=== PATIENT | female | born 1940 | race Caucasian/White ===

== ENCOUNTER 2016-09-03 02:55 | Inpatient (IN) | payer OTHER ==
[~2016-09-03] VITALS: Ht 152.4 cm; Wt 68.5 kg
[~2016-09-03 02:55] MED LIST: ACET325T96 PO; ADAL1KIT SQ; AMLO-114 PO; ASPCH81X PO; CARV6.25 PO; CLB100 PO; CRAN1CAP15 PO; DOCU-94 PO; FAMO20TA11 PO; FERR325T5 PO; FLV1 PO; LCTX PO; LSN20 PO; METH2.5T PO; METO1TAB71 PO; PRAV80TA2 PO
[2016-09-03] MEDS ORDERED: OPTIRAY 320 IV PRN (03:15)
--- NOTE | 2016-09-03 03:17 | EMERGENCY ROOM VISIT NOTE ---
History Report prepared by Carina: Trinidad Chou Under the Supervision of: Dr. Agustin Odonnell M.D. First contact with patient: 03:03 Chief Complaint: CHEST PAIN Stated Complaint: CHEST PAIN History of Present Illness The patient is a 76 year old female who presents to the Emergency Room with complaints of intermittent central chest pain that began last evening. The patient states that she notices the chest pain more when she takes a deep breath. She additionally notes shortness of breath today, but denies any nausea , headache, or loss of consciousness. The patient notes a history of previous DVTs. She states that recently she developed left sided neck pain and notes that she cannot sleep on her left side. The patient denies any history of an irregular heart beat or kidney failure. Source of History: patient Onset: last evening Position: chest (central) Timing: other (persistent) Modifying Factors (Worsening): breathing (deep) Associated Symptoms: + SOB, No LOC, No headache, No nausea Review of Systems See HPI for pertinent positives & negatives. A total of 10 systems reviewed and were otherwise negative. Past Medical & Surgical Medical Problems: (1) Carpal Tunnel Syndrome (2) Hx Of Breast Malignancy (3) Hx-Venous Thrombosis&Embolism (4) Hypertension Nos (5) Osteoarthros Nos-Unspec Surgical Problems: (1) Knee Joint Replacement Status Family History Cancer Heart disease Hypertension Social History Smoking Status: Never Smoker Alcohol Use: none Drug Use: none Marital Status: Housing Status: lives with family Occupation Status: retired Current/Historical Medications Scheduled Acetaminophen Tab (Tylenol), 650 MG PO HS Adalimumab (Humira), 40 MG SQ MONTHLY Amlodipine (Norvasc), 10 MG PO DAILY Aspirin (Aspirin Chewable), 81 MG PO DAILY Carvedilol (Coreg), 6.25 MG PO BID Cranberry-Vitamin C-Vitamin E (Cranberry), 1 CAP PO DAILY Famotidine (Pepcid), 20 MG PO BID Ferrous Sulfate (Ferrous Sulfate), 325 MG PO DAILY Folic Acid (Folvite *), 1 MG PO DAILY Lactobacillus Acidophilus (Lactinex), 1 TAB PO DAILY Lisinopril (Zestril), 20 MG PO BID Methotrexate (Methotrexate), 10 MG PO WK Metoprolol Succinate (Toprolxl (Toprol-Xl), 200 MG PO HS Pravastatin Sodium (Pravastatin Sodium), 80 MG PO HS Scheduled PRN Celecoxib (Celebrex), 100 MG PO DAILY PRN for Pain Docusate Sodium (Colace), 100 MG PO DAILY PRN for Constipation Allergies Coded Allergies: No Known Allergies (Verified , NONE, 05/03/16) Physical Exam Vital Signs Date Time Temp Pulse Resp B/P Pulse Ox O2 Delivery O2 Flow Rate FiO2 09/03/16 04:59 80 20 107/64 93 Room Air 09/03/16 04:41 82 15 126/76 94 Room Air 09/03/16 03:07 97 09/03/16 03:05 Room Air 09/03/16 02:56 36.6 72 20 135/64 97 Room Air Physical Exam GENERAL: Patient is well and elderly appearing and in minimal distress. HEENT: No acute trauma, normocephalic atraumatic, mucous membranes moist, no nasal congestion, no scleral icterus. NECK: No stridor, no adenopathy, no meningismus, trachea is midline. LUNGS: No dyspnea. Clear to auscultation and equal bilaterally. No wheeze, no rhonchi. HEART: Irregular rate and rhythm. No murmurs, rubs, gallops appreciated. ABDOMEN: Soft, nontender, bowel sounds positive, no masses appreciated, no peritonitis. BACK: No midline tenderness, no CVA tenderness EXTREMITIES: Normal motion all extremities, no cyanosis, no edema. NEUROLOGIC: Alert and oriented, no acute motor or sensory deficits, no focal weakness, cranial nerves grossly intact. SKIN: No rash, no jaundice, no diaphoresis. Medical Decision & Procedures ER Provider Diagnostic Interpretation: X ray results are stated below per my interpretation: Chest: 1 view: No infiltrate, no effusion, normal cardiac border. Multiple small nodules noted in bilateral lungs. X ray results and stated below per my interpretation and radiologist interpretation. Other radiology results and stated below per my review and radiologist interpretation: CT Chest: Comparison February 2013 No evidence for PE. Cardiomegaly. Small hiatal hernia. Small right pleural effusion. Areas of suspected atelectasis. Septal thickening. Correlate for edema. Lung nodules. Some of these nodules are stable compared to the prior, for example nodule left lung apex. Other nodules do appear increased in size, example subpleural nodular density in right middle lobe. Possible new and/or worsening nodules, example lingula. Left renal cyst, similar appearing skin thickening in the right breast, hiatal hernia and other incidental findings. Radiologist: Edgar Rodriguez MD Study ready at 0354 and initial results transmitted at 0443 Laboratory Results 09/03/16 03:13 Red Blood Count 3.53, Mean Corpuscular Volume 100.3, Mean Corpuscular Hemoglobin 32.9, Mean Corpuscular Hemoglobin Concent 32.8, Mean Platelet Volume 9.4, Neutrophils (%) (Auto) 75.2, Lymphocytes (%) (Auto) 11.4, Monocytes (%) ( Auto) 11.7, Eosinophils (%) (Auto) 1.1, Basophils (%) (Auto) 0.4, Neutrophils # (Auto) 7.89, Lymphocytes # (Auto) 1.19, Monocytes # (Auto) 1.22, Eosinophils # ( Auto) 0.11, Basophils # (Auto) 0.04 09/03/16 03:13 Test 09/03/16 03:13 09/03/16 03:16 White Blood Count 10.47 K/uL (4.8-10.8) Red Blood Count 3.53 M/uL (4.2-5.4) Hemoglobin 11.6 g/dL (12.0-16.0) Hematocrit 35.4 % (37-47) Mean Corpuscular Volume 100.3 fL (80-100) Mean Corpuscular Hemoglobin 32.9 pg (25-34) Mean Corpuscular Hemoglobin Concent 32.8 g/dl (32-36) Platelet Count 294 K/uL (130-400) Mean Platelet Volume 9.4 fL (7.4-10.4) Neutrophils (%) (Auto) 75.2 % Lymphocytes (%) (Auto) 11.4 % Monocytes (%) (Auto) 11.7 % Eosinophils (%) (Auto) 1.1 % Basophils (%) (Auto) 0.4 % Neutrophils # (Auto) 7.89 K/uL (1.4-6.5) Lymphocytes # (Auto) 1.19 K/uL (1.2-3.4) Monocytes # (Auto) 1.22 K/uL (0.11-0.59) Eosinophils # (Auto) 0.11 K/uL (0-0.5) Basophils # (Auto) 0.04 K/uL (0-0.2) RDW Standard Deviation 52.9 fL (36.4-46.3) RDW Coefficient of Variation 14.6 % (11.5-14.5) Immature Granulocyte % (Auto) 0.2 % Immature Granulocyte # (Auto) 0.02 K/uL (0.00-0.02) Prothrombin Time 10.7 SECONDS (9.0-12.0) Prothromb Time International Ratio 1.0 (0.9-1.1) Activated Partial Thromboplast Time 27.2 SECONDS (21.0-31.0) Partial Thromboplastin Ratio 1.0 Est Creatinine Clear Calc Drug Dose 45.6 ml/min Estimated GFR () 68.4 Estimated GFR (Non- 59.0 BUN/Creatinine Ratio 17.6 (10-20) Calcium Level 9.1 mg/dl (8.5-10.1) Total Creatine Kinase 45 U/L (26-192) Creatine Kinase MB < 0.5 ng/ml (0.5-3.6) Creatine Kinase MB Ratio (0-3.0) Troponin I < 0.015 ng/ml (0-0.045) Bedside Hemoglobin 12.6 g/dl (12.0-16.0) Bedside Hematocrit 37 % (37-47) Bedside Sodium 141 mEq/L (135-144) Bedside Potassium 4.1 mEq/L (3.3-5.0) Bedside Chloride 103 mEq/L (101-112) Bedside Total CO2 23 mEq/l (24-31) Anion Gap 19.0 mmol/L (16-25) Bedside Blood Urea Nitrogen 16 mg/dl (7-18) Bedside Creatinine 0.9 mg/dl (0.6-1.3) Bedside Glucose (other) 120 mg/dl (70-99) Bedside Ionized Calcium (Lance) 1.18 mmol/l (1.12-1.32) Laboratory results as reviewed by me. Medications Administered Medications (Trade) Dose Ordered Sig/Abdirizak Route Start Time Stop Time Status Last Admin Dose Admin Aspirin (Aspirin Chew) 324 mg NOW STAT PO 09/03/16 04:56 09/03/16 04:57 DC 09/03/16 05:14 324 MG ECG Indication: chest pain Rate (beats per minute): 74 Rhythm: atrial fibrillation Findings: no acute ischemic change, other (QTC of 439) Comparison ECG Date: 03/14/14 Change: EKG Change, when compared to EKG on 03/14/14, Atrial fibrillation is new. ED Course 0305: The patient was evaluated in room B4. A complete history and physical exam was performed. 0408: I reevaluated the patient and she states that she is feeling fine. Her son is also here at this time. 0456: I reevaluated the patient and she is resting comfortably. I discussed the exam findings with her and her son and I discussed the treatment plan. They verbalized complete understanding and agreement. The patient will be evaluated for further treatment. Ordered Aspirin 324 mg PO. 050: I discussed the patient's case with Vadim Du. He is going to evaluate the patient for further treatment. Medical Decision Differential: Cardiac Ischemia (STEMI, NSTEMI, Unstable Angina, etc), Aortic Dissection, Arrhythmia, Pulmonary Embolism, Pneumonia, Pneumothorax, MSK, Infectious, Pericarditis/Myocarditis, Esophageal Rupture, Gastrointestinal, amongst other pathologies entertained. Pleasant 76 yr old female arrives much improved from home after awakening with substernal CP that she notes was pleuritic in nature. Feeling well now and EKG without ischemia though does show new onset Afib. Trop negative. Given history of DVT and her report of pleuritic symptoms felt that CT PE would be necessary. Fortunately no PE noted though there are several lung nodules which have increased in size from 2014 and with her history of breast CA this is concerning. I relayed these findings to patient and son. Given CP she will need cardiac rule out and can get further work-up evaluation for afib, though remains with good rate control here in ED as she is already on Toprol XL. Given ASA 324mg and without pain nor discomfort while in ED. Consults Time Called: [phone] Consulting Physician: Vadim Du Returned Call: 050 I discussed the patient's case with Vadim Du. He is going to evaluate the patient for further treatment. Impression Primary Impression: Substernal chest pain Additional Impressions: New onset atrial fibrillation Lung nodules Scribe Attestation The scribe's documentation has been prepared under my direction and personally reviewed by me in its entirety. I confirm that the note above accurately reflects all work, treatment, procedures, and medical decision making performed by me. Departure Information Dispostion Being Evaluated By Hospitalist Referrals Cierra Damian M.D. (MEDICAL) (PCP) Problem Qualifiers
[2016-09-03 03:22] LABS: BASO % 0.4 %; BASO ABS # 0.04 K/uL (0-0.2); COMPLETE YES; EOS % 1.1 %; HEMATOCRIT 35.4 % (37-47); IG% 0.2 %; LYMPH % 11.4 %; LYMPH ABS # 1.19 K/uL (1.2-3.4); MEAN CELL VOLUME 100.3 fL (80-100); MEAN CORPUSCULAR HEMOGLOBIN 32.9 pg (25-34); MEAN CORPUSCULAR HGB CONC 32.8 g/dl (32-36); MEAN PLATELET VOLUME 9.4 fL (7.4-10.4); MONO % 11.7 %; NEUT % 75.2 %; PLATELET COUNT 294 K/uL (130-400); RED BLOOD COUNT 3.53 M/uL (4.2-5.4); WHITE BLOOD COUNT 10.47 K/uL (4.8-10.8)
[2016-09-03 03:32] LABS: ISTAT CREATININE 0.9 mg/dl (0.6-1.3); ISTAT HEMOGLOBIN 12.6 g/dl (12.0-16.0); ISTAT IONIZED CALCIUM 1.18 mmol/l (1.12-1.32)
[2016-09-03 03:36] LABS: PROTHROMBIN TIME (PATIENT) 10.7 SECONDS (9.0-12.0)
[2016-09-03 03:40] LABS: BLOOD UREA NITROGEN 17 mg/dl (7-18); BUN/CREATININE RATIO 17.6 (10-20); CALCIUM 9.1 mg/dl (8.5-10.1); CARBON DIOXIDE 24 mmol/L (21-32); CHLORIDE 106 mmol/L (98-107); CREATININE 0.95 mg/dl (0.60-1.20); GLUCOSE 120 mg/dl (70-99); POTASSIUM 4.1 mmol/L (3.5-5.1); SODIUM 141 mmol/L (136-145)
[2016-09-03] MEDS ORDERED: AMLO-114 PO (04:31)
[2016-09-03] MEDS ORDERED: LISI-725 PO (04:33)
[2016-09-03] MEDS ORDERED: ASPIRIN 324 MG CHEW PO STA (04:56)
[2016-09-03] MEDS ORDERED: ONDANSETRON INJ 2 MG/ML 2 ML VIAL IV PRN (05:45)
[2016-09-03] MEDS ORDERED: ACETAMINOPHEN 325 MG TAB PO PRN (05:45)
[2016-09-03] MEDS ORDERED: NITROGLYCERIN 0.4 MG SL PER TAB CHARGE SL PRN (05:45)
[2016-09-03] MEDS ORDERED: CeleBREX 100 MG CAP PO PRN (06:00)
[2016-09-03] MEDS ORDERED: DOCUSATE SODIUM 100 MG CAP PO PRN (06:00)
[2016-09-03] MEDS ORDERED: HEPARIN SOD 5000 UNIT/0.5 ML CARP ONE (06:09)
[2016-09-03] MEDS ORDERED: HEPARIN 25000 UNIT/500 ML D5W ONE (06:09)
[2016-09-03 06:45] VITALS: BP 130/74; PULSE 83; TEMP 36.6; O2SAT 93; Ht 152.4 cm; Wt 68.5 kg
--- NOTE | 2016-09-03 07:19 | DIAGNOSTIC IMAGING REPORT ---
CHEST ONE VIEW PORTABLE CLINICAL HISTORY: Chest pain. COMPARISON STUDY: Chest CT and chest radiograph March 14, 2014. FINDINGS: There is a trace right pleural effusion. There is pulmonary vascular congestion. Mild cardiomegaly is noted. Note is made of a 1.5 cm nodular density within the right midlung. This has increased. IMPRESSION: 1. Pulmonary vascular congestion with a trace right pleural effusion. 2. 1.5 cm nodular density within the right midlung. This nodule is indeterminate but increased since prior exam. Electronically signed by: Holland Barros M.D. 09/03/2016 7:17 AM Dictated Date/Time: 09/03/2016 7:13 AM
--- NOTE | 2016-09-03 07:42 | DIAGNOSTIC IMAGING REPORT ---
CT ANGIOGRAM OF THE CHEST CLINICAL HISTORY: Atypical chest pain. COMPARISON STUDY: Chest x-ray dated 09/03/2016. Chest CT dated 03/14/2014. TECHNIQUE: Following the IV administration of 92 cc of Optiray 320, CT angiogram of the chest was performed from the upper abdomen to the thoracic inlet utilizing the pulmonary embolus protocol. Images are reviewed in the axial, sagittal, and coronal planes. 3-D MIPS images are created and assessed. IV contrast was administered without complication. CT DOSE: 376.61 mGy.cm FINDINGS: Thyroid: Atrophic. Thoracic aorta: There is mild atherosclerotic calcification of the thoracic aorta, which is normal in caliber and demonstrates standard 3-vessel arch anatomy. No dissection is seen. Pulmonary vasculature: The pulmonary trunk is normal in caliber. There are no filling defects identified in main, lobar, or segmental pulmonary branches to suggest pulmonary embolus. Heart: The heart is enlarged and without pericardial effusion. The coronary arteries are densely calcified. Lungs and pleural spaces: There is biapical scarring. There is a small right pleural effusion and bibasilar atelectasis. No pleural effusion is seen on the left. Curvilinear/nodular scarring is identified in the right middle lobe. The region of nodularity has increased in size from 03/14/2014, now measuring up to 2.2 cm (previously measured 1.6 cm). There is additional focus of subpleural nodularity in the anterior left upper lobe on image #202 which measures up to 10 mm. Patchy nodular density at this site on the 2014 examination. There is scarring noted in the lingula with volume loss. Pleural thickening is identified anteriorly in the right middle lobe. Additional nodules are seen at the left apex on image #20 and 46 measuring 8mm and in the left lower lobe on image #2011 measuring 6 mm. These are unchanged from 03/14/2014. The trachea and central airways appear clear. Mediastinum: There is a prominent subcarinal lymph node which measures up to 1.4 cm in short axis. No additional enlarged mediastinal lymph nodes are identified. Coretta: There are prominent hilar lymph nodes which measure up to 9 mm in short axis. Axillae: There is no axillary lymphadenopathy. Upper abdomen: There is a small to moderate hiatal hernia. A 2.1 cm cyst arises from the upper pole of left kidney. Skeletal structures: The skeletal structures are osteopenic. No lytic or blastic bony lesions are seen. Degenerative change and hyperkyphosis is noted in the thoracic spine. Advanced arthritic change is present in the shoulders. Soft tissues: There is asymmetric dermal thickening identified in the right breast as compared to the left. IMPRESSION: 1. There is no evidence of pulmonary embolus in the main, lobar, or segmental pulmonary arteries. 2. Cardiomegaly. 3. Small right pleural effusion. 4. There is a region of curvilinear scarring with nodularity identified in the right middle lobe. The nodular component has modestly increased in size from 2014, as has a focus of subpleural nodularity in the left upper lobe. There is also increasing pleural thickening in the anterior right middle lobe. The appearance is atypical, and although this may be related to chronic infection or inflammation a [address] follow-up is recommended. Neoplasm is considered less likely but remains the diagnosis of exclusion. 5. Additional pulmonary nodules are unchanged from the 2014 examination. 6. Asymmetric dermal thickening in the right breast is identified, and appears similar to the 2014 examination. If not recently performed follow-up with mammography is recommended for further assessment. Electronically signed by: Óscar Thornton M.D. 09/03/2016 7:40 AM Dictated Date/Time: 09/03/2016 7:28 AM
--- NOTE | 2016-09-03 07:52 | HISTORY & PHYSICAL EXAMINATION ---
DATE OF ADMISSION: 09/03/2016 PRIMARY CARE PHYSICIAN: Dr. Damian. CHIEF COMPLAINT: Sharp center chest pain when waking with deep breathing. HISTORY OF PRESENT COMPLAINT: She is a 76-year-old female with significant past medical history including severe rheumatoid arthritis, hypertension, hyperlipidemia, iron-deficiency anemia and remote history of deep venous thrombosis on the right leg. Apparently, woke up early this morning with center and back of the chest pain that was worse with deep breathing. She did have some shortness of breath with it. She did not have any nausea, vomiting, any palpitation associated with it. She denies to any fever, chills or rigors. She denies to any problem with urine and/or bowel habits. She does not have any acute arthritis involving any joint and no headache, blurred vision, numbness or tingling in the extremities. In the Emergency Room, she was noted to have an irregularly irregular heart rhythm, but the rate was controlled. An apparent CAT scan of the chest did not show any pulmonary embolism, but given the chest pain and new onset atrial fibrillation, she was advised to the telemetry unit for continuation of care. PAST MEDICAL HISTORY: Significant for severe rheumatoid arthritis, hypertension, hyperlipidemia, iron-deficiency anemia and history of swallowing problems. PAST SURGICAL HISTORY: Left total knee arthroplasty, right total knee arthroplasty, carpal tunnel surgery and partial mastectomy. FAMILY HISTORY: Sister has diabetes. Father had heart disorder. Mother had heart disorder. Father had hypertension too. SOCIAL HISTORY: She is . She lives with her son. She does not smoke and does not drink and she has been reasonably ambulant. ALLERGIES: NKDA. MEDICATIONS: She has been on Tylenol 650 mg at night, amlodipine 10 mg daily, aspirin 81 mg daily, Coreg 6.25 mg b.i.d., Celebrex 100 mg daily, docusate sodium 100 mg daily, Pepcid 20 mg b.i.d., ferrous sulfate 325 mg daily, folic acid 1 mg daily, Lactinex 1 tablet daily, lisinopril 20 mg b.i.d., methotrexate 10 mg every week, Toprol-XL 200 mg at bedtime, Humira as directed, cranberry 1 capsule daily and pravastatin 40 mg daily. REVIEW OF SYSTEMS: Other system review is unremarkable except noted in history of present illness. PHYSICAL EXAMINATION: GENERAL: On examination in the Emergency Room, she was not having any acute symptoms, but she did mention that she still has some pain in the chest. VITAL SIGNS: Temperature 36.6, pulse was 80, blood pressure 107/64, saturation 93% on room air. HEENT: Unremarkable. NECK: Supple. No JVD, no bruit. CHEST: Decreased breath sound at bases, but no wheezing and/or crackles. HEART: S1, S2, irregular with a 2/6 systolic murmur over precordium. ABDOMEN: Soft, benign, nontender, no organomegaly. Bowel sounds present. EXTREMITIES: Trace edema bilaterally. MUSCULOSKELETAL: Examination of the musculoskeletal system did show changes of severe rheumatoid arthritis involving hands and feet, but no acute arthritis in any joint. CENTRAL NERVOUS SYSTEM: She was alert, awake, oriented x3. No focal sensory and/or motor deficit appreciated. LABORATORY DATA: Noted today white count was 10.47, H\T\H 11.6/35.4, platelets was 294. Sodium 141, potassium 4.1, chloride 103, carbon dioxide 24, BUN 16, creatinine 0.95, random glucose 120, ionized calcium 1.18, troponin less than 0.015. INR 1.0, PTT ratio 1.0. CT of the chest reported as no evidence of pulmonary embolism. It did show cardiomegaly as well as a small hiatal hernia, a small right pleural effusion and areas of suspected atelectasis. There are lung nodules noted, some of these nodules seem to be stable and others are slightly bigger. Further followup advised. Left renal cyst, similar-appearing skin thickening in the right breast and partial hiatal hernia. I will wait for a formal report. EKG was in atrial fibrillation, rate of [address]-T wave changes. IMPRESSION AND PLAN: 1. Atrial fibrillation with controlled heart rate. The patient will be admitted to telemetry unit. She will be started with intravenous heparin and echocardiogram and cardiology consultation. We will continue her current medications. Further management will depend on claims correspondence clerk. 2. Sharp central chest pain, no evidence of pulmonary embolism. She has a history of breast mass and also a history of deep vein thrombosis. A small pulmonary emboli causing the pain cannot be ruled out. Again, serial cardiac enzymes and echocardiogram to rule out acute coronary syndrome. 3. Severe rheumatoid arthritis. Continue with methotrexate. She also takes Humira which will be on hold for now since she is in the hospital. 4. Hypertension. Blood pressure seems to be controlled. 5. Hyperlipidemia. Continue with current medication. 6. Iron-deficiency anemia. Continue with iron tablet. 7. Gastrointestinal prophylaxis with Pepcid. 8. Deep vein thrombosis prophylaxis. She will be put on heparin. 9. Code status. She will be a full code. In my clinical assessment, the beneficiary meets criteria as per CMS for 2 midnight stay in the hospital. ADONIS
[2016-09-03 08:00] VITALS: O2SAT 93
[2016-09-03] MEDS: FAMOTIDINE 20 MG TAB PO SCH ×2 (09:00→19:59)
[2016-09-03] MEDS: FERROUS SULFATE 325 MG TAB PO SCH (09:00)
[2016-09-03] MEDS: CARVEDILOL 6.25 MG TAB PO SCH ×2 (09:00→20:02)
[2016-09-03] MEDS ORDERED: NON-FORMULARY MEDICATION (Cranberry-Vitamin C-Vitamin E (Cranberry) 1 CAP) PO SCH (09:00)
[2016-09-03] MEDS: AMLODIPINE BESYLATE 5 MG TAB PO SCH (09:00)
[2016-09-03] MEDS: LISINOPRIL 20 MG TAB PO SCH ×2 (09:00→20:01)
[2016-09-03] MEDS: ASPIRIN 81 MG ECTAB PO SCH (09:00)
[2016-09-03 12:00] VITALS: O2SAT 93
[2016-09-03 13:03] LABS: PARTIAL THROMBOPLASTIN RATIO 1.7
[2016-09-03] MEDS: LACTOBACILLUS ACIDOPHILUS (FLORANEX) TAB PO SCH (13:36)
--- NOTE | 2016-09-03 14:09 | CARDIOLOGY CONSULTATION ---
DATE OF CONSULTATION: 09/03/2016 DATE OF CONSULTATION: 09/03/2016. This is a consultation for Dr. Donohue. REASON FOR CONSULTATION: Atrial fibrillation. HISTORY OF PRESENT ILLNESS: This is a 76-year-old female who has been treated for rheumatoid arthritis, iron deficiency anemia, hypertension and dyslipidemia. The patient was in her usual state of health until earlier this morning when she suddenly awoke with epigastric retrosternal chest pain radiating to her back. When she presented to the Emergency Department, she was found to be in atrial fibrillation. The length of time she has been in atrial fibrillation is unknown. She did not have tachycardia and her rate was controlled. She has been on carvedilol, which may have blunted the response to the atrial fibrillation. She has no significant cardiac history. No prior history of congestive heart failure or cardiac arrhythmias. No prior history of coronary artery disease. In the Emergency Department, the patient had a CAT scan that did not show any evidence of pulmonary emboli. Her cardiac markers are negative and she has no acute changes on her EKG. She is currently comfortable and pain free. To my knowledge I did not believe she received any treatment for her atrial fibrillation other than being started on intravenous heparin. ALLERGIES: No known medical allergies. PAST MEDICAL HISTORY: As outlined in history of chief complaint. The patient has a history of severe rheumatoid arthritis, hypertension, hyperlipidemia, iron deficiency anemia, bilateral total knee replacements. FAMILY MEDICAL HISTORY: Noncontributory. SOCIAL HISTORY: She is but lives with her son. She is a nonsmoker. REVIEW OF SYSTEMS: A 10-point review of systems is negative except for the history of chief complaint. PHYSICAL EXAMINATION: GENERAL: She is alert and oriented in no acute distress. VITAL SIGNS: Pulse is irregular at 75 beats per minute and she is afebrile, blood pressure is 110/60. HEAD, EYES, EARS, NOSE, AND THROAT: She wears corrective lenses. Mucous membranes are moist. NECK: The neck veins are flat. Carotids have good upstrokes bilaterally without bruits. Thyroid is nonpalpable. RESPIRATORY: Breath sounds equal bilaterally and clear to auscultation. CARDIOVASCULAR: Heart has an irregular rhythm. There is a systolic murmur along the left sternal border. No S3, S4. GASTROINTESTINAL: Abdomen is soft, nontender without organomegaly. EXTREMITIES: Free of edema, digit clubbing, or cyanosis. NEUROLOGIC: Grossly intact. SKIN: Warm to touch. LYMPH NODES: Negative to palpation. LABORATORY DATA: Per the history of chief complaint. IMPRESSION: 1. Newly discovered atrial fibrillation which is asymptomatic. 2. Sharp chest discomfort radiating to the patient's back of undetermined etiology. 3. Severe rheumatoid arthritis. 4. Hypertension. 5. Hyperlipidemia. 6. Iron deficiency anemia. RECOMMENDATIONS: I will review the patient's echocardiogram when it is complete. It is possible that the atrial fibrillation is just a coincidence being discovered this admission. Her chest pain is somewhat atypical and could be due to her rheumatoid arthritis and pain along the costosternal joints. She could also have symptoms related to a GI problem such as cholelithiasis. In any case, I will review the echocardiogram when it is available. I would continue the intravenous heparin. All her other medications should remain the same. We will follow along with you during her hospital stay.
--- NOTE | 2016-09-03 14:37 | ECHOCARDIOGRAM REPORT ---
*NOTICE TO RECEIVING REPUBLICAN AGENCY This information is strictly Confidential and protected under [place] law. [place] law prohibits you from making any further disclosure of this information unless further disclosure is expressly permitted by the written consent of the person to whom it pertains or is authorized by law. A general authorization for the release of medical or other information is not sufficient for this purpose. Hospital accepts no responsibility if the information is made available to any other person, INCLUDING THE PATIENT. Interpretation Summary * Name: MAAME ANGULO V Study Date: 09/03/2016 08:39 AM BP: 130/74 mmHg * Patient Location: [facility]\S\N282\S\1 HR: 77 * : 1940 (M/d/yyyy) Gender: Female Height: 60 in * Age: 76 yrs Ethnicity: CA Weight: 155 lb * Ordering Physician: Rosalina Donohue * Referring Physician: Self, Referred * Performed By: Janeen Craft RDCS * * Reason For Study: Atrial Fibrillation * BSA: 1.7 m2 * -- Conclusions -- * The left atrium is severely dilated. * The right atrium is moderate to severely dilated. * The left ventricle is normal in size. * Ejection Fraction = 55-60%. * The right ventricular systolic function is normal. * There is mild mitral regurgitation. * There is moderate tricuspid regurgitation. Procedure Details * A complete two-dimensional transthoracic echocardiogram was performed (2D, M-mode, Doppler and color flow Doppler). Left Ventricle * The left ventricle is normal in size. * There is normal left ventricular wall thickness. * Ejection Fraction = 55-60%. * Left ventricular systolic function is normal. * The left ventricular wall motion is normal. Right Ventricle * The right ventricle is normal size. * The right ventricular systolic function is normal. Atria * The left atrium is severely dilated. * The right atrium is moderate to severely dilated. * The interatrial septum is intact with no evidence for an atrial septal defect. Mitral Valve * The mitral valve is grossly normal. * There is mild mitral regurgitation. Tricuspid Valve * The tricuspid valve is not well visualized, but is grossly normal. * There is moderate tricuspid regurgitation. Aortic Valve * The aortic valve is tricuspid. The leaflet thickness if normal. There is no aortic stenosis, and no significant insufficiency. * Aortic stenosis is absent. * There is no significant aortic regurgitation. Great Vessels * The aortic root and proximal ascending aorta are normal sized. Pericardium/Pleural * There is no pericardial effusion. MMode 2D Measurements and Calculations IVSd 1.1 cm IVSs 1.2 cm LVIDd 4.5 cm LVIDs 3.2 cm LVPWd 1.1 cm LVPWs 1.2 cm IVS/LVPW 0.97 FS 28.8 % EDV(Teich) 92.0 ml ESV(Teich) 40.9 ml EF(Teich) 55.5 % EDV(cubed) 90.5 ml ESV(cubed) 32.7 ml EF(cubed) 63.9 % % IVS thick 9.8 % % LVPW thick 9.8 % LV mass(C)d 167.2 grams LV mass(C)dI 99.8 grams/m\S\2 LV mass(C)s 115.0 grams LV mass(C)sI 68.6 grams/m\S\2 SV(Teich) 51.1 ml SI(Teich) 30.5 ml/m\S\2 SV(cubed) 57.8 ml SI(cubed) 34.5 ml/m\S\2 Ao root diam 2.7 cm Ao root area 5.7 cm\S\2 ACS 1.6 cm LA dimension 4.2 cm LA/Ao 1.6 LVAd ap4 18.2 cm\S\2 LVLd ap4 7.3 cm EDV(MOD-sp4) 42.1 ml EDV(sp4-el) 38.6 ml LVAs ap4 11.8 cm\S\2 LVLs ap4 6.6 cm ESV(MOD-sp4) 19.4 ml ESV(sp4-el) 18.0 ml EF(MOD-sp4) 53.8 % EF(sp4-el) 53.3 % LVAd ap2 17.8 cm\S\2 LVLd ap2 7.0 cm EDV(MOD-sp2) 39.2 ml EDV(sp2-el) 38.4 ml LVAs ap2 10.9 cm\S\2 LVLs ap2 6.4 cm ESV(MOD-sp2) 18.3 ml ESV(sp2-el) 15.9 ml EF(MOD-sp2) 53.3 % EF(sp2-el) 58.6 % LVLd %diff -4.29 % EDV(MOD-bp) 39.4 ml LVLs %diff -3.29 % ESV(MOD-bp) 18.3 ml EF(MOD-bp) 53.6 % SV(MOD-sp4) 22.6 ml SI(MOD-sp4) 13.5 ml/m\S\2 SV(MOD-sp2) 20.9 ml SI(MOD-sp2) 12.5 ml/m\S\2 SV(MOD-bp) 21.1 ml SI(MOD-bp) 12.6 ml/m\S\2 SV(sp4-el) 20.6 ml SI(sp4-el) 12.3 ml/m\S\2 SV(sp2-el) 22.5 ml SI(sp2-el) 13.5 ml/m\S\2 Doppler Measurements and Calculations Ao V2 max 148.0 cm/sec Ao max PG 8.8 mmHg Ao max PG (full) 5.5 mmHg LV V1 max PG 3.2 mmHg LV V1 max 89.7 cm/sec PA V2 max 116.7 cm/sec PA max PG 5.5 mmHg PI max shaw 180.5 cm/sec PI max PG 13.0 mmHg PI dec slope 124.5 cm/sec\S\2 PI P1/2t 424.7 msec TR max shaw 247.0 cm/sec
[2016-09-03] MEDS: HEPARIN 25,000 UNIT/500ML D5W 500 ML IV PRN ×2 (14:47→22:24)
[2016-09-03] MEDS ORDERED: HEPARIN IV BOLUS 2,000 UNIT in SYRINGE 0 ML IV ONE (15:00)
[2016-09-03 15:29] VITALS: BP 122/69; PULSE 76; TEMP 36.7; O2SAT 90
[2016-09-03] MEDS ORDERED: WARFARIN SOD 7.5 MG TAB PO SCH (16:00)
--- NOTE | 2016-09-03 17:17 | Progress Note ---
Medicine Progress Note Date & Time of Visit: Sep 03, 2016 at 17:07. Subjective Patient seen and examined. Still with some chest pain, but improved compared to yesterday. Denies SOB, palpitations. Objective Last 8 Hrs Date Time Temp Pulse Resp B/P Pulse Ox O2 Delivery O2 Flow Rate FiO2 09/03/16 15:29 36.7 76 18 122/69 90 Room Air 09/03/16 12:00 93 Room Air Physical Exam: General-awake; alert; NAD Eyes-EOMI; no scleral icterus Neck-no stridor; trachea midline Lungs-CTA bilaterally; no wheezes/crackles Heart-irregularly irregular Abdomen-soft; NTND; nBS Extremities-rheumatoid deformities of hands Neuro-no gross focal deficits Laboratory Results: Last 24 Hours Test 09/03/16 03:13 09/03/16 03:16 09/03/16 12:40 White Blood Count 10.47 K/uL Red Blood Count 3.53 M/uL Hemoglobin 11.6 g/dL Hematocrit 35.4 % Mean Corpuscular Volume 100.3 fL Mean Corpuscular Hemoglobin 32.9 pg Mean Corpuscular Hemoglobin Concent 32.8 g/dl Platelet Count 294 K/uL Mean Platelet Volume 9.4 fL Neutrophils (%) (Auto) 75.2 % Lymphocytes (%) (Auto) 11.4 % Monocytes (%) (Auto) 11.7 % Eosinophils (%) (Auto) 1.1 % Basophils (%) (Auto) 0.4 % Neutrophils # (Auto) 7.89 K/uL Lymphocytes # (Auto) 1.19 K/uL Monocytes # (Auto) 1.22 K/uL Eosinophils # (Auto) 0.11 K/uL Basophils # (Auto) 0.04 K/uL RDW Standard Deviation 52.9 fL RDW Coefficient of Variation 14.6 % Immature Granulocyte % (Auto) 0.2 % Immature Granulocyte # (Auto) 0.02 K/uL Prothrombin Time 10.7 SECONDS Prothromb Time International Ratio 1.0 Activated Partial Thromboplast Time 27.2 SECONDS 43.1 SECONDS Partial Thromboplastin Ratio 1.0 1.7 Sodium Level 141 mmol/L Potassium Level 4.1 mmol/L Chloride Level 106 mmol/L Carbon Dioxide Level 24 mmol/L Anion Gap 11.0 mmol/L 19.0 mmol/L Blood Urea Nitrogen 17 mg/dl Creatinine 0.95 mg/dl Est Creatinine Clear Calc Drug Dose 45.6 ml/min Estimated GFR () 68.4 Estimated GFR (Non- 59.0 BUN/Creatinine Ratio 17.6 Random Glucose 120 mg/dl Calcium Level 9.1 mg/dl Total Creatine Kinase 45 U/L 35 U/L Creatine Kinase MB < 0.5 ng/ml < 0.5 ng/ml Creatine Kinase MB Ratio Troponin I < 0.015 ng/ml < 0.015 ng/ml Bedside Hemoglobin 12.6 g/dl Bedside Hematocrit 37 % Bedside Sodium 141 mEq/L Bedside Potassium 4.1 mEq/L Bedside Chloride 103 mEq/L Bedside Total CO2 23 mEq/l Bedside Blood Urea Nitrogen 16 mg/dl Bedside Creatinine 0.9 mg/dl Bedside Glucose (other) 120 mg/dl Bedside Ionized Calcium (Lance) 1.18 mmol/l Assessment & Plan Atypical chest pain - Cardiology consulted - ACS r/o - TTE without wall motion abnormalities - CT chest negative for PE - continue aspirin New onset A fib - Cardiology consulted - rate controlled with metoprolol and carvedilol - continue heparin gtt - warfarin started HTN - continue amlodipine, carvedilol, lisinopril, metoprolol RA - continue methotrexate and folic acid Consultants: Cardiology Procedures: TTE * The left atrium is severely dilated. * The right atrium is moderate to severely dilated. * The left ventricle is normal in size. * Ejection Fraction = 55-60%. * The right ventricular systolic function is normal. * There is mild mitral regurgitation. * There is moderate tricuspid regurgitation. CT chest 1. There is no evidence of pulmonary embolus in the main, lobar, or segmental pulmonary arteries. 2. Cardiomegaly. 3. Small right pleural effusion. 4. There is a region of curvilinear scarring with nodularity identified in the right middle lobe. The nodular component has modestly increased in size from 2014, as has a focus of subpleural nodularity in the left upper lobe. There is also increasing pleural thickening in the anterior right middle lobe. The appearance is atypical, and although this may be related to chronic infection or inflammation a [address] follow-up is recommended. Neoplasm is considered less likely but remains the diagnosis of exclusion. 5. Additional pulmonary nodules are unchanged from the 2014 examination. 6. Asymmetric dermal thickening in the right breast is identified, and appears similar to the 2014 examination. If not recently performed follow-up with mammography is recommended for further assessment. Current Inpatient Medications: Current Inpatient Medications Medications (Trade) Dose Ordered Sig/Abdirizak Route Start Time Stop Time Status Last Admin Dose Admin Ioversol (Optiray 320) 100 ml UD PRN IV 09/03/16 03:15 09/07/16 03:14 Acetaminophen (Tylenol Tab) 650 mg Q4H PRN PO 09/03/16 05:45 10/03/16 05:44 Ondansetron HCl (Zofran Inj) 4 mg Q6H PRN IV 09/03/16 05:45 10/03/16 05:44 Nitroglycerin (Nitrostat Tab) 0.4 mg UD PRN SL 09/03/16 05:45 10/03/16 05:44 Acetaminophen (Tylenol Tab) 650 mg HS PO 09/03/16 21:00 10/03/16 20:59 Amlodipine Besylate (Norvasc Tab) 10 mg DAILY PO 09/03/16 09:00 10/03/16 08:59 Aspirin (Ecotrin Tab) 81 mg DAILY PO 09/03/16 09:00 10/03/16 08:59 Carvedilol (Coreg Tab) 6.25 mg BID PO 09/03/16 09:00 10/03/16 08:59 Celecoxib (CeleBREX CAP) 100 mg DAILY PRN PO 09/03/16 06:00 10/03/16 05:59 Docusate Sodium (coLACE CAP) 100 mg DAILY PRN PO 09/03/16 06:00 10/03/16 05:59 Famotidine (Pepcid Tab) 20 mg BID PO 09/03/16 09:00 10/03/16 08:59 Ferrous Sulfate (Feosol Tab) 325 mg DAILY PO 09/03/16 09:00 10/03/16 08:59 09/03/16 09:00 325 MG Folic Acid (Folvite Tab) 1 mg DAILY PO 09/03/16 09:00 10/03/16 08:59 Lactobacillus Acidophilus (Floranex Tab) 1 tab DAILY PO 09/03/16 09:00 10/03/16 08:59 09/03/16 13:36 1 TAB Lisinopril (Zestril Tab) 20 mg BID PO 09/03/16 09:00 10/03/16 08:59 Methotrexate (Methotrexate Tab) 10 mg We@0900 PO 09/09/16 09:00 10/09/16 08:59 Metoprolol Succinate (Toprol Xl Tab) 200 mg HS PO 09/03/16 21:00 10/03/16 20:59 Pravastatin Sodium 80 mg 80 mg HS PO 09/03/16 21:00 10/03/16 20:59 Heparin Sodium/ Dextrose (Heparin 25,000 Unit/500ml D5W) 500 ml @ 14 mls/hr Q24H PRN IV 09/03/16 07:45 10/03/16 07:44 09/03/16 14:47 14 MLS/HR Warfarin Sodium (Coumadin Tab) 7.5 mg DAILY@16 PO 09/03/16 16:00 10/03/16 15:59 09/03/16 15:58 7.5 MG
[2016-09-03 19:52] VITALS: BP 117/65; PULSE 76; TEMP 36.9; O2SAT 100
[2016-09-03] MEDS ORDERED: PRAVASTATIN SOD 40 MG TAB PO SCH ×2 (21:00)
[2016-09-03] MEDS ORDERED: METOPROLOL SUCC 50MG EXT REL TAB PO SCH (21:00)
[2016-09-03] MEDS ORDERED: ACETAMINOPHEN 325 MG TAB PO SCH (21:00)
[2016-09-03 21:42] LABS: PARTIAL THROMBOPLASTIN RATIO 1.7
[2016-09-03] MEDS ORDERED: HEPARIN IV BOLUS 2,000 UNIT in SYRINGE 0 ML IV STA (22:16)
[2016-09-03 23:21] VITALS: BP 116/74; PULSE 60; TEMP 36.5; O2SAT 94
[2016-09-04 04:53] VITALS: BP 100/52; PULSE 74; TEMP 36.7; O2SAT 93
[2016-09-04 05:09] LABS: INR 1.2 (0.9-1.1); PARTIAL THROMBOPLASTIN RATIO 2.4; PROTHROMBIN TIME (PATIENT) 12.7 SECONDS (9.0-12.0)
[2016-09-04 07:15] VITALS: BP 102/67; PULSE 63; TEMP 36.4; O2SAT 95
[2016-09-04 07:21] LABS: HEMATOCRIT 32.7 % (37-47); MEAN CELL VOLUME 97.3 fL (80-100); MEAN CORPUSCULAR HEMOGLOBIN 31.8 pg (25-34); MEAN CORPUSCULAR HGB CONC 32.7 g/dl (32-36); MEAN PLATELET VOLUME 9.3 fL (7.4-10.4); PLATELET COUNT 254 K/uL (130-400); RED BLOOD COUNT 3.36 M/uL (4.2-5.4); WHITE BLOOD COUNT 5.81 K/uL (4.8-10.8)
[2016-09-04 07:58] LABS: BUN/CREATININE RATIO 14.3 (10-20); CALCIUM 8.9 mg/dl (8.5-10.1); CREATININE 0.78 mg/dl (0.60-1.20); POTASSIUM 3.7 mmol/L (3.5-5.1)
[2016-09-04] MEDS: CARVEDILOL 6.25 MG TAB PO SCH (08:00)
[2016-09-04] MEDS: FERROUS SULFATE 325 MG TAB PO SCH (08:00)
[2016-09-04] MEDS: FAMOTIDINE 20 MG TAB PO SCH (08:00)
[2016-09-04] MEDS: LACTOBACILLUS ACIDOPHILUS (FLORANEX) TAB PO SCH (08:00)
[2016-09-04] MEDS: LISINOPRIL 20 MG TAB PO SCH (08:01)
[2016-09-04] MEDS: AMLODIPINE BESYLATE 5 MG TAB PO SCH (08:02)
[2016-09-04] MEDS: ASPIRIN 81 MG ECTAB PO SCH (08:02)
[2016-09-04 11:33] VITALS: BP 100/68; PULSE 75; TEMP 36.5; O2SAT 93
[2016-09-04 15:10] VITALS: BP 100/68; PULSE 75; TEMP 36.5; O2SAT 93
--- NOTE | 2016-09-04 15:15 | PROGRESS NOTE ---
DATE: 09/04/2016 FOLLOWUP VISIT SUBJECTIVE: The patient is a 76-year-old female with a history of severe rheumatoid arthritis, iron deficiency anemia, hypertension and dyslipidemia. She was admitted with atypical chest pain. She was found after admission to have newly discovered atrial fibrillation. Atrial fibrillation is completely asymptomatic. The rate is controlled with carvedilol. She has no new complaints today and has been pain free since admission. OBJECTIVE: VITAL SIGNS: Blood pressure is 100/60. Pulse is irregular at 75. GENERAL: She is afebrile. HEENT: She is normocephalic. Pupils are equal and reactive to light. Extraocular muscles are intact bilaterally. NECK: The neck veins are flat. Carotids have good upstrokes bilaterally without bruits. Thyroid is nonpalpable. RESPIRATORY: Breath sounds equal bilaterally and clear to auscultation. CARDIOVASCULAR: Heart has an irregular rhythm. Normal S1 and S2. No S3 or S4. No cardiac rubs or murmurs. GASTROINTESTINAL: Abdomen is soft and nontender without organomegaly. EXTREMITIES: Free of edema, digit clubbing, or cyanosis. NEUROLOGIC: Grossly intact. SKIN: Warm to touch. LYMPH NODES: Negative to palpation. IMPRESSION: 1. Chronic atrial fibrillation. 2. Severe rheumatoid arthritis. 3. Iron deficiency anemia. RECOMMENDATIONS: Given the patient's age and severe rheumatoid arthritis with the possibility of fall along with her chronic anemia, I do not believe that she is a good candidate for a long-term anticoagulation with warfarin or other anticoagulants. I would continue her on aspirin 81 mg daily. She was admitted on metoprolol and carvedilol and one of these beta blockers I would discontinue. We will follow her closely as an outpatient and I have made arrangements for her to be seen next week in the office.
--- NOTE | 2016-09-04 15:17 | Discharge Instructions ---
Discharge Instructions Admission Reason for Admission: Atrial Fibrillation, Chest Pain Discharge Discharge Diagnosis / Problem: Atrial fibrillation Discharge Goals Goal(s): Improve disease control Activity Recommendations Activity Limitations: resume your previous activity . Instructions / Follow-Up Instructions / Follow-Up Please follow up with Family Medicine Dr. Damian on September 08 at 2:10pm. You will be contacted regarding a Cardiology follow up appointment with Dr. Ocasio. Current Hospital Diet Patient's current hospital diet: AHA Diet (Heart Healthy) Discharge Diet Recommended Diet: AHA Diet (Heart Healthy) Pending Studies Studies pending at discharge: no Medical Emergencies . Who to Call and When: Medical Emergencies: If at any time you feel your situation is an emergency, please call 911 immediately. . Non-Emergent Contact Non-Emergency issues call your: Primary Care Provider . . "Provider Documentation" section prepared by Sarah Loya. VTE Core Measure Inpt VTE Proph given/why not?: Other Anticoagulation
--- NOTE | 2016-09-04 19:41 | Discharge Summary ---
Discharge Summary Admission Date: Sep 03, 2016 at 05:52 Discharge Date: Sep 04, 2016 Discharge Disposition: Home Principal Diagnosis: Atypical chest pain Secondary Diagnoses/Problems: Atrial fibrillation Procedures: TTE * The left atrium is severely dilated. * The right atrium is moderate to severely dilated. * The left ventricle is normal in size. * Ejection Fraction = 55-60%. * The right ventricular systolic function is normal. * There is mild mitral regurgitation. * There is moderate tricuspid regurgitation. CT chest 1. There is no evidence of pulmonary embolus in the main, lobar, or segmental pulmonary arteries. 2. Cardiomegaly. 3. Small right pleural effusion. 4. There is a region of curvilinear scarring with nodularity identified in the right middle lobe. The nodular component has modestly increased in size from 2014, as has a focus of subpleural nodularity in the left upper lobe. There is also increasing pleural thickening in the anterior right middle lobe. The appearance is atypical, and although this may be related to chronic infection or inflammation a [address] follow-up is recommended. Neoplasm is considered less likely but remains the diagnosis of exclusion. 5. Additional pulmonary nodules are unchanged from the 2014 examination. 6. Asymmetric dermal thickening in the right breast is identified, and appears similar to the 2014 examination. If not recently performed follow-up with mammography is recommended for further assessment. Consultations: Cardiology Medication Reconciliation Continued Medications: Acetaminophen Tab (Tylenol) 325 Mg Tab 650 MG PO HS, TAB Adalimumab (Humira) 40 Mg/0.8 Ml Kit 40 MG SQ MONTHLY Amlodipine (Norvasc) 10 Mg Tab 10 MG PO DAILY, TAB Aspirin (Aspirin Chewable) 81 Mg Chew 81 MG PO DAILY, TAB Celecoxib (Celebrex) 100 Mg Cap 100 MG PO DAILY PRN for Pain Cranberry-Vitamin C-Vitamin E (Cranberry) 1 Cap Cap 1 CAP PO DAILY Docusate Sodium (Colace) 100 Mg Cap 100 MG PO DAILY PRN for Constipation Famotidine (Pepcid) 20 Mg Tab 20 MG PO BID Ferrous Sulfate (Ferrous Sulfate) 325 Mg Tab 325 MG PO DAILY Folic Acid (Folvite *) 1 Mg Tab 1 MG PO DAILY Lactobacillus Acidophilus (Lactinex) Tab 1 TAB PO DAILY, TAB Lisinopril (Zestril) 20 Mg Tab 20 MG PO BID, TAB Methotrexate (Methotrexate) 2.5 Mg Tab 10 MG PO WK TAKE THIS MED EVERY WEDNESDAY. Metoprolol Succinate (Toprolxl (Toprol-Xl) 200 Mg Tabcr 200 MG PO HS, TAB Pravastatin Sodium (Pravastatin Sodium) 80 Mg Tab 80 MG PO HS Discontinued Medications: Carvedilol (Coreg) 6.25 Mg Tab 6.25 MG PO BID, TAB Admission Information HPI (per Admitting provider): She is a 76-year-old female with significant past medical history including severe rheumatoid arthritis, hypertension, hyperlipidemia, iron-deficiency anemia and remote history of deep venous thrombosis on the right leg. Apparently, woke up early this morning with center and back of the chest pain that was worse with deep breathing. She did have some shortness of breath with it. She did not have any nausea, vomiting, any palpitation associated with it. She denies to any fever, chills or rigors. She denies to any problem with urine and/or bowel habits. She does not have any acute arthritis involving any joint and no headache, blurred vision, numbness or tingling in the extremities. In the Emergency Room, she was noted to have an irregularly irregular heart rhythm, but the rate was controlled. An apparent CAT scan of the chest did not show any pulmonary embolism, but given the chest pain and new onset atrial fibrillation, she was advised to the telemetry unit for continuation of care. Physical Exam (per Admitting): GENERAL: On examination in the Emergency Room, she was not having any acute symptoms, but she did mention that she still has some pain in the chest. VITAL SIGNS: Temperature 36.6, pulse was 80, blood pressure 107/64, saturation 93% on room air. HEENT: Unremarkable. NECK: Supple. No JVD, no bruit. CHEST: Decreased breath sound at bases, but no wheezing and/or crackles. HEART: S1, S2, irregular with a 2/6 systolic murmur over precordium. ABDOMEN: Soft, benign, nontender, no organomegaly. Bowel sounds present. EXTREMITIES: Trace edema bilaterally. MUSCULOSKELETAL: Examination of the musculoskeletal system did show changes of severe rheumatoid arthritis involving hands and feet, but no acute arthritis in any joint. CENTRAL NERVOUS SYSTEM: She was alert, awake, oriented x3. No focal sensory and/or motor deficit appreciated. Hospital Course Patient was admitted for atypical chest pain. Cardiology was consulted. ACS r/o was negative. TTE was negative for any wall motion abnormalities. CT chest was negative for PE. This was felt most likely to be musculoskeletal, possibly related to her underlying RA. Patient was noted to have new onset A fib. Rate control was achieved with metoprolol (patient was also noted to be on low dose carvedilol and this was discontinued). Patient initially was started on a heparin drip. However she was not felt to be a good anticoagulation candidate given her underlying comorbidities and so the decision was made to continue aspirin 81mg. Patient was continued on the remainder of her home medications with the exception noted above. Patient deemed stable for discharge with Family medicine and Cardiology follow up. PE on discharge: General- awake; alert; NAD Eyes- EOMI; no scleral icterus Neck- no stridor; trachea midline Lungs- CTA bilaterally; no wheezes/crackles Heart- irregularly irregular Abdomen- soft; NTND; nBS Back- +curvature deformity Extremities- +deformities of digits Neuro- no gross focal deficits Skin- no appreciable rash or bruise . Total time spent on discharge = This includes examination of the patient, discharge planning, medication reconciliation, and communication with other providers. Discharge Instructions Discharge Instructions Admission Reason for Admission: Atrial Fibrillation, Chest Pain Discharge Discharge Diagnosis / Problem: Atrial fibrillation Discharge Goals Goal(s): Improve disease control Activity Recommendations Activity Limitations: resume your previous activity . Instructions / Follow-Up Instructions / Follow-Up Please follow up with Family Medicine Dr. Damian on September 08 at 2:10pm. You will be contacted regarding a Cardiology follow up appointment with Dr. Ocasio. Current Hospital Diet Patient's current hospital diet: AHA Diet (Heart Healthy) Discharge Diet Recommended Diet: AHA Diet (Heart Healthy) Pending Studies Studies pending at discharge: no Medical Emergencies . Who to Call and When: Medical Emergencies: If at any time you feel your situation is an emergency, please call 911 immediately. . Non-Emergent Contact Non-Emergency issues call your: Primary Care Provider . . "Provider Documentation" section prepared by Sarah Loya. VTE Core Measure Inpt VTE Proph given/why not?: Other Anticoagulation Additional Copies To Cierra Damian M.D. (MEDICAL)
[2016-09-09] MEDS ORDERED: METHOTREXATE 2.5 MG TAB PO SCH (09:00)
== END 2016-09-04 15:49 | disposition home or self-care (01) | DRG 310 ==
LOC: ENRESERVTM → ENRESERVDT → C.EDB 02:56 → C.MED 05:52
PROVIDERS: ADMIT Internal Medicine; ATTEND Internal Medicine
DX: I48.2 Chronic atrial fibrillation (principal); I10 Essential (primary) hypertension; M06.9 Rheumatoid arthritis, unspecified; E78.5 Hyperlipidemia, unspecified; R91.8 Other nonspecific abnormal finding of lung field; D50.9 Iron deficiency anemia, unspecified; Z86.718 Personal history of other venous thrombosis and embolism; Z79.82 Long term (current) use of aspirin; Z79.899 Other long term (current) drug therapy; Z85.3 Personal history of malignant neoplasm of breast; Z96.653 Presence of artificial knee joint, bilateral

== ENCOUNTER 2017-03-22 17:29 | Emergency (ER) | payer OTHER ==
[~2017-03-22] VITALS: Ht 160 cm; Wt 69.6 kg
[~2017-03-22 17:29] MED LIST changes: -CARV6.25 PO; -FLV1 PO; -LCTX PO; -LSN20 PO
[2017-03-22 17:49] VITALS: TEMP 37.5; Ht 160 cm; Wt 69.6 kg
[2017-03-22] MEDS ORDERED: SODIUM CHLORIDE 0.9% 1000ML 1,000 ML IV STA (18:40)
--- NOTE | 2017-03-22 18:44 | EMERGENCY ROOM VISIT NOTE ---
History Report prepared by Carina: Irlanda Wise Under the Supervision of: Dr. Winnie Stafford M.D. First contact with patient: 18:32 Chief Complaint: RIB PAIN Stated Complaint: RT SIDE/BACK PAIN History of Present Illness The patient is a 76 year old female who presents to the Emergency Room with complaints of constant right sided rib pain beginning this afternoon. The patient was seen at [facility] in August and there was concern for lung cancer during her workup and she was recommended to get a repeat CT in 3 months. She notes that she does not remember hearing that she needed a follow up CT scan and reports that she has not seen her PCP since August. The patient states that she has been having an ongoing cough for the last few months and today it has worsened slightly. She reports that she is having pain in her right side. The patient notes a history of rheumatoid arthritis and atrial fibrillation and states that she is on Methotrexate and Humira. She denies any fever and history of smoking Source of History: patient Onset: this afternoon Position: other (right sided rib pain) Timing: constant Associated Symptoms: + cough, No fevers Review of Systems See HPI for pertinent positives & negatives. A total of 10 systems reviewed and were otherwise negative. Past Medical & Surgical Medical Problems: (1) Atrial fibrillation (2) Chest pain (3) Dyslipidemia (4) History of DVT (deep vein thrombosis) (5) HTN (hypertension) (6) Hx Of Breast Malignancy (7) Obesity (8) Rheumatoid arthritis Surgical Problems: (1) H/O partial mastectomy (2) History of bilateral knee arthroplasty (3) History of carpal tunnel surgery Family History Cancer Heart disease Hypertension Social History Smoking Status: Never Smoker Alcohol Use: none Drug Use: none Marital Status: Housing Status: lives with family Occupation Status: retired Current/Historical Medications Scheduled Acetaminophen (Tylenol), 500 MG PO HS Adalimumab (Humira), 40 MG SQ MONTHLY Amlodipine (Norvasc), 10 MG PO DAILY Amoxicillin & Pot Clavulanate (Augmentin 875-125 mg), 875 MG PO BID Aspirin (Aspirin Chewable), 81 MG PO DAILY Cranberry-Vitamin C-Vitamin E (Cranberry), 1 CAP PO DAILY Famotidine (Pepcid), 20 MG PO QAM Ferrous Sulfate (Ferrous Sulfate), 325 MG PO DAILY Lactobacillus Acidophilus (Lactinex), 1 TAB PO DAILY Lisinopril (Zestril), 20 MG PO BID Methotrexate (Methotrexate), 10 MG PO WK Metoprolol Succinate (Toprolxl (Toprol-Xl), 100 MG PO HS Pravastatin Sodium (Pravastatin Sodium), 80 MG PO HS Allergies Coded Allergies: No Known Allergies (Verified , NONE, 03/22/17) Physical Exam Vital Signs Date Time Temp Pulse Resp B/P (MAP) Pulse Ox O2 Delivery O2 Flow Rate FiO2 03/22/17 20:33 94 20 145/74 93 03/22/17 19:45 106 03/22/17 19:42 96 24 142/65 94 03/22/17 17:49 37.5 86 16 124/68 96 Room Air Physical Exam Vital signs reviewed. General: Chronically ill appearing elderly female, in no significant distress. HEENT: No scleral icterus, PERRLA, neck supple. Atraumatic. Cardiovascular: Regular rate and rhythm, no extra sounds. Pulmonary: Crackles at the right base, normal work of breathing. Abdomen: Soft, nontender, nondistended, positive bowel sounds. Musculoskeletal: Significant arthritis changes to the joints primarily distally , no peripheral edema. Neurologic: Patient awake alert and oriented x 3 Skin: Warm, dry, no rash Medical Decision & Procedures ER Provider Diagnostic Interpretation: X-ray results as stated below per interpretation by me and the radiologist: TWO VIEW CHEST FINDINGS: PA and lateral chest radiographs are compared to study dated 01/27/2017 and correlated with chest CT dated 09/03/2016. The PA view is degraded by patient rotation. The heart is enlarged and there is atherosclerotic calcification of the thoracic aorta. The pulmonary vasculature is noncongested. Emphysema chronic interstitial thickening and nodularity is similar to previous. Parenchymal scarring is again seen in the right midlung. There is no airspace consolidation typical for pneumonia or pleural effusion. There is no pneumothorax. The bony skeletal structures are osteopenic. Degenerative change is present in the spine. IMPRESSION: 1. Cardiomegaly with no acute cardiopulmonary abnormality. 2. Chronic parenchymal changes as above. Electronically signed by: Óscar Thornton M.D. 03/22/2017 7:38 PM Dictated Date/Time: 03/22/2017 7:37 PM Laboratory Results 03/22/17 19:00 Red Blood Count 3.73, Mean Corpuscular Volume 98.1, Mean Corpuscular Hemoglobin 31.4, Mean Corpuscular Hemoglobin Concent 32.0, Mean Platelet Volume 9.2, Neutrophils (%) (Auto) 77.1, Lymphocytes (%) (Auto) 10.6, Monocytes (%) (Auto) 11.1, Eosinophils (%) (Auto) 0.7, Basophils (%) (Auto) 0.3, Neutrophils # (Auto ) 9.69, Lymphocytes # (Auto) 1.33, Monocytes # (Auto) 1.39, Eosinophils # (Auto ) 0.09, Basophils # (Auto) 0.04 03/22/17 19:00 Test 03/22/17 19:00 03/22/17 19:05 White Blood Count 12.57 K/uL (4.8-10.8) Red Blood Count 3.73 M/uL (4.2-5.4) Hemoglobin 11.7 g/dL (12.0-16.0) Hematocrit 36.6 % (37-47) Mean Corpuscular Volume 98.1 fL (80-100) Mean Corpuscular Hemoglobin 31.4 pg (25-34) Mean Corpuscular Hemoglobin Concent 32.0 g/dl (32-36) Platelet Count 342 K/uL (130-400) Mean Platelet Volume 9.2 fL (7.4-10.4) Neutrophils (%) (Auto) 77.1 % Lymphocytes (%) (Auto) 10.6 % Monocytes (%) (Auto) 11.1 % Eosinophils (%) (Auto) 0.7 % Basophils (%) (Auto) 0.3 % Neutrophils # (Auto) 9.69 K/uL (1.4-6.5) Lymphocytes # (Auto) 1.33 K/uL (1.2-3.4) Monocytes # (Auto) 1.39 K/uL (0.11-0.59) Eosinophils # (Auto) 0.09 K/uL (0-0.5) Basophils # (Auto) 0.04 K/uL (0-0.2) RDW Standard Deviation 50.8 fL (36.4-46.3) RDW Coefficient of Variation 14.3 % (11.5-14.5) Immature Granulocyte % (Auto) 0.2 % Immature Granulocyte # (Auto) 0.03 K/uL (0.00-0.02) Est Creatinine Clear Calc Drug Dose 51.3 ml/min Estimated GFR () 73.0 Estimated GFR (Non- 63.0 BUN/Creatinine Ratio 16.4 (10-20) Calcium Level 9.3 mg/dl (8.5-10.1) Total Bilirubin 0.3 mg/dl (0.2-1) Direct Bilirubin < 0.1 mg/dl (0-0.2) Aspartate Amino Transf (AST/SGOT) 24 U/L (15-37) Alanine Aminotransferase (ALT/SGPT) 19 U/L (12-78) Alkaline Phosphatase 105 U/L (45-117) Total Protein 8.1 gm/dl (6.4-8.2) Albumin 3.5 gm/dl (3.4-5.0) Bedside Hemoglobin 12.9 g/dl (12.0-16.0) Bedside Hematocrit 38 % (37-47) Bedside Sodium 139 mEq/L (135-144) Bedside Potassium 4.0 mEq/L (3.3-5.0) Bedside Chloride 102 mEq/L (101-112) Bedside Total CO2 26 mEq/l (24-31) Anion Gap 16.0 mmol/L (16-25) Bedside Blood Urea Nitrogen 17 mg/dl (7-18) Bedside Creatinine 0.8 mg/dl (0.6-1.3) Bedside Glucose (other) 120 mg/dl (70-99) Bedside Ionized Calcium (Lance) 1.18 mmol/l (1.12-1.32) Laboratory results per my review. Medications Administered Medications (Trade) Dose Ordered Sig/Abdirizak Route Start Time Stop Time Status Last Admin Dose Admin Sodium Chloride 1,000 ml @ 125 mls/hr Q8H STAT IV 03/22/17 18:40 03/22/17 21:32 DC 03/22/17 19:02 125 MLS/HR Amoxicillin/ Clavulanate Potassium (Augmentin Tab) 875 mg ONE ONCE PO 03/22/17 20:00 03/22/17 20:01 DC 03/22/17 20:22 875 MG ECG Indication: other Rate (beats per minute): 91 Rhythm: atrial fibrillation Findings: no acute ischemic change, no ectopy ED Course 183: Past medical records reviewed. The patient was evaluated in room A3. A complete history and physical examination was performed. 1840: Sodium Chloride 1000 ml @ 125 mls/hr IV. 1924: The patient had a CT scan and follow up on December 02. She had a mass like soft tissue abnormality noted and a PET CT was advised and scheduled but she did not have it done. The practice has sent her two letters and she has not seen her PCP since then. The patient has been seeing cardiology and has a follow up appointment with her a lighter captain on 04/06. 1999: Augmentin Tab 875mg PO. 2007: I reevaluated and updated the patient. 2023: Upon reevaluation, the patient appeared to have improvement of her symptoms. I discussed findings with the patient. She verbalized agreement of the treatment plan. The patient was discharged home. Medical Decision Differential diagnosis: Etiologies such as infections, reactive airway disease, pneumonia, pneumothorax , COPD, CHF, cardiac ischemia, pulmonary embolism, musculoskeletal, gastrointestinal, as well as others were entertained. This patient was evaluated and appeared to be in no significant distress. IV access was obtained and laboratory work was drawn. Patient was placed on the shelter monitor. Chest x-ray was performed and reveals chronic changes without focal lung consolidation or failure. She was hydrated with normal saline solution. Laboratory work is fairly unrevealing. Patient remained afebrile. Records from the outside facility were obtained. It does seem as though the patient had a follow-up CT of the chest in November. At the time of that CT, a follow-up pelvic CT was recommended. In review of [facility], it appears that the patient has had a PET CT ordered but for some reason it was not done. She does not have a recollection of this. At this time she will be placed on Augmentin due to her temperature of 37.5, leukocytosis and cough. She will follow-up with her primary care provider and pulmonology this week as scheduled. She will return to the ER for worsening of symptoms or any medical concerns. Medication Reconcilliation Current Medication List: was personally reviewed by me Blood Pressure Screening Patient's blood pressure: Normal blood pressure Impression Primary Impression: Lung mass Additional Impressions: Cough Atrial fibrillation Scribe Attestation The scribe's documentation has been prepared under my direction and personally reviewed by me in its entirety. I confirm that the note above accurately reflects all work, treatment, procedures, and medical decision making performed by me. Departure Information Dispostion Home / Self-Care Prescriptions Amoxicillin & Pot Clavulanate (Augmentin 875-125 mg) 1 Tab Tab 875 MG PO BID for 7 Days, #13 TAB Prov: Winnie Stafford M.D. 03/22/17 Referrals No Doctor, Assigned (PCP) Forms HOME CARE DOCUMENTATION FORM, IMPORTANT VISIT INFORMATION, WORK / SCHOOL INSTRUCTIONS Patient Instructions My [facility] Additional Instructions Diagnosis: Lung mass, cough, atrial fibrillation Continue your medications as prescribed. Augmentin 875 mg twice daily for 7 days. Tylenol 650 mg every 6 hours as needed for pain or fever. Contact your doctor tomorrow for follow-up appointment this week. You should follow through with a PET/CT as previously directed for further evaluation of the lung mass. Return to the emergency department for worsening of symptoms or any medical concerns. Problem Qualifiers
[2017-03-22] MEDS ORDERED: OPTIRAY 320 IV PRN (19:00)
[2017-03-22 19:12] LABS: BASO % 0.3 %; BASO ABS # 0.04 K/uL (0-0.2); COMPLETE YES; EOS % 0.7 %; HEMATOCRIT 36.6 % (37-47); IG% 0.2 %; LYMPH % 10.6 %; LYMPH ABS # 1.33 K/uL (1.2-3.4); MEAN CELL VOLUME 98.1 fL (80-100); MEAN CORPUSCULAR HEMOGLOBIN 31.4 pg (25-34); MEAN PLATELET VOLUME 9.2 fL (7.4-10.4); MONO % 11.1 %; NEUT % 77.1 %; PLATELET COUNT 342 K/uL (130-400); RED BLOOD COUNT 3.73 M/uL (4.2-5.4); WHITE BLOOD COUNT 12.57 K/uL (4.8-10.8)
[2017-03-22 19:18] LABS: ISTAT CREATININE 0.8 mg/dl (0.6-1.3); ISTAT HEMOGLOBIN 12.9 g/dl (12.0-16.0); ISTAT IONIZED CALCIUM 1.18 mmol/l (1.12-1.32)
[2017-03-22] MEDS ORDERED: LISI-725 PO (19:24)
[2017-03-22] MEDS ORDERED: LCTX PO (19:24)
[2017-03-22] MEDS ORDERED: ACET-1256 PO (19:24)
[2017-03-22 19:29] LABS: ALT/SGPT 19 U/L (12-78); BLOOD UREA NITROGEN 15 mg/dl (7-18); BUN/CREATININE RATIO 16.4 (10-20); CALCIUM 9.3 mg/dl (8.5-10.1); CARBON DIOXIDE 27 mmol/L (21-32); CHLORIDE 104 mmol/L (98-107); GLUCOSE 111 mg/dl (70-99); POTASSIUM 3.9 mmol/L (3.5-5.1); SODIUM 138 mmol/L (136-145)
[2017-03-22 19:34] LABS: ALKALINE PHOSPHATASE 105 U/L (45-117); AST/SGOT 24 U/L (15-37)
--- NOTE | 2017-03-22 19:40 | DIAGNOSTIC IMAGING REPORT ---
TWO VIEW CHEST CLINICAL HISTORY: Cough. FINDINGS: PA and lateral chest radiographs are compared to study dated 01/27/2017 and correlated with chest CT dated 09/03/2016. The PA view is degraded by patient rotation. The heart is enlarged and there is atherosclerotic calcification of the thoracic aorta. The pulmonary vasculature is noncongested. Emphysema chronic interstitial thickening and nodularity is similar to previous. Parenchymal scarring is again seen in the right midlung. There is no airspace consolidation typical for pneumonia or pleural effusion. There is no pneumothorax. The bony skeletal structures are osteopenic. Degenerative change is present in the spine. IMPRESSION: 1. Cardiomegaly with no acute cardiopulmonary abnormality. 2. Chronic parenchymal changes as above. Electronically signed by: Óscar Thornton M.D. 03/22/2017 7:38 PM Dictated Date/Time: 03/22/2017 7:37 PM
[2017-03-22] MEDS ORDERED: AMOXICILLIN/CLAVULANATE TAB 875 MG TAB PO ONE (20:00)
[2017-03-22] MEDS ORDERED: AMOX875T PO (20:20)
[2017-03-22 20:33] VITALS: BP 145/74; PULSE 94; O2SAT 93
== END 2017-03-22 20:34 | disposition home or self-care (01) ==
LOC: C.EDB 17:30 → C.EDA 20:34
DX: R91.8 Other nonspecific abnormal finding of lung field (principal); R05 Cough; I48.91 Unspecified atrial fibrillation; M06.9 Rheumatoid arthritis, unspecified; E78.5 Hyperlipidemia, unspecified; I10 Essential (primary) hypertension; E66.9 Obesity, unspecified; I51.7 Cardiomegaly; Z85.3 Personal history of malignant neoplasm of breast; Z86.718 Personal history of other venous thrombosis and embolism; Z79.82 Long term (current) use of aspirin; Z82.49 Family history of ischemic heart disease and other diseases of the circulatory system

== ENCOUNTER → 2017-04-07 | Outpatient (CLI) | payer OTHER ==
[~2017-04-07] MED LIST changes: +ACET-1256 PO; -ACET325T96 PO; -CLB100 PO; -DOCU-94 PO; +LCTX PO; +LISI-725 PO
--- NOTE | 2017-04-07 11:31 | DIAGNOSTIC IMAGING REPORT ---
PET/CT SKULL-THIGH CLINICAL HISTORY: Solitary pulmonary nodule COMPARISON STUDY: CT scan the chest dated 09/03/2016 FINDINGS: The patient was injected with 13.8 mCi of F 18 labeled FDG. Following the standard induction phase, PET/CT scanning is performed from the skull base the upper thigh region. Uptake within neck is felt to be physiologic. There is a 15 mm nodular lesion within the right middle lobe abutting the fissure. This is FDG avid with SUV maximum of 4.7. There is an associated nonpathologically enlarged FDG avid right hilar lymph node with an SUV maximum of 5.6. There is minimal increased FDG activity with thin the right pleura subjacent to the right breast. This likely relates to prior right breast radiation therapy. There is a stable non-FDG avid 5 mm left apical pulmonary nodule. Within the abdomen and pelvis, there is physiologic urinary tract and bowel activity. There is no pathologic hepatic activity. There is no pathologic adrenal gland activity. Incidental note is made of cholelithiasis. As a 21 mm left renal cyst. IMPRESSION: 1. 15 mm right middle lobe pulmonary nodule. This nodule remains relatively similar in size to a prior February [address] The nodule is however FDG avid with SUV maximum of 4.7. There is an associated nonpathologically enlarged FDG avid right hilar lymph node with SUV maximum of 5.6. Electronically signed by: Kirill Hadley M.D. 04/07/2017 11:30 AM Dictated Date/Time: 04/07/2017 11:18 AM
== END | disposition home or self-care (01) ==
LOC: C.PET 08:41
PROVIDERS: ATTEND Family Medicine
DX: R93.8 Abnormal findings on diagnostic imaging of other specified body structures (principal); R91.1 Solitary pulmonary nodule

== ENCOUNTER 2017-08-01 17:45 | Emergency (ER) | payer OTHER ==
[~2017-08-01] VITALS: Ht 160 cm; Wt 63.0 kg
[~2017-08-01 17:45] MED LIST changes: +METO-649 PO; -METO1TAB71 PO
[2017-08-01 17:57] VITALS: TEMP 36.9; Ht 160 cm; Wt 63.0 kg
[2017-08-01] MEDS ORDERED: FENTANYL CITRATE INJ 50 MCG/1 ML 2 ML VIAL IV STA (18:13)
[2017-08-01] MEDS ORDERED: IBUPROFEN 200 MG TAB PO STA (18:13)
--- NOTE | 2017-08-01 18:39 | EMERGENCY ROOM VISIT NOTE ---
History Report prepared by Carina: Alba Bach Under the Supervision of: Dr. Noel Swann M.D. First contact with patient: 17:59 Chief Complaint: ARM PAIN Stated Complaint: R ARM HURTING History of Present Illness The patient is a 77 year old white female with a past medical history of arthritis, HTN, high cholesterol, DVT who presents to the ED with a cc of persistent sharp right elbow pain beginning 1600 today. Positive chills. Negative fall, swelling, left arm pain, shoulder pain, chest pain, abdominal pain. The patient is right handed. She is on aspirin. She denies any recent trauma. Source of History: patient Onset: 1600 Position: elbow (right) Quality: sharp Timing: other (persistent) Associated Symptoms: + chills, No chest pain, No abdominal pain Note: Pt denies fall, swelling, left arm pain, shoulder pain. Review of Systems See HPI for pertinent positives and negatives. A total of ten systems were reviewed and were otherwise negative. Past Medical & Surgical Medical Problems: (1) Atrial fibrillation (2) Chest pain (3) Dyslipidemia (4) History of DVT (deep vein thrombosis) (5) HTN (hypertension) (6) Hx Of Breast Malignancy (7) Obesity (8) Rheumatoid arthritis Surgical Problems: (1) H/O partial mastectomy (2) History of bilateral knee arthroplasty (3) History of carpal tunnel surgery Family History Cancer Heart disease Hypertension Social History Smoking Status: Never Smoker Alcohol Use: none Drug Use: none Marital Status: Housing Status: lives with family Occupation Status: retired Current/Historical Medications Scheduled Acetaminophen (Tylenol), 500 MG PO HS Adalimumab (Humira), 40 MG SQ MONTHLY Amlodipine (Norvasc), 10 MG PO DAILY Aspirin (Aspirin Chewable), 81 MG PO DAILY Cranberry-Vitamin C-Vitamin E (Cranberry Plus Vitamin C), 1 CAP PO DAILY Famotidine (Pepcid), 20 MG PO QAM Ferrous Sulfate (Ferrous Sulfate), 325 MG PO DAILY Lactobacillus Acidophilus (Lactinex), 1 TAB PO DAILY Lisinopril (Zestril), 20 MG PO BID Methotrexate (Methotrexate), 10 MG PO WK Metoprolol Succinate (Toprolxl (Toprol-Xl), 100 MG PO HS Pravastatin Sodium (Pravastatin Sodium), 80 MG PO HS Scheduled PRN Oxycodone Immediate Rel Tab (Roxicodone Ir), 2.5 MG PO Q6H PRN for Severe Pain Allergies Coded Allergies: No Known Allergies (Verified , NONE, 08/01/17) Physical Exam Vital Signs Date Time Temp Pulse Resp B/P (MAP) Pulse Ox O2 Delivery O2 Flow Rate FiO2 08/01/17 21:00 115 20 107/56 98 Room Air 08/01/17 19:24 126 08/01/17 17:57 36.9 106 16 110/55 97 Room Air Physical Exam GENERAL: Awake, alert, well-appearing, NAD HENT: Normocephalic, atraumatic. EYES: Normal conjunctiva. Sclera non-icteric. NECK: Supple. No nuchal rigidity. FROM. RESPIRATORY: CTAB, no rhonchi, wheezing, crackles CARDIAC: RRR, no MRG ABDOMEN: Soft, NTND, BS+ MSK: Deformities of the hand consistent with arthritis. Right elbow with no significant swelling, erythema, or calor. Soft mobile rubbery masses on the posterior aspect of the elbow. Limited in her motions. NEURO: GCS 15, CN 2-12 intact, moves all 4s on command. Neuro intact to sensory and motor of MUR nerves. SKIN: No rash or jaundice noted. Medical Decision & Procedures ER Provider Diagnostic Interpretation: Xray results as stated below per my and radiologist interpretation: R ELBOW MIN 3 VIEWS ROUTINE HISTORY: 77 years-old Female R elbow pain acute right elbow pain without known injury COMPARISON: None available TECHNIQUE: 4 views of the right elbow FINDINGS: Bones appear to be mildly demineralized. Severe joint space narrowing is noted involving the trochlea olecranon articulation with suggestion of subcortical cysts or articular erosions. Prominent spurring involves the olecranon process . There is a large effusion about the elbow with suggestion of possible erosions involving the posterior olecranon. Subcortical cysts are noted about the elbow, notably within the distal humerus. No acute fracture or dislocation. IMPRESSION: 1. No acute fracture or dislocation. 2. Large joint effusion with suggestion of erosions involving the olecranon and trochlea which are suspicious for possible inflammatory arthropathy. The above report was generated using voice recognition software. It may contain grammatical, syntax or spelling errors. Electronically signed by: Mk Portillo M.D. 08/01/2017 7:00 PM Dictated Date/Time: 08/01/2017 6:56 PM Laboratory Results 08/01/17 20:22 Red Blood Count 3.67, Mean Corpuscular Volume 100.3, Mean Corpuscular Hemoglobin 33.2, Mean Corpuscular Hemoglobin Concent 33.2, Mean Platelet Volume 9.4, Neutrophils (%) (Auto) 85.7, Lymphocytes (%) (Auto) 3.9, Monocytes (%) ( Auto) 9.9, Eosinophils (%) (Auto) 0.1, Basophils (%) (Auto) 0.1, Neutrophils # ( Auto) 14.11, Lymphocytes # (Auto) 0.64, Monocytes # (Auto) 1.63, Eosinophils # ( Auto) 0.02, Basophils # (Auto) 0.02 08/01/17 20:22 Test 08/01/17 20:22 White Blood Count 16.47 K/uL (4.8-10.8) Red Blood Count 3.67 M/uL (4.2-5.4) Hemoglobin 12.2 g/dL (12.0-16.0) Hematocrit 36.8 % (37-47) Mean Corpuscular Volume 100.3 fL (80-100) Mean Corpuscular Hemoglobin 33.2 pg (25-34) Mean Corpuscular Hemoglobin Concent 33.2 g/dl (32-36) Platelet Count 285 K/uL (130-400) Mean Platelet Volume 9.4 fL (7.4-10.4) Neutrophils (%) (Auto) 85.7 % Lymphocytes (%) (Auto) 3.9 % Monocytes (%) (Auto) 9.9 % Eosinophils (%) (Auto) 0.1 % Basophils (%) (Auto) 0.1 % Neutrophils # (Auto) 14.11 K/uL (1.4-6.5) Lymphocytes # (Auto) 0.64 K/uL (1.2-3.4) Monocytes # (Auto) 1.63 K/uL (0.11-0.59) Eosinophils # (Auto) 0.02 K/uL (0-0.5) Basophils # (Auto) 0.02 K/uL (0-0.2) RDW Standard Deviation 56.4 fL (36.4-46.3) RDW Coefficient of Variation 15.6 % (11.5-14.5) Immature Granulocyte % (Auto) 0.3 % Immature Granulocyte # (Auto) 0.05 K/uL (0.00-0.02) Anion Gap 8.0 mmol/L (3-11) Est Creatinine Clear Calc Drug Dose 56.4 ml/min Estimated GFR () 87.5 Estimated GFR (Non- 75.5 BUN/Creatinine Ratio 26.6 (10-20) Calcium Level 8.9 mg/dl (8.5-10.1) Laboratory results reviewed by me Medications Administered Medications (Trade) Dose Ordered Sig/[facility] Route Start Time Stop Time Status Last Admin Dose Admin Fentanyl Citrate (Fentanyl Inj) 25 mcg NOW STAT IV 08/01/17 18:13 08/01/17 18:15 DC 08/01/17 20:05 25 MCG Ibuprofen (Advil Tab) 200 mg NOW STAT PO 08/01/17 18:13 08/01/17 18:15 DC 08/01/17 19:16 200 MG Acetaminophen (Tylenol Tab) 650 mg NOW STAT PO 08/01/17 19:46 08/01/17 19:47 DC 08/01/17 20:38 650 MG Cyclobenzaprine HCl (Flexeril Tab) 10 mg NOW STAT PO 08/01/17 19:46 08/01/17 19:47 DC 08/01/17 20:37 10 MG Tramadol HCl (Ultram Tab) 25 mg NOW STAT PO 08/01/17 19:46 08/01/17 19:47 DC 08/01/17 20:38 25 MG Oxycodone HCl (Roxicodone Immediate Rel Tab) 5 mg NOW STAT PO 08/01/17 20:27 08/01/17 20:28 DC 08/01/17 20:38 5 MG Metoprolol Succinate (Toprol Xl Tab) 100 mg NOW STAT PO 08/01/17 21:15 08/01/17 21:16 DC 08/01/17 21:37 100 MG ED Course 1806: The patient was evaluated in room B4B. A complete history and physical exam was performed. 1937: I reevaluated the patient. She is still having pain. 2112: I reevaluated the patient. Discussed results and discharge instructions: she verbalized understanding and agreement. The patient is ready for discharge. Medical Decision The patient is a 77 year old white female with a past medical history of arthritis, HTN, high cholesterol, DVT who presents to the ED with a cc of persistent sharp right elbow pain beginning 1600 today. Differential diagnosis: Etiologies such as fracture, dislocation, neurovascular compromise, compartment syndrome, soft tissue injury, as well as others were entertained. Patient was seen and evaluated at the bedside. Patient complains of some acute onset of right sided sharp elbow pain. She states fairly well localized. Patient denies any recent falls. Patient does have a significant history of rheumatoid arthritis for which she takes Humira and methotrexate. Patient is neurovascularly intact distally. Patient did have plain films completed along with blood work. Patient was also given medications. Patient does have some rubbery masses on the posterior elbow likely related to sebaceous cyst and/or lipoma. Patient is no erythema calor to suggest septic arthritis. Patient does not have polyarthritic pain. Patient's right elbow film did show an effusion and some inflammatory changes likely related to her rheumatoid arthritis. Patient was given subsequent pain medication an Charles wrap was applied , ice packs were also applied. Upon reassessment the patient states that her pain improved. Patient's heart rate was in the 110s. Of note the patient does have a history of chronic A. fib for which she takes Toprol succinate. She was given her home nighttime dose. Patient was given pain medications for home and was given follow-up with orthopedics. She was also told she may need to follow- up for possible physical therapy. Patient was agreeable to this plan of care and deemed suitable for outpatient follow-up and treatment. Patient was given strict follow-up, discharge, and return precautions. All questions were answered. Patient was deemed suitable for outpatient follow-up at this time. Patient agreed with the plan of care and was safely discharged home. Medication Reconcilliation Current Medication List: was personally reviewed by me Blood Pressure Screening Patient's blood pressure: Normal blood pressure Blood pressure disposition: Did not require urgent referral Impression Primary Impression: Arm pain, right Additional Impressions: Elbow joint effusion Rheumatoid arthritis Scribe Attestation The scribe's documentation has been prepared under my direction and personally reviewed by me in its entirety. I confirm that the note above accurately reflects all work, treatment, procedures, and medical decision making performed by me. Departure Information Dispostion Home / Self-Care Prescriptions Oxycodone Immediate Rel Tab (ROXICODONE IR) 5 Mg Tab 2.5 MG PO Q6H Y for Severe Pain, #9 TAB Prov: Noel Swann M.D. 08/01/17 Referrals Cierra Damian M.D. (MEDICAL) (PCP) Abdulaziz Rosa D.O. Martin, James S., M.D. Patient Instructions My [facility] [place], [place] Additional Instructions Please return to the emergency department if you have worsening or recurrent symptoms not amenable to at-home treatment. Please call for a follow-up appointment with her primary care physician. Please take your medications as prescribed. If you have other concerns and/or complaints please feel free to also call your primary care physician's office or return the ED for further evaluation, management, and treatment. You received narcotic or benzodiazepene medication while in the emergency room today. This is an addictive medication that may cause drowziness as well as constipation. Do not drive, operate heavy machinery, or drink alcohol under the influence of this medication. You may take tylenol 650 mg every 6 hours as needed for pain. You may also take the narcotic pain medication. Please be aware that this is an addictive medication and may cause her to be sleepy. Please only take it after taking the Tylenol and using ice packs. Please call the orthopedist for further follow -up and treatment. He may also need physical therapy. Take your medications as prescribed. You have been examined and treated today on an emergency basis only. This is not a substitute for, or an effort to provide, complete comprehensive medical care. It is impossible to recognize and treat all injuries or illnesses in a single emergency department visit. It is therefore important that you follow up closely with [facility], your PCP, and/or your specialist(s). Call as soon as possible for an appointment. Thank you for your time and consideration. I look forward to speaking with you again soon. Please don't hesitate to call us if you have any questions. Problem Qualifiers Additional Impressions: Elbow joint effusion Laterality: right Qualified Codes: M25.421 - Effusion, right elbow Rheumatoid arthritis Rheumatoid arthritis location: unspecified site Rheumatoid factor presence: unspecified presence Qualified Codes: M06.9 - Rheumatoid arthritis, unspecified
--- NOTE | 2017-08-01 19:02 | DIAGNOSTIC IMAGING REPORT ---
R ELBOW MIN 3 VIEWS ROUTINE HISTORY: 77 years-old Female R elbow pain acute right elbow pain without known injury COMPARISON: None available TECHNIQUE: 4 views of the right elbow FINDINGS: Bones appear to be mildly demineralized. Severe joint space narrowing is noted involving the trochlea olecranon articulation with suggestion of subcortical cysts or articular erosions. Prominent spurring involves the olecranon process . There is a large effusion about the elbow with suggestion of possible erosions involving the posterior olecranon. Subcortical cysts are noted about the elbow, notably within the distal humerus. No acute fracture or dislocation. IMPRESSION: 1. No acute fracture or dislocation. 2. Large joint effusion with suggestion of erosions involving the olecranon and trochlea which are suspicious for possible inflammatory arthropathy. The above report was generated using voice recognition software. It may contain grammatical, syntax or spelling errors. Electronically signed by: Mk Portillo M.D. 08/01/2017 7:00 PM Dictated Date/Time: 08/01/2017 6:56 PM
[2017-08-01] MEDS ORDERED: CRAN1CAP14 PO (19:08)
[2017-08-01] MEDS ORDERED: ACETAMINOPHEN 325 MG TAB PO STA (19:46)
[2017-08-01] MEDS ORDERED: CYCLOBENZAPRINE HCL 10 MG TAB PO STA (19:46)
[2017-08-01] MEDS ORDERED: TRAMADOL HCL 50 MG TAB PO STA (19:46)
[2017-08-01] MEDS ORDERED: OXYCODONE HCL IR 5 MG TAB (IMMEDIATE RELEASE) PO STA (20:27)
[2017-08-01 20:30] LABS: BASO % 0.1 %; BASO ABS # 0.02 K/uL (0-0.2); COMPLETE YES; EOS % 0.1 %; HEMATOCRIT 36.8 % (37-47); IG% 0.3 %; LYMPH % 3.9 %; LYMPH ABS # 0.64 K/uL (1.2-3.4); MEAN CELL VOLUME 100.3 fL (80-100); MEAN CORPUSCULAR HEMOGLOBIN 33.2 pg (25-34); MEAN CORPUSCULAR HGB CONC 33.2 g/dl (32-36); MEAN PLATELET VOLUME 9.4 fL (7.4-10.4); MONO % 9.9 %; NEUT % 85.7 %; PLATELET COUNT 285 K/uL (130-400); RED BLOOD COUNT 3.67 M/uL (4.2-5.4); WHITE BLOOD COUNT 16.47 K/uL (4.8-10.8)
[2017-08-01 20:50] LABS: BUN/CREATININE RATIO 26.6 (10-20); CALCIUM 8.9 mg/dl (8.5-10.1); CREATININE 0.77 mg/dl (0.60-1.20); POTASSIUM 3.7 mmol/L (3.5-5.1)
[2017-08-01 21:00] VITALS: BP 107/56; PULSE 115; O2SAT 98
[2017-08-01] MEDS ORDERED: METOPROLOL SUCC 50MG EXT REL TAB PO STA (21:15)
[2017-08-01] MEDS ORDERED: OXYC1TAB3 PO (21:23)
== END 2017-08-01 21:45 | disposition home or self-care (01) ==
LOC: C.EDB 17:45
DX: M25.521 Pain in right elbow (principal); M25.421 Effusion, right elbow; M06.9 Rheumatoid arthritis, unspecified; I10 Essential (primary) hypertension; E78.00 Pure hypercholesterolemia, unspecified; Z86.718 Personal history of other venous thrombosis and embolism; I48.91 Unspecified atrial fibrillation; E78.5 Hyperlipidemia, unspecified; Z85.3 Personal history of malignant neoplasm of breast; E66.9 Obesity, unspecified; Z96.653 Presence of artificial knee joint, bilateral; Z80.9 Family history of malignant neoplasm, unspecified; Z82.49 Family history of ischemic heart disease and other diseases of the circulatory system; Z79.82 Long term (current) use of aspirin; Z79.899 Other long term (current) drug therapy

== ENCOUNTER 2019-09-11 16:58 | Inpatient (IN) ==
[2019-09-11 18:26] LABS: Basophils # (auto) 0.02 K/uL (0-0.2); Basophils % (auto) 0.2 %; Eosinophils # (auto) 0.01 K/uL (0-0.5); Eosinophils % (auto) 0.1 %; Hematocrit (blood only) 39.2 % (37-47); Hemoglobin 12.9 g/dL (12.0-16.0); Immature Granulocytes # (auto) 0.03 K/uL (0.00-0.02); Immature Granulocytes % (auto) 0.3 %; Lymphocytes # (auto) 0.65 K/uL (1.2-3.4); Lymphocytes % (auto) 6.2 %; Mean Corpuscular Hemoglobin 33.1 pg (25-34); Mean Corpuscular Hgb Conc 32.9 g/dL (32-36); Mean Corpuscular Volume 100.5 fL (80-100); Mean Platelet Volume 10.3 fL (7.4-10.4); Monocytes # (auto) 1.31 K/uL (0.11-0.59); Monocytes % (auto) 12.4 %; Neutrophils # (auto) 8.54 K/uL (1.4-6.5); Neutrophils % (auto) 80.8 %; Platelet Count 160 K/uL (130-400); RDW Coefficient of Variation 14.4 % (11.5-14.5); White Blood Count 10.56 K/uL (4.8-10.8)
[2019-09-11 18:40] LABS: INR 1.1 (0.9-1.1); Prothrombin Time 10.9 Seconds (9.0-12.0)
[2019-09-11 18:51] LABS: Alanine Aminotransferase 13 U/L (12-78); Albumin Level 3.7 gm/dl (3.4-5.0); BUN Creatinine Ratio 17.8 (10-20); Blood Urea Nitrogen 15 mg/dl (7-18); Calcium 9.1 mg/dl (8.5-10.1); Carbon Dioxide 28 mmol/L (21-32); Chloride 99 mmol/L (98-107); Glucose 108 mg/dl (70-99); Sodium 134 mmol/L (136-145)
[2019-09-11 19:02] LABS: Albumin Globulin Ratio 0.8 (0.9-2); Alkaline Phosphatase 75 U/L (45-117); Bilirubin,Total 0.7 mg/dl (0.2-1); Globulin 4.8 gm/dl (2.5-4.0); Total Protein 8.5 gm/dl (6.4-8.2); Troponin I < 0.015 ng/ml (0-0.045)
--- NOTE | 2019-09-11 19:20 | CT Scan Report ---
CT head/brain wo con CT DOSE: 1277.12 mGycm HISTORY: Mental status change transient ams TECHNIQUE: Multiaxial CT images of the head were performed without the use of intravenous contrast. A dose lowering technique was utilized adhering to the principles of ALARA. Comparison: 03/14/2014 Findings: The paranasal sinuses and mastoid air cells are clear. The calvarium and skull base are int act. The ventricles and sulci are within normal limits. There is no mass, hematoma, midline shift, or acute infarct. 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 No acute intracranial hemorrhage. Impression: No acute intracranial abnormality. Chronic and age-related change. ACT 112: Negative or not required by law. The above report was generated using voice recognition software. It may contain grammatical, syntax or spelling errors. Electronically signed by: Sathish Quispe M.D. 09/11/2019 7:19 PM
[2019-09-11] MEDS ORDERED: FUROSEMIDE 40 MG/4 ML VIAL IV STA (19:42)
[2019-09-11] MEDS ORDERED: ONDANSETRON INJ 2 MG/ML 2 ML VIAL IV STA (20:29)
--- NOTE | 2019-09-11 21:33 | History & Physical Report ---
Date of Service September 11, 2019 Assessment & Plan (1) Acute bronchitis: 79-year-old female with history of rheumatoid arthritis, on methotrexate and Humira, chronic atrial fibrillation, hypertension, Presenting with cough and shortness of breath times few days. Acute bronchitis In the setting of rheumatoid arthritis, on Humira and methotrexate --Chest x-ray no signs of pneumonia Flu PCR: Negative --Blood cultures, sputum cultures, urine cultures obtained --Start doxycycline IV 100 mg every 12 hours, Xopenex every 6 hours, gentle i.v. NSS --Will need to hold Humira and methotrexate until this episode resolves Dizziness --Observed late this afternoon, patient was given Lasix 20 mg IV at the ER earlier today --Suspect component of orthostatic hypotension, she is clinically dehydrated -- start gentle IV NSS --Hold usual amlodipine and lisinopril until blood pressure stabilizes Rheumatoid arthritis --No signs of exacerbation --Hold Humira, methotrexate Chronic atrial fibrillation --Rate controlled, continue metoprolol and aspirin Hypertension --May have had episode of hypotension earlier this afternoon secondary to poor oral intake and administration of IV Lasix --Hold usual amlodipine and lisinopril, continue metoprolol, monitor blood pressure GERD --Continue Pepcid DVT prophylaxis Lovenox subcutaneous daily CODE STATUS Full code as per patient Disposition PT OT evaluation Patient lives at home with family Case discussed with patient and her children at the bedside detail and at length All questions answered The understanding, comfortable, agreeable with the plan of care Dr. Socorro Connor will be the attending physician for the patient starting tomorrow September 12, 2019 History of Present Illness 79-year-old female with history of rheumatoid arthritis, on methotrexate and Humira, chronic atrial fibrillation, hypertension, presenting with Cough and shortness of breath times few days. Patient reports for the past few days, she has been having productive cough and shortness of breath. Denies having any fevers or chills, arthralgias, headache, nominal pain, problems urination or bowel movement. She was evaluated at the ER earlier today for shortness of breath and cough. She was given Lasix 20 mg IV for possible pulmonary edema. She was discharged to home with Lasix 20 mg p.o. daily, Tessalon Perles, and Afrin sprays. At home, the patient states that she continues to have cough and some shortness of breath. As per patient's family, upon waking up after her nap, the patient got up, and felt dizzy as if she was going to pass out and was noted to be slightly disoriented. She was then brought again to the ER for evaluation. On my exam, the patient is awake, alert, oriented x3, answers all questions appropriately. She does appear somewhat weak. She confirms that she still has active cough and some shortness of breath. She reports having urinary incontinence today after the Lasix. No other symptoms Primary Care Provider: Aniyah Lujan DO Allergies Allergy/AdvReac Type Severity Reaction Status Date / Time No Known Allergies Allergy NONE Verified 09/11/19 10:52 Home Medications Home Medications Medication Instructions Recorded Confirmed Type acetaminophen [Tylenol Extra 1,000 mg PO HS PRN 09/11/19 09/11/19 History Strength] adalimumab [Humira Pen] 40 mg SUBCUT MONTHLY 09/11/19 09/11/19 History alendronate 70 mg PO DAILY 09/11/19 09/11/19 History amlodipine 10 mg PO DAILY 09/11/19 09/11/19 History aspirin [Aspirin Low Dose] 81 mg PO DAILY 09/11/19 09/11/19 History benzonatate [Tessalon Perles] 200 mg PO TID PRN #20 cap 09/11/19 09/11/19 Rx cranberry 500 mg PO BID 09/11/19 09/11/19 History famotidine 20 mg PO DAILY 09/11/19 09/11/19 History ferrous sulfate [iron] 325 mg PO DAILY 09/11/19 09/11/19 History folic acid 1 mg PO DAILY 09/11/19 09/11/19 History furosemide [Lasix] 20 mg PO DAILY #7 tab 09/11/19 09/11/19 Rx lisinopril 20 mg PO DAILY 09/11/19 09/11/19 History methotrexate sodium 10 mg PO WK 09/11/19 09/11/19 History metoprolol succinate 200 mg PO DAILY 09/11/19 09/11/19 History fagklqcj-[id number]-NZ-lycopen-lutein 1 tab PO DAILY 09/11/19 09/11/19 History [Centrum Silver] pravastatin 80 mg PO DAILY 09/11/19 09/11/19 History Past Med/Surg History Social History Feels Safe at Home: Yes Smoking Status: Never smoker Review of Systems Review of Systems: All systems reviewed & are unremarkable except as noted in HPI & below Physical Exam Physical Exam: General- oriented x 3, not in distress, speaks in sentences with no effort or accessory muscle use Positive somewhat weak Head- atraumatic Eyes- PERRL, EOMI, anicteric ENT- oropharynx clear Positive dry oral mucosa Neck- supple, no JVD, no adenopathy, no thyromegaly; carotids +2/2, no bruits appreciated Lungs-clear breath sounds bilaterally, no crackles or wheezing Heart- normal rate, irregularly irregular rhythm; no murmur, no gallop, no rub appreciated Abdomen- normal bowel sounds, nondistended, soft, nontender, no masses or hepatosplenomegaly Extremities- no pretibial edema, no calf tenderness; peripheral pulses intact Neuro- alert, oriented x 3; CN 2-12 grossly intact; motor 5/5 bilaterally;sensation 100% on all extremities; no other gross focal neurologic deficits Skin- warm & dry Results & Data Vital Signs (Past 12 Hours) Vital Signs Temp Pulse Pulse Resp BP BP Pulse Ox 09/11/19 20:08 89 18 129/73 92 09/11/19 18:26 92 H 24 122/72 95 09/11/19 17:03 37.0 C 96 H 20 135/77 96
--- NOTE | 2019-09-11 23:48 | Emergency Department Note ---
Entered by Rio Gonsalez acting as a scribe for History of Present Illness General Chief complaint: Respiratory Problems Stated complaint: fluid around lungs, respiratory issues, near synco Time Seen by Provider: 09/11/19 17:24 Source: patient and family (son) History of Present Illness Onset (ago): hour(s) (prior to arrival) Location: head (confusion) Pain Consistency: + other (episode) Quality: + other ("in another world") Associated symptoms: + denies other symptoms (leg swelling, and difficulty moving arms and legs), + cough, + fever/chills (fever), + shortness of breath and + other (congestion, runny nose); no chest pain Treatments prior to arrival: none The patient is a 79 year old F who presents to the Emergency Room with complaints of an episode of confusion that occurred prior to arrival. The patient states that she was in the ED, earlier today, for complaints of coughing, congestion, a fever, and a runny nose. She notes that these symptoms started a couple of days ago. She states that she received medications in the ED and was discharged home. She adds that at home, she decided to take a nap. She notes that when she woke up, she was confused and she felt like she was in another world. She adds that this episode lasted for 1 hour. The patients son states that the patient was in her bedroom when this event occurred, so he did not see it happen. He notes that he talked to the patient when she came out of her bedroom. He adds that the patient told him that she almost passed out and may have urinated on herself. He denies that the patient was saying weird things. The patient states that this has never happened before. She notes that she is currently experiencing some shortness of breath. The patient denies experiencing chest pain, leg swelling, and difficulty moving her arms and legs. She also denies any recent falls. She notes that she has been eating and drinking okay, recently. She states that she is feeling a little better now. She denies a history of A Fib. She also denies being on any blood thinning medications. Home Medications Home Medications Medication Instructions Recorded Confirmed Type acetaminophen [Tylenol Extra 1,000 mg PO HS PRN 09/11/19 09/11/19 History Strength] adalimumab [Humira Pen] 40 mg SUBCUT MONTHLY 09/11/19 09/11/19 History alendronate 70 mg PO DAILY 09/11/19 09/11/19 History amlodipine 10 mg PO DAILY 09/11/19 09/11/19 History aspirin [Aspirin Low Dose] 81 mg PO DAILY 09/11/19 09/11/19 History benzonatate [Tessalon Perles] 200 mg PO TID PRN #20 cap 09/11/19 09/11/19 Rx cranberry 500 mg PO BID 09/11/19 09/11/19 History famotidine 20 mg PO DAILY 09/11/19 09/11/19 History ferrous sulfate [iron] 325 mg PO DAILY 09/11/19 09/11/19 History folic acid 1 mg PO DAILY 09/11/19 09/11/19 History furosemide [Lasix] 20 mg PO DAILY #7 tab 09/11/19 09/11/19 Rx lisinopril 20 mg PO DAILY 09/11/19 09/11/19 History methotrexate sodium 10 mg PO WK 09/11/19 09/11/19 History metoprolol succinate 200 mg PO DAILY 09/11/19 09/11/19 History mtyiivyn-vvk-RQ-lycopen-lutein 1 tab PO DAILY 09/11/19 09/11/19 History [Centrum Silver] pravastatin 80 mg PO DAILY 09/11/19 09/11/19 History Allergies Allergy/AdvReac Type Severity Reaction Status Date / Time No Known Allergies Allergy NONE Verified 09/11/19 10:52 Past Med/Surg History Social History Feels Safe at Home: Yes Smoking Status: Never smoker Review of Systems See HPI for pertinent positives & negatives. and A total of 10 systems reviewed and were otherwise negative Physical Exam Vital Signs Vital Signs - 24 hr 09/11/19 17:03 09/11/19 18:26 09/11/19 20:08 Temperature 37.0 C Temperature Source Oral Pulse Rate 96 H Pulse Rate [Right Finger] 92 H 89 Pulse Rhythm Regular Pulse Strength Normal Respiratory Rate 20 24 18 Respiratory Effort / Characteristics Non-Labored Non-Labored Spontaneous Respiratory Depth Normal Normal Blood Pressure 135/77 Blood Pressure [Right Arm] 122/72 129/73 Blood Pressure Mean 96 Blood Pressure Mean [Right Arm] 88 91 Blood Pressure Position Sitting Blood Pressure Position [Right Arm] Pulse Oximetry 96 95 92 Oxygen Delivery Method Room Air Room Air Room Air Sepsis Recent Fever Within 48 Hours No Sepsis Action Taken by Nursing No Action Required 09/11/19 21:40 09/11/19 23:25 Temperature Temperature Source Pulse Rate Pulse Rate [Right Finger] 79 80 Pulse Rhythm Pulse Strength Respiratory Rate 18 18 Respiratory Effort / Characteristics Non-Labored Spontaneous Non-Labored Spontaneous Respiratory Depth Normal Normal Blood Pressure Blood Pressure [Right Arm] 124/68 129/78 Blood Pressure Mean Blood Pressure Mean [Right Arm] 86 95 Blood Pressure Position Blood Pressure Position [Right Arm] Sitting Pulse Oximetry 93 94 Oxygen Delivery Method Room Air Room Air Sepsis Recent Fever Within 48 Hours Sepsis Action Taken by Nursing GENERAL: Awake, alert, in no distress HENT: Normocephalic, atraumatic. EYES: Normal conjunctiva. Sclera non-icteric. NECK: Supple. No nuchal rigidity. RESPIRATORY: Diminished lung bases. No wheezes. Normal respiratory effort. CARDIAC: Normal rate. Irregular rhythm. Extremities warm and well perfused. GI: Soft, non-distended. No tenderness to palpation. MUSCULOSKELETAL: Atraumatic. Chest examination reveals no tenderness. LOWER EXTREMITIES: Calves are equal size bilaterally and non-tender. Trace pedal edema. NEURO: Normal sensorium. No sensory or motor deficits noted. No facial droop. no slurred speech. SKIN: Warm and dry. No rash or jaundice noted. Course Course 1728: The patient was evaluated in room C4. A complete history and physical exam was performed. 1944: I reviewed the patient's case with Dr. Baljinder Mancia, [facility] Hospitalist. He will evaluate the patient for further management. Administered Medications Discontinued Medications Furosemide (Lasix) 20 mg IV NOW STA Stop: 09/11/19 19:43 Last Admin: 09/11/19 19:54 Dose: 20 mg Documented by: [id number] Ondansetron HCl (Zofran) 4 mg IV NOW STA Stop: 09/11/19 20:30 Last Admin: 09/11/19 20:41 Dose: 4 mg Documented by: [id number] Medical Decision Making Differential Diagnosis Differential Diagnosis includes but is not limited to dehydration, stroke, anemia, hypoglycemia, hyponatremia, hypernatremia, urinary tract infection, pneumonia, bronchitis, sepsis, gastroenteritis, additional abdominal pathology, metabolic abnormalities and infections. Medical Records Attestation: I reviewed the patient's medical records. Home Medications Current Medication List: was personally reviewed by me Laboratory Data Attestation: I reviewed the patient's lab results. Result diagrams: 09/11/19 18:14 09/11/19 18:14 Lab Results 09/11/19 09/11/19 09/11/19 Range/Units 18:14 18:14 18:14 WBC 10.56 (4.8-10.8) K/uL RBC 3.90 L (4.2-5.4) M/uL Hgb 12.9 (12.0-16.0) g/dL Hct 39.2 (37-47) % MCV 100.5 H (80-100) fL MCH 33.1 (25-34) pg MCHC 32.9 (32-36) g/dL RDW Std Deviation 51.0 H (36.4-46.3) fL RDW Coeff of Ezra 14.4 (11.5-14.5) % Plt Count 160 (130-400) K/uL MPV 10.3 (7.4-10.4) fL Immature Gran % (Auto) 0.3 % Neut % (Auto) 80.8 % Lymph % (Auto) 6.2 % [place] % (Auto) 12.4 % Eos % (Auto) 0.1 % Baso % (Auto) 0.2 % Immature Gran # (Auto) 0.03 H (0.00-0.02) K/uL Neut # (Auto) 8.54 H (1.4-6.5) K/uL Lymph # (Auto) 0.65 L (1.2-3.4) K/uL [place] # (Auto) 1.31 H (0.11-0.59) K/uL Eos # (Auto) 0.01 (0-0.5) K/uL Baso # (Auto) 0.02 (0-0.2) K/uL PT 10.9 (9.0-12.0) Seconds INR 1.1 (0.9-1.1) Sodium 134 L (136-145) mmol/L Potassium (3.5-5.1) mmol/L Chloride 99 (98-107) mmol/L Carbon Dioxide 28 (21-32) mmol/L Anion Gap 7.0 (3-11) BUN 15 (7-18) mg/dl Creatinine 0.82 (0.6-1.2) mg/dl Est Cr Clr Drug Dosing Not Reportable Est GFR ( Amer) 80.0 Est GFR (Non-Af Amer) 69.0 BUN/Creatinine Ratio 17.8 (10-20) Glucose 108 H (70-99) mg/dl Calcium 9.1 (8.5-10.1) mg/dl Magnesium (1.8-2.4) mg/dl Total Bilirubin 0.7 (0.2-1) mg/dl AST (15-37) U/L ALT 13 (12-78) U/L Alkaline Phosphatase 75 (45-117) U/L Troponin I < 0.015 (0-0.045) ng/ml Total Protein 8.5 H (6.4-8.2) gm/dl Albumin 3.7 (3.4-5.0) gm/dl Globulin 4.8 H (2.5-4.0) gm/dl Albumin/Globulin Ratio 0.8 L (0.9-2) TSH 1.130 (0.300-4.500) uIu/ml Imaging Data Radiologist's Impression: Radiology results as stated below per my review and the radiologist's interpretation: CT head/brain wo con CT DOSE: 1277.12 mGycm HISTORY: Mental status change transient ams TECHNIQUE: Multiaxial CT images of the head were performed without the use of intravenous contrast. A dose lowering technique was utilized adhering to the principles of ALARA. Comparison: 03/14/2014 Findings: The paranasal sinuses and mastoid air cells are clear. The calvarium and skull base are intact. The ventricles and sulci are within normal limits. There is no mass, hematoma, midline shift, or acute infarct. 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 No acute intracranial hemorrhage. Impression: No acute intracranial abnormality. Chronic and age-related change. ACT 112: Negative or not required by law. The above report was generated using voice recognition software. It may contain grammatical, syntax or spelling errors. Electronically signed by: Sathish Quispe M.D. 09/11/2019 7:19 PM ECG Data Attestation: I personally reviewed and interpreted this ECG as follows: Indication: + SOB/dyspnea Rate (beats per minute): 95 Rhythm: + atrial fibrillation ECG Intervals/blocks: + Normal QRS ECG ST segments: no ST elevation Comparison ECG Date: from (09/11/19, earlier today) Change: no significant change Blood Pressure Blood Pressure Findings: Elevated blood pressure Blood Pressure Disposition: further management by hospitalist HAN Narrative Patient is a 79-year-old female with a history of hypertension, atrial fibril lation, DVT presenting today after assessment here earlier in the morning with a cough and some shortness of breath. There was a fluid overload at time given some Lasix as well as Tessalon Perles and Afrin to help with any nasal congestion possible URI overlying. States she was at home and had some trouble sleeping and when she got up almost passed out. Re-presents here for reevaluation. States that for about an hour after she got up she not only almost passed out but felt out of it and very confused. Denies pain. Seems at baseline now. Feels concerned about going home given this episode. Repeat EKG basic labs and a CT the head was complete. Troponin still negative. Given evening dose of lasix. Doubt this is acute CVA but CT of the head was complete without acute new findings. Discussed with the [facility] hospitalist for further management and evaluation. Impression & Plan Near syncope, Transient confusion, Fluid overload, URI (upper respiratory infection), Cough Discharge Plan Visit Data Chief Complaint: Respiratory Problems Stated Complaint: fluid around lungs, respiratory issues, near synco ED Provider: Johny Ash Discharge Problem: Near syncope, Transient confusion, Fluid overload, URI (upper respiratory infection), Cough Patient Disposition: Admitted As Inpatient Discharge Instructions Interventions: ED Discharge Assessment Last Done: 09/11/19 23:43 Forms Stand Alone Forms: My [facility] Prescriptions Prescriptions: No Action acetaminophen [Tylenol Extra Strength] 500 mg Tablet 1,000 mg PO HS PRN (Reason: Pain) RF: 0 methotrexate sodium 2.5 mg tablet 10 mg PO WK RF: 0 ferrous sulfate [iron] 325 mg (65 mg iron) Tablet 325 mg PO DAILY RF: 0 folic acid 1 mg Tablet 1 mg PO DAILY RF: 0 cranberry 500 mg Capsule 500 mg PO BID RF: 0 Centrum Silver 0.4-300-250 mg-mcg-mcg Tablet 1 tab PO DAILY RF: 0 Humira Pen 40 mg/0.8 mL pen injector kit 40 mg SUBCUT MONTHLY RF: 0 metoprolol succinate 200 mg tablet extended release 24 hr 200 mg PO DAILY RF: 0 lisinopril 20 mg tablet 20 mg PO DAILY RF: 0 alendronate 70 mg tablet 70 mg PO DAILY RF: 0 aspirin [Aspirin Low Dose] 81 mg Tablet,Delayed Release (Dr/Ec) 81 mg PO DAILY RF: 0 famotidine 20 mg tablet 20 mg PO DAILY RF: 0 pravastatin 80 mg tablet 80 mg PO DAILY RF: 0 amlodipine 10 mg tablet 10 mg PO DAILY RF: 0 furosemide [Lasix] 20 mg tablet 20 mg PO DAILY Qty: 7 RF: 0 benzonatate [Tessalon Perles] 100 mg capsule 200 mg PO TID PRN (Reason: cough) Qty: 20 RF: 0 Referrals Referrals: Aniyah Lujan DO [Primary Care Provider] - Discharge Problem: Fluid overload Qualifiers: Hypervolemia type: unspecified Qualified Code(s): E87.70 - Fluid overload, unspecified URI (upper respiratory infection) Qualifiers: URI type: unspecified URI Qualified Code(s): J06.9 - Acute upper respiratory infection, unspecified The scribe's documentation has been prepared under my direction and personally reviewed by me in its entirety. I confirm that the note above accurately reflects all work, treatment, procedures, and medical decision making performed by me.
[2019-09-12] MEDS ORDERED: SODIUM CHLORIDE 0.9% 1000ML 1,000 ML IV SCH (00:25)
[2019-09-12] MEDS ORDERED: PATIENT'S HEIGHT AND/OR WEIGHT NEEDED SCH (00:45)
[2019-09-12] MEDS: LEVALBUTEROL 1.25MG/0.5ML NEB NEB SCH ×4 (01:07→18:54)
[2019-09-12 01:16] LABS: Calcium 8.8 mg/dl (8.5-10.1); Creatinine Clr Calc Pharmacy 43.3 ml/min; Est GFR (African American) 75.5; Est GFR (Non-African American) 65.2; Potassium 3.3 mmol/L (3.5-5.1)
[2019-09-12] MEDS: DOXYCYCLINE HYCLATE 100 MG in DEXTROSE 5% 100 ML IV SCH ×2 (01:38→12:44)
[2019-09-12] MEDS ORDERED: POTASSIUM CHLORIDE 20 MEQ TABCR PO ONE (01:53)
[2019-09-12 07:12] LABS: BUN Creatinine Ratio 22.4 (10-20); Calcium 8.4 mg/dl (8.5-10.1); Creatinine Clr Calc Pharmacy 44.4 ml/min; Est GFR (African American) 77.7; Potassium 3.7 mmol/L (3.5-5.1)
[2019-09-12] MEDS: ENOXAPARIN INJ 40 MG/0.4 ML SYR SQ SCH (08:54)
[2019-09-12] MEDS: METOPROLOL SUCC 50MG EXT REL TAB PO SCH (08:54)
[2019-09-12] MEDS: ASPIRIN 81 MG ECTAB PO SCH (08:54)
[2019-09-12] MEDS: FAMOTIDINE 20 MG TAB PO SCH (08:54)
[2019-09-12] MEDS: BENZONATATE 100 MG CAPSULE PO PRN (10:07)
--- NOTE | 2019-09-12 11:22 | Hospitalist Progress Note ---
Date of Service September 12, 2019 Assessment & Plan (1) Acute bronchitis: Presenting on admission with productive cough and shortness of breath for the last few days Chest x-ray showed no signs of pneumonia Influenza PCR negative Febrile this morning with Temp 38.2 Continue IV doxycycline today Will check blood cx Continue Tessalon perle Continue to hold Humira and Methotrexate Continue monitor Dizziness Possible related to hypovolemia due to poor oral intake and diuresis Will not give additional lasix Continue gentle IVF Continue to hold BP med Rheumatoid arthritis No signs of exacerbation Hold Humira, methotrexate due to acute illness Chronic atrial fibrillation Rate controlled continue metoprolol and aspirin Hypertension BP in the low side Continue gentle IV fluid Continue to hold amlodipine and lisinopril Will continue metoprolol with parameter Will monitor BP closely GERD Continue Pepcid DVT prophylaxis Lovenox subcutaneous daily CODE STATUS Full code Disposition PT OT evaluation Patient lives at home with family Subjective Pt was seen and examined Lying in bed with no distress with son at bedside Pt said that she continues to have productive cough She denies any chest pain, palpitation, dizziness and SOB Physical Exam Physical Exam: General- No acute distress Head- atraumatic Eyes- PERRL, EOMI, ENT- oropharynx clear Neck- supple, no JVD Lungs- No wheezing Heart- no murmur Abdomen- normal bowel sounds, soft, nontender Extremities- no calf tenderness Neuro- alert, oriented x 3; PERRL, EOMI; no facial palsy; no dysarthria Skin- warm & dry Results & Data Vital Signs (Past 12 Hours) Vital Signs Temp Pulse Pulse Resp BP BP Pulse Ox 09/12/19 09:07 83 09/12/19 07:23 95 H 18 90 09/12/19 07:07 37.5 C 91 H 18 147/88 H 92 09/12/19 04:13 37 C 86 18 101/65 90 09/12/19 01:09 94 H 14 92 09/12/19 00:36 36.9 C 74 18 124/75 92 09/12/19 00:30 78 09/11/19 23:25 80 18 129/78 94
[2019-09-12] MEDS ORDERED: ACETAMINOPHEN 325 MG TAB PO PRN (11:44)
--- NOTE | 2019-09-12 21:24 | Electrocardiogram Report ---
Test Reason : Blood Pressure : / mmHG Vent. Rate : 095 BPM Atrial Rate : 101 BPM P-R Int : 000 ms QRS Dur : 080 ms QT Int : 358 ms P-R-T Axes : 000 065 115 degrees QTc Int : 449 ms Poor data quality, interpretation may be adversely affected Atrial fibrillation Nonspecific ST and T wave abnormality Abnormal ECG When compared with ECG of 11-SEP-2019 09:39, No significant change Confirmed by Papo Medeiros ([id number]) on 09/12/2019 9:24:19 PM Referred By: REFERRED SELF Confirmed By:Papo Medeiros
[2019-09-13] MEDS: DOXYCYCLINE HYCLATE 100 MG in DEXTROSE 5% 100 ML IV SCH ×2 (00:06→12:31)
[2019-09-13] MEDS: LEVALBUTEROL HCL 1.25 MG/3 ML NEB NEB SCH ×4 (00:17→19:24)
[2019-09-13 07:27] LABS: BUN Creatinine Ratio 27.7 (10-20); Calcium 8.2 mg/dl (8.5-10.1); Creatinine Clr Calc Pharmacy 57.3 ml/min; Est GFR (African American) 99.3; Est GFR (Non-African American) 85.6; Potassium 3.7 mmol/L (3.5-5.1)
[2019-09-13] MEDS: ASPIRIN 81 MG ECTAB PO SCH (08:23)
[2019-09-13] MEDS: FAMOTIDINE 20 MG TAB PO SCH (08:23)
[2019-09-13] MEDS: ENOXAPARIN INJ 40 MG/0.4 ML SYR SQ SCH (08:24)
[2019-09-13] MEDS: METOPROLOL SUCC 50MG EXT REL TAB PO SCH (08:24)
--- NOTE | 2019-09-13 14:58 | Hospitalist Progress Note ---
Date of Service September 13, 2019 Assessment & Plan (1) Acute bronchitis: Presenting on admission with productive cough and shortness of breath for the last few days Chest x-ray showed no signs of pneumonia Influenza PCR negative Febrile this morning with Temp 38.2 Continue IV doxycycline today Will check blood cx-still pending Continue Marvin crabtree Continue to hold Humira and Methotrexate Clinically a little bit better We will continue IV doxycycline for now Dizziness Possible related to hypovolemia due to poor oral intake and diuresis Will not give additional lasix Continue gentle IVF Continue to hold BP med except beta-noel Patient remains the lower side PT and OT evaluation Rheumatoid arthritis No signs of exacerbation Hold Humira, methotrexate due to acute illness Will resume Humira and methotrexate on discharge Chronic atrial fibrillation Rate controlled continue metoprolol and aspirin Denies any cardiac symptoms Hypertension BP in the low side Continue gentle IV fluid Continue to hold amlodipine and lisinopril Will continue metoprolol with parameter Will monitor BP closely-remains on the lower side GERD Continue Pepcid DVT prophylaxis Lovenox subcutaneous daily CODE STATUS Full code Disposition PT OT evaluation Patient lives at home with family Subjective 09/13/2019 The patient was seen and examined in the medical floor Has been feeling ill a bit better today Only complains some cough but no chest pain and/or shortness of breath Review of Systems Review of Systems: All systems reviewed and are unremarkable except as noted below Respiratory: + cough; no dyspnea, no hemoptysis and no wheezing Physical Exam Physical Exam: Lying in bed comfortably Constitutional: + thin Eyes: PERRL, conjunctivae normal, anicteric sclerae ENMT: external ear and nose normal, oropharynx normal Neck: trachea midline, no thyromegaly Respiratory: normal respiratory effort; no respiratory distress Auscultation: + diminished lung sounds and + wheezes (Occasional wheezing) Cardiovascular: Rate/Rhythm: regular rate and regular rhythm Heart Sounds: no murmur Gastrointestinal (Abdomen): Inspection/Auscultation: abdomen normal to inspection and normal bowel sounds Musculoskeletal: No acute arthritis in any joints Neurologic: Alert, awake and oriented x3 Results & Data Vital Signs (Past 12 Hours) Vital Signs Temp Pulse Resp BP Pulse Ox 09/13/19 13:33 94 09/13/19 08:16 36.5 C 84 18 107/69 94 09/13/19 07:44 84 14 93 Laboratory Results [facility] 09/13/19 06:34 Sodium 135 L Potassium 3.7 Chloride 104 Carbon Dioxide 25 BUN 18 Creatinine 0.65 Glucose 86 Calcium 8.2 L Medications Administered Current Inpatient Medications Acetaminophen (Tylenol) 650 mg PO Q6H PRN PRN Reason: fever/pain Stop: 10/12/19 11:43 Last Admin: 09/12/19 12:01 Dose: 650 mg Documented by: Aspirin (Ecotrin Ectab) 81 mg PO DAILY [facility] Stop: 10/12/19 08:59 Last Admin: 09/13/19 08:23 Dose: 81 mg Documented by: Benzonatate (Tessalon Perle) 100 mg PO TID PRN PRN Reason: cough Stop: 10/12/19 13:59 Last Admin: 09/12/19 10:07 Dose: 100 mg Documented by: Enoxaparin Sodium (Lovenox) 40 mg SQ Q24H [facility] Stop: 10/12/19 08:59 Last Admin: 09/13/19 08:24 Dose: 40 mg Documented by: Famotidine (Pepcid) 20 mg PO DAILY [facility] Stop: 10/12/19 08:59 Last Admin: 09/13/19 08:23 Dose: 20 mg Documented by: Doxycycline Hyclate 100 mg/ (Dextrose) 110 mls @ 50 mls/hr IV Q12H [facility] Stop: 09/19/19 00:59 Last Infusion: 09/13/19 14:37 Dose: Infused Documented by: Levalbuterol HCl (Xopenex 1.25mg/3ml Neb) 1.25 mg NEB Q6R [facility] Stop: 10/13/19 00:59 Last Admin: 09/13/19 13:32 Dose: 1.25 mg Documented by: Metoprolol Succinate (Toprol Xl) 200 mg PO DAILY [facility] Stop: 10/12/19 08:59 Last Admin: 09/13/19 08:24 Dose: 200 mg Documented by:
[2019-09-13] MEDS: BENZONATATE 100 MG CAPSULE PO PRN (21:03)
[2019-09-13] MEDS ORDERED: BENZONATATE 100 MG CAPSULE ONE (21:04)
[2019-09-14] MEDS: LEVALBUTEROL HCL 1.25 MG/3 ML NEB NEB SCH ×2 (00:21→06:57)
[2019-09-14] MEDS: DOXYCYCLINE HYCLATE 100 MG in DEXTROSE 5% 100 ML IV SCH ×2 (01:23→02:09)
[2019-09-14 06:53] LABS: Calcium 8.7 mg/dl (8.5-10.1); Creatinine Clr Calc Pharmacy 62.1 ml/min; Est GFR (African American) 101.9; Est GFR (Non-African American) 87.9; Potassium 3.6 mmol/L (3.5-5.1)
[2019-09-14] MEDS: ASPIRIN 81 MG ECTAB PO SCH (08:03)
[2019-09-14] MEDS: METOPROLOL SUCC 50MG EXT REL TAB PO SCH (08:03)
[2019-09-14] MEDS: ENOXAPARIN INJ 40 MG/0.4 ML SYR SQ SCH (08:04)
[2019-09-14] MEDS: FAMOTIDINE 20 MG TAB PO SCH (08:04)
--- NOTE | 2019-09-14 12:25 | Hospitalist Progress Note ---
Date of Service September 14, 2019 Assessment & Plan (1) Acute bronchitis: Presenting on admission with productive cough and shortness of breath for the last few days Chest x-ray showed no signs of pneumonia Influenza PCR negative Febrile this morning with Temp 38.2 Continue IV doxycycline today Will check blood cx-still pending Continue Marvin crabtree Continue to hold Humira and Methotrexate Clinically a little bit better We will continue IV doxycycline for now Can have oral doxycycline twice a day to finish the course of 10 days in total Dizziness Possible related to hypovolemia due to poor oral intake and diuresis Will not give additional lasix Continue gentle IVF-initially Continue to hold BP med except beta-noel Patient remains the lower side PT and OT evaluation-did very well Ambulating without any difficulty Rheumatoid arthritis No signs of exacerbation Hold Humira, methotrexate due to acute illness Will resume Humira and methotrexate on discharge Chronic atrial fibrillation Rate controlled continue metoprolol and aspirin Denies any cardiac symptoms Hypertension BP in the low side Continue gentle IV fluid Continue to hold amlodipine and lisinopril Will continue metoprolol with parameter Will monitor BP closely-remains on the lower side Blood pressure is controlled GERD Continue Pepcid DVT prophylaxis Lovenox subcutaneous daily CODE STATUS Full code Disposition PT OT evaluation Patient lives at home with family Will discharge home this afternoon Subjective 09/13/2019 The patient was seen and examined in the medical floor Has been feeling ill a bit better today Only complains some cough but no chest pain and/or shortness of breath 09/14/2019 The patient was seen and examined in medical floor in presence of the daughter She has been feeling a lot better today Denies any symptoms of cough, wheezing and/or shortness of breath She has been ambulating without any difficulty and she wants to go home Review of Systems Review of Systems: All systems reviewed and are unremarkable except as noted below Respiratory: no cough, no dyspnea and no dyspnea on exertion Physical Exam Physical Exam: Lying in bed comfortably Constitutional: + thin Eyes: PERRL, conjunctivae normal, anicteric sclerae ENMT: external ear and nose normal, oropharynx normal Neck: trachea midline, no thyromegaly Respiratory: normal respiratory effort; no respiratory distress Auscul tation: lungs clear to auscultation bilaterally Cardiovascular: Rate/Rhythm: regular rate and regular rhythm Heart Sounds: no murmur Gastrointestinal (Abdomen): Inspection/Auscultation: abdomen normal to inspection and normal bowel sounds Musculoskeletal: Has chronic rheumatoid arthritic changes in the extremities Neurologic: Alert, awake and oriented x3 Lymphatic: no cervical or axillary lymphadenopathy Results & Data Vital Signs (Past 12 Hours) Vital Signs Temp Pulse Resp BP BP Pulse Ox 09/14/19 12:13 36.5 C 85 18 133/74 107/69 95 09/14/19 07:00 85 18 95 09/14/19 06:51 36.5 C 81 18 133/74 95 09/14/19 00:21 81 16 96 Laboratory Results [facility] 09/14/19 05:34 Sodium 138 Potassium 3.6 Chloride 106 Carbon Dioxide 25 BUN 14 Creatinine 0.60 Glucose 92 Calcium 8.7 Medications Administered Current Inpatient Medications Acetaminophen (Tylenol) 650 mg PO Q6H PRN PRN Reason: fever/pain Stop: 10/12/19 11:43 Last Admin: 09/12/19 12:01 Dose: 650 mg Documented by: Aspirin (Ecotrin Ectab) 81 mg PO DAILY [facility] Stop: 10/12/19 08:59 Last Admin: 09/14/19 08:03 Dose: 81 mg Documented by: Benzonatate (Tessalon Perle) 100 mg PO TID PRN PRN Reason: cough Stop: 10/12/19 13:59 Last Admin: 09/13/19 21:03 Dose: 100 mg Documented by: Enoxaparin Sodium (Lovenox) 40 mg SQ Q24H [facility] Stop: 10/12/19 08:59 Last Admin: 09/14/19 08:04 Dose: 40 mg Documented by: Famotidine (Pepcid) 20 mg PO DAILY [facility] Stop: 10/12/19 08:59 Last Admin: 09/14/19 08:04 Dose: 20 mg Documented by: Doxycycline Hyclate 100 mg/ (Dextrose) 110 mls @ 50 mls/hr IV Q12H [facility] Stop: 09/19/19 00:59 Last Infusion: 09/14/19 05:45 Dose: Infused Documented by: Levalbuterol HCl (Xopenex 1.25mg/3ml Neb) 1.25 mg NEB Q6R [facility] Stop: 10/13/19 00:59 Last Admin: 09/14/19 06:57 Dose: 1.25 mg Documented by: Metoprolol Succinate (Toprol Xl) 200 mg PO DAILY [facility] Stop: 10/12/19 08:59 Last Admin: 09/14/19 08:03 Dose: 200 mg Documented by:
[2019-09-14] MEDS ORDERED: DOXYCYCLINE HYCLATE 100 MG CAP PO STA (12:30)
--- NOTE | 2019-09-15 08:17 | Discharge Summary ---
Date of Service September 15, 2019 Admission HPI Per Admitting Provider 79-year-old female with history of rheumatoid arthritis, on methotrexate and Humira, chronic atrial fibrillation, hypertension, presenting with Cough and shortness of breath times few days. Patient reports for the past few days, she has been having productive cough and shortness of breath. Denies having any fevers or chills, arthralgias, headache, nominal pain, problems urination or bowel movement. She was evaluated at the ER earlier today for shortness of breath and cough. She was given Lasix 20 mg IV for possible pulmonary edema. She was discharged to home with Lasix 20 mg p.o. daily, Tessalon Perles, and Afrin sprays. At home, the patient states that she continues to have cough and some shortness of breath. As per patient's family, upon waking up after her nap, the patient got up, and felt dizzy as if she was going to pass out and was noted to be slightly disoriented. She was then brought again to the ER for evaluation. On my exam, the patient is awake, alert, oriented x3, answers all questions a ppropriately. She does appear somewhat weak. She confirms that she still has active cough and some shortness of breath. She reports having urinary incontinence today after the Lasix. No other symptoms Primary Care Provider: Aniyah Lujan, DO Admission Exam Per Admitting Provider Physical Exam: General- oriented x 3, not in distress, speaks in sentences with no effort or accessory muscle use Positive somewhat weak Head- atraumatic Eyes- PERRL, EOMI, anicteric ENT- oropharynx clear Positive dry oral mucosa Neck- supple, no JVD, no adenopathy, no thyromegaly; carotids +2/2, no bruits appreciated Lungs-clear breath sounds bilaterally, no crackles or wheezing Heart- normal rate, irregularly irregular rhythm; no murmur, no gallop, no rub appreciated Abdomen- normal bowel sounds, nondistended, soft, nontender, no masses or hepatosplenomegaly Extremities- no pretibial edema, no calf tenderness; peripheral pulses intact Neuro- alert, oriented x 3; CN 2-12 grossly intact; motor 5/5 bilaterally;sensation 100% on all extremities; no other gross focal neurologic deficits Skin- warm & dry Principal Diagnosis Acute bronchitis, hypertension, dizziness-resolved, rheumatoid arthritis Discharge Exam Constitutional + thin Eyes PERRL, conjunctivae normal, anicteric sclerae ENMT external ear and nose normal, oropharynx normal Neck trachea midline, no thyromegaly Respiratory normal respiratory effort; no respiratory distress Auscultation: lungs clear to auscultation bilaterally Cardiovascular Rate/Rhythm: regular rate and regular rhythm Heart Sounds: no murmur Gastrointestinal (Abdomen) Inspection/Auscultation: abdomen normal to inspection and normal bowel sounds Lymphatic no cervical or axillary lymphadenopathy Discharge Data Allergies Allergy/AdvReac Type Severity Reaction Status Date / Time No Known Allergies Allergy NONE Verified 09/11/19 10:52 Consultations 09/11/19 19:42 ED Decision to Admit Stat Ordered Studies 09/11/19 17:36 CT head/brain wo con Stat Hospital Course (1) Acute bronchitis: Presenting on admission with productive cough and shortness of breath for the last few days Chest x-ray showed no signs of pneumonia Influenza PCR negative Febrile this morning with Temp 38.2 Continue IV doxycycline today Will check blood cx-still pending Continue Tessalon perle Continue to hold Humira and Methotrexate Clinically a little bit better We will continue IV doxycycline for now Can have oral doxycycline twice a day to finish the course of 10 days in total Dizziness Possible related to hypovolemia due to poor oral intake and diuresis Will not give additional lasix Continue gentle IVF-initially Continue to hold BP med except beta-noel Patient remains the lower side PT and OT evaluation-did very well Ambulating without any difficulty Rheumatoid arthritis No signs of exacerbation Hold Humira, methotrexate due to acute illness Will resume Humira and methotrexate on discharge Chronic atrial fibrillation Rate controlled continue metoprolol and aspirin Denies any cardiac symptoms Hypertension BP in the low side Continue gentle IV fluid Continue to hold amlodipine and lisinopril Will continue metoprolol with parameter Will monitor BP closely-remains on the lower side Blood pressure is controlled GERD Continue Pepcid DVT prophylaxis Lovenox subcutaneous daily CODE STATUS Full code Disposition PT OT evaluation Patient lives at home with family Will discharge home this afternoon Total Time Total Time Spent Total Time Spent (In Minutes): 35 minutes Total Time Includes: Examination of the Patient, Discharge Planning, Medication Reconciliation and Communication With Other Providers Discharge Plan Discharge Items Patient Disposition: Home - Self-Care Reason For Visit: ACUTE BRONCHITIS Discharge Diagnosis: Acute bronchitis, hypertension, dizziness-resolved, rheumatoid arthritis Condition on Discharge: Good Activity: Resume your previous activity Non-emergency contact: Primary Care Provider Call non-emergency contact if: you have any medication questions and your symptoms worsen Follow-up/Referrals: Aniyah Lujan DO [Primary Care Provider] - 09/19/19 10:45 am Diet: Regular Addtl Attending Provider Instructions: Please take precaution to avoid fall Finish the course of antibiotic Pending Studies at Discharge: No Stand-Alone Forms: [facility], Smoking Cessation Medications and DC Order Prescriptions: New doxycycline hyclate 100 mg capsule 100 mg PO BID 6 Days Qty: 12 RF: 0 Continued acetaminophen [Tylenol Extra Strength] 500 mg Tablet 1,000 mg PO HS PRN (Reason: Pain) RF: 0 methotrexate sodium 2.5 mg tablet 10 mg PO WK RF: 0 ferrous sulfate [iron] 325 mg (65 mg iron) Tablet 325 mg PO DAILY RF: 0 folic acid 1 mg Tablet 1 mg PO DAILY RF: 0 cranberry 500 mg Capsule 500 mg PO BID RF: 0 Centrum Silver 0.4-300-250 mg-mcg-mcg Tablet 1 tab PO DAILY RF: 0 Humira Pen 40 mg/0.8 mL pen injector kit 40 mg SUBCUT MONTHLY RF: 0 metoprolol succinate 200 mg tablet extended release 24 hr 200 mg PO DAILY RF: 0 lisinopril 20 mg tablet 20 mg PO DAILY RF: 0 alendronate 70 mg tablet 70 mg PO DAILY RF: 0 aspirin [Aspirin Low Dose] 81 mg Tablet,Delayed Release (Dr/Ec) 81 mg PO DAILY RF: 0 famotidine 20 mg tablet 20 mg PO DAILY RF: 0 pravastatin 80 mg tablet 80 mg PO DAILY RF: 0 amlodipine 10 mg tablet 10 mg PO DAILY RF: 0 furosemide [Lasix] 20 mg tablet 20 mg PO DAILY Qty: 7 RF: 0 benzonatate [Tessalon Perles] 100 mg capsule 200 mg PO TID PRN (Reason: cough) Qty: 20 RF: 0 Discharge Orders: Discharge Order (Routine); Ordered 09/14/19 Ordered By: Rosalina Donohue Admission Data Admit Date/Time: 09/12/19 11:57 Attending Provider: Rosalina Donohue Admit Provider: Duc Finley Primary Care Provider: Aniyah Lujan Other Providers: Stu Mancia ; Duc Finley ; Socorro Connor Other Interventions: Discharge Summary Assessment (RN) Last Done: 09/14/19 12:13 DC Date/Time DO NOT enter until pt leaves facility: 09/14/19 13:11
== END 2019-09-14 13:11 | disposition home or self-care (01) | DRG 202 ==
LOC: 2W 16:58 → ED 16:58 → SUATTDRO 23:19 → 2W 23:43 → SUATTDRO 09-12 11:57 → 4W 09-13 02:38

== ENCOUNTER 2021-07-27 02:44 | Inpatient (IN) ==
[2021-07-27] MEDS ORDERED: SODIUM CHLORIDE 0.9% 1000ML 1,000 ML IV ONE (03:54)
--- NOTE | 2021-07-27 03:58 | Emergency Department Note ---
Impression & Plan Thrombocytopenia, Uremia, acute, Leukopenia, Anemia TRANSFER ED Provider Note HPI: The patient is a 81-year-old female with history of atrial fibrillation, rheumatoid arthritis on methotrexate, presents the emergency department the chief complaint of chills and generalized weakness that has been worsening over the past several days. Patient was evaluated in the emergency department 4 days ago by myself, at that time she was complaining of a sore throat, she had CT i maging of the neck performed with IV contrast that did not show any evidence of deep space infection, did show tonsillitis. Patient states that her throat pain is still present but improved from previous, she states over the past several days however she has felt very weak, she has had some chills, she generally feels unwell and feels that she may be dehydrated. Patient denies any fevers or vomiting, states she has had a slight cough. On arrival to the ED she is afebrile, she is somewhat listless appearing but otherwise in no acute distress. ROS: -HEENT: Sore throat -General: Generalized weakness, chills *10 point review systems was conducted and is otherwise negative unless stated above *Outpatient medications and allergy history reviewed PE: General: Frail-appearing HEENT: Normocephalic, atraumatic, trachea midline, fine ulcerations to the posterior pharynx without any exudate, dry mucous membranes Eyes: Extraocular eye movement is intact, no scleral erythema Pulmonary: Clear to auscultation bilaterally, no wheezing Cardio: Regular rate and rhythm GI: Abdomen is soft, nontender : No suprapubic tenderness MSK: No evidence of trauma or malformation of the extremities, no edema Skin: No evidence of rash Neuro: Alert, no focal deficits Psychiatric: Cooperative cardiac monitor: - An order was placed for continuous cardiac monitoring - Patient was noted to be in atrial fibrillation rhythm with rate of 95 EKG: Rate: 94 Rhythm: Atrial fibrillation Intervals: Within normal limits ST changes: No ST elevation Time: 0358 CTA CHEST: Impression: Moderate cardiomegaly. Prominent pulmonary arteries suggestive of pulmonary arterial hypertension. No acute pulmonary embolism Small right-sided pleural effusion with a loculated component adjacent to the right middle lobe. Patchy densities in the left lower lobe, likely of inflammatory etiology. 7.5 mm left apical nodule on image 95, series 3. Few tree-in-bud inflammatory densities seen in the right upper lobe on image 73, series 3 Small hiatus hernia. Medical Decision Making: The patient is a 81-year-old female who presents the emergency department with a chief complaint of generalized weakness, chills, and throat discomfort that is been ongoing since she was seen here in the emergency department on 07/23. Patient states her throat discomfort had improved although overall she is felt physically more ill, states she has had chills and generalized weakness. Patient is hemodynamically stable and afebrile on arrival here to the ED. She appears somewhat frail and weak but otherwise without increased work of breathing, no focal deficits. She does have dry mucous membranes. IV was established, lab work obtained, patient was given an IV fluid bolus. Blood cultures drawn x2. Patient was evaluated here in the emergency department 4 days ago and at that time and lab work drawn, unfortunately her lab work today shows a drop in her hemoglobin from 11.7 down to 9.2, her platelet count is dropped from 40 down to 3. She has not had any evidence of gross bleeding, denies any blood per rectum, denies any recent diarrhea. She is increasingly uremic with a BUN of 36. Given these laboratory findings I do have concern for thrombotic thrombocytopenic purpura. CT angiography of the chest does not show any evidence of pulmonary embolism given the patient's complaint of shortness of breath, there is questionable pneumonia, given the patient's leukopenia will start IV antibiotics with ceftriaxone and azithromycin for pulmonary coverage. Patient was given 1 L of IV normal saline here in the ED. Blood cultures were also drawn in the ED. Case was discussed with on-call hematology, Dr. Diallo, who recommended transfer to a tertiary care facility that has plasma exchange capabilities. We will send LDH, reticulocyte count, as well as ADAMTS-13 level and peripheral smear. Case was therefore discussed with tertiary care facility at [facility], I initially discussed the case with on-call animal caretaker in charge of plasma exchange, Dr. Mesa, who accepted the patient for transfer pending bed availability. Case was also discussed with the admitting medicine provider/hospitalist, Dr. Parker, who accepted the patient to a telemetry bed for further care. At this time the patient is hemodynamically stable, she is alert and oriented x3, she is otherwise in no acute distress. Per my discussion with on-call hematology here will start FFP as a temporizing measure until plasma exchange can be done given that there is likely a greater than 24-hour wait for transfer for a bed at [facility]. I discussed all the above findings with the patient and her son at the bedside, patient signed consent for transfer. At this point, given that there will be a prolonged wait for bed availability at the tertiary care facility, I did discuss case with the on-call [facility] hospitalist here at [facility], Dr. Root, she is in agreement to accept the patient to an ICU bed for further care while awaiting transfer to [facility]. Patient is noted to be full code per my discussion with the patient and her son. * Diagnosis: Thrombocytopenia, leukopenia, uremia, anemia * Disposition: Admission pending transfer/bed availability * CRITICAL CARE TIME: 92 min -Management of critical thrombocytopenia in the setting of uremia and anemia as well as leukopenia concerning for thrombotic thrombocytopenic purpura, transfusion of fresh frozen plasma as a temporizing measure for plasma exchange therapy at [facility], interpretation of diagnostic studies, time spent at the bedside with the patient and her family, discussion with multiple other healthcare providers including specialty physicians for blood products, on-call hematology, transfer center on-call nephrology, on-call admitting hospitalist service at [facility] and here at our facility Sathish Morales DO Emergency Medicine Past Med/Surg History Medical History (Updated 07/27/21 @ 08:42 by Sathish Morales DO) Atrial fibrillation Dyslipidemia Gastritis History of DVT (deep vein thrombosis) HTN (hypertension) Rheumatoid arthritis Surgical History H/O partial mastectomy "04/21/10 Right needle localized partial mastectomy/SLNB at [facility] - Dr. Evans " History of bilateral knee arthroplasty History of carpal tunnel surgery "bilateral" Social History Smoking Status: Never smoker Hx Alcohol Use: No Preferred Language: Maltese Communication Ability: Effective Automotive Diagnostic Technician Required: No Beliefs That Will Affect Care: None Current Living Situation: Family Current Living Situation Comment: Pt lives with her son, Jerome Rosario Feels Safe at Home: Yes Assistive Devices: Walker Allergies Allergies Allergy/AdvReac Type Severity Reaction Status Date / Time No Known Allergies Allergy NONE Verified 07/23/21 19:18 Home Meds Home Medications Medication Instructions Recorded Confirmed adalimumab 40 mg/0.8 mL 40 mg SUBCUT MONTHLY 09/11/19 07/23/21 subcutaneous pen kit (Humira Pen) amlodipine 10 mg tablet 10 mg PO DAILY 09/11/19 07/23/21 aspirin 81 mg tablet,delayed 81 mg PO DAILY 09/11/19 07/23/21 release (Aspirin Low Dose) famotidine 20 mg tablet 20 mg PO DAILY 09/11/19 07/23/21 ferrous sulfate 325 mg (65 mg 325 mg PO DAILY 09/11/19 07/23/21 iron) tablet (iron) folic acid 1 mg tablet 1 mg PO DAILY 09/11/19 07/23/21 lisinopril 20 mg tablet 20 mg PO DAILY 09/11/19 07/23/21 methotrexate sodium 2.5 mg tablet 10 mg PO WK 09/11/19 07/23/21 metoprolol succinate 200 mg 200 mg PO DAILY 09/11/19 07/23/21 tablet,extended release 24 hr [id number] acid 0.4 1 tab PO DAILY 09/11/19 07/23/21 mg-lycopene 300 mcg-lutein 250 mcg tablet (Centrum Silver) pravastatin 80 mg tablet 80 mg PO HS 09/11/19 07/23/21 acetaminophen 500 mg tablet 1,000 mg PO HS 06/03/21 07/23/21 (Tylenol Extra Strength) alendronate 70 mg tablet 70 mg PO WK 06/03/21 07/23/21 furosemide 20 mg tablet (Lasix) 20 mg PO DAILY PRN 06/03/21 07/23/21 doxycycline hyclate 100 mg capsule 100 mg PO BID 07/23/21 07/23/21 Results & Data (ED) Vital Signs Vital Signs - 24 hr 07/27/21 02:48 07/27/21 04:15 07/27/21 04:17 Temperature 37.0 C Temperature Source Temporal Artery Scan Pulse Rate 90 Pulse Rate [Apical] 87 Respiratory Rate 18 22 Respiratory Effort / Characteristics Non-Labored Spontaneous Respiratory Depth Normal Normal Respiratory Pattern Regular Blood Pressure 96/52 L Blood Pressure [Left Arm] 122/48 L Blood Pressure Mean 66 Blood Pressure Mean [Left Arm] 72 Pulse Oximetry 97 98 98 Oxygen Delivery Method Room Air Room Air Room Air Sepsis Recent Fever Within 48 Hours No Sepsis New/Unexplained Change in Mental Status No Sepsis Action Taken by Nursing No Action Required 07/27/21 05:08 07/27/21 06:00 07/27/21 08:00 Temperature Temperature Source Pulse Rate Pulse Rate [Apical] 90 99 H 106 H Respiratory Rate 22 22 18 Respiratory Effort / Characteristics Respiratory Depth Normal Normal Respiratory Pattern Regular Blood Pressure Blood Pressure [Left Arm] 100/55 L 105/55 L 101/51 L Blood Pressure Mean Blood Pressure Mean [Left Arm] 70 71 67 Pulse Oximetry 94 92 94 Oxygen Delivery Method Room Air Room Air Room Air Sepsis Recent Fever Within 48 Hours Sepsis New/Unexplained Change in Mental Status Sepsis Action Taken by Nursing Laboratory Data Result diagrams: 07/27/21 07:21 07/27/21 05:46 Lab Results 07/27/21 07/27/21 07/27/21 Range/Units 03:54 03:54 03:54 WBC Cancelled RBC Cancelled Hgb Cancelled Hct Cancelled MCV Cancelled MCH Cancelled MCHC Cancelled RDW Std Deviation Cancelled RDW Coeff of Ezra Cancelled Plt Count Cancelled MPV Cancelled Immature Gran % (Auto) Cancelled Neut % (Auto) Cancelled Lymph % (Auto) Cancelled Swisher % (Auto) Cancelled Eos % (Auto) Cancelled Baso % (Auto) Cancelled Reticulocyte % (Auto) (0.5-2.0) % Neut # (Auto) Cancelled Lymph # (Auto) Cancelled Swisher # (Auto) Cancelled Eos # (Auto) Cancelled Baso # (Auto) Cancelled Reticulocyte # (0.02-0.10) 10^6/uL Immature Gran # (Auto) Cancelled Absolute Nucleated RBC Cancelled Nucleated RBC % (auto) Cancelled Neutrophils % (Manual) Cancelled Band Neutrophils % Cancelled Lymphocytes % (Manual) Cancelled Prolymphocyte % Cancelled Reactive Lymphs % (Man) Cancelled Monocytes % (Manual) Cancelled Eosinophils % (Manual) Cancelled Basophils % (Manual) Cancelled Metamyelocytes % (Man) Cancelled Myelocytes % (Man) Cancelled Promyelocytes % (Man) Cancelled Blast Cells % (Manual) Cancelled Plasma Cell % (Manual) Cancelled Other Cells % Cancelled Nucleated RBC % Cancelled Neutrophils # (Manual) Cancelled Band Neutrophils # Cancelled Total Absolute Neuts Cancelled Lymphocytes # (Manual) Cancelled Prolymphocyte # Cancelled Reactive Lymphs # Cancelled Total Abs Lymphocytes Cancelled Monocytes # (Manual) Cancelled Eosinophils # (Manual) Cancelled Basophils # (Manual) Cancelled Metamyelocytes # (Man) Cancelled Myelocytes # (Manual) Cancelled Promyelocytes # (Man) Cancelled Blast Cells # (Man) Cancelled Plasma Cell # (Manual) Cancelled Other Cells # Cancelled Nucleated RBCs # (Man) Cancelled Hypersegmented Neuts Cancelled Hyposegmented Neuts Cancelled Hypogranular Neuts Cancelled Large Granular Lymphs Cancelled # Lrg Granular Lymphs Cancelled Hairy Cells Cancelled Smudge Cells Cancelled Toxic Granulation Cancelled Toxic Vacuolation Cancelled Dohle Bodies Cancelled Ryan Rods Cancelled Platelet Estimate Cancelled Hypogranular Platelets Cancelled Clumped Platelets Cancelled Giant Platelets Cancelled Platelet Satelliting Cancelled RBC Morphology Cancelled Polychromasia Cancelled Hypochromasia Cancelled Poikilocytosis Cancelled Basophilic Stippling Cancelled Anisocytosis Cancelled Microcytosis Cancelled Macrocytosis Cancelled Spherocytes Cancelled Pappenheimer Bodies Cancelled Sickle Cells Cancelled Target Cells Cancelled Tear Drop Cells Cancelled Ovalocytes Cancelled Stomatocytes Cancelled [place] Bodies Cancelled Echinocytes Cancelled Acanthocytes (Spur) Cancelled Rouleaux Cancelled RBC Agglutinates Cancelled Schistocytes Cancelled RBC Morph Comment Cancelled Peripher Smr Path Cons Sezary Cell Cancelled PT Cancelled INR Cancelled APTT Cancelled PTT Ratio Cancelled Sodium 135 L (136-145) mmol/L Potassium (3.5-5.1) mmol/L Chloride 104 (98-107) mmol/L Carbon Dioxide 25 (21-32) mmol/L Anion Gap 6.0 (3-11) BUN 36 H (7-18) mg/dl Creatinine 0.58 L (0.6-1.2) mg/dl Est Cr Clr Drug Dosing 67.9 ml/min Est GFR ( Amer) 101.6 ml/min Est GFR (Non-Af Amer) 87.7 ml/min BUN/Creatinine Ratio 62.1 H (10-20) Glucose 123 H (70-99) mg/dl Lactate (0.4-2.0) mmol/L Calcium 8.8 (8.5-10.1) mg/dl Magnesium (1.8-2.4) mg/dl Total Bilirubin 1.3 H (0.2-1) mg/dl AST (15-37) U/L ALT 16 (12-78) Alkaline Phosphatase 77 (45-117) U/L Lactate Dehydrogenase (84-246) U/L Troponin I < 0.015 (0-0.045) ng/ml Total Protein 6.7 (6.4-8.2) gm/dl Albumin 2.2 L (3.4-5.0) gm/dl Globulin 4.5 H (2.5-4.0) gm/dl Albumin/Globulin Ratio 0.5 L (0.9-2) Procalcitonin Urine Color Urine Appearance (Clear) Urine pH (4.5-7.5) Ur Specific Rison (1.000-1.030) Urine Protein (Negative) Urine Glucose (UA) (Negative) Urine Ketones (Negative) Urine Blood (Negative) Urine Nitrite (Negative) Urine Bilirubin (Negative) Urine Urobilinogen (Negative) Ur Leukocyte Esterase (Negative) SARS-CoV-2 (PCR) (Negative) Influenza Type A (PCR) (Neg) Influenza Type B (PCR) (Neg) RSV (RT-PCR) (Neg) 07/27/21 07/27/21 07/27/21 Range/Units 03:54 04:10 05:01 WBC RBC Hgb Hct MCV MCH MCHC RDW Std Deviation RDW Coeff of Ezra Plt Count MPV Immature Gran % (Auto) Neut % (Auto) Lymph % (Auto) Swisher % (Auto) Eos % (Auto) Baso % (Auto) Reticulocyte % (Auto) (0.5-2.0) % Neut # (Auto) Lymph # (Auto) Swisher # (Auto) Eos # (Auto) Baso # (Auto) Reticulocyte # (0.02-0.10) 10^6/uL Immature Gran # (Auto) Absolute Nucleated RBC Nucleated RBC % (auto) Neutrophils % (Manual) Band Neutrophils % Lymphocytes % (Manual) Prolymphocyte % Reactive Lymphs % (Man) Monocytes % (Manual) Eosinophils % (Manual) Basophils % (Manual) Metamyelocytes % (Man) Myelocytes % (Man) Promyelocytes % (Man) Blast Cells % (Manual) Plasma Cell % (Manual) Other Cells % Nucleated RBC % Neutrophils # (Manual) Band Neutrophils # Total Absolute Neuts Lymphocytes # (Manual) Prolymphocyte # Reactive Lymphs # Total Abs Lymphocytes Monocytes # (Manual) Eosinophils # (Manual) Basophils # (Manual) Metamyelocytes # (Man) Myelocytes # (Manual) Promyelocytes # (Man) Blast Cells # (Man) Plasma Cell # (Manual) Other Cells # Nucleated RBCs # (Man) Hypersegmented Neuts Hyposegmented Neuts Hypogranular Neuts Large Granular Lymphs # Lrg Granular Lymphs Hairy Cells Smudge Cells Toxic Granulation Toxic Vacuolation Dohle Bodies Ryan Rods Platelet Estimate Hypogranular Platelets Clumped Platelets Giant Platelets Platelet Satelliting RBC Morphology Polychromasia Hypochromasia Poikilocytosis Basophilic Stippling Anisocytosis Microcytosis Macrocytosis Spherocytes Pappenheimer Bodies Sickle Cells Target Cells Tear Drop Cells Ovalocytes Stomatocytes [place] Bodies Echinocytes Acanthocytes (Spur) Rouleaux RBC Agglutinates Schistocytes RBC Morph Comment Peripher Smr Path Cons Sezary Cell PT INR APTT PTT Ratio Sodium (136-145) mmol/L Potassium (3.5-5.1) mmol/L Chloride (98-107) mmol/L Carbon Dioxide (21-32) mmol/L Anion Gap (3-11) BUN (7-18) mg/dl Creatinine (0.6-1.2) mg/dl Est Cr Clr Drug Dosing ml/min Est GFR ( Amer) ml/min Est GFR (Non-Af Amer) ml/min BUN/Creatinine Ratio (10-20) Glucose (70-99) mg/dl Lactate 1.7 (0.4-2.0) mmol/L Calcium (8.5-10.1) mg/dl Magnesium (1.8-2.4) mg/dl Total Bilirubin (0.2-1) mg/dl AST (15-37) U/L ALT (12-78) Alkaline Phosphatase (45-117) U/L Lactate Dehydrogenase (84-246) U/L Troponin I (0-0.045) ng/ml Total Protein (6.4-8.2) gm/dl Albumin (3.4-5.0) gm/dl Globulin (2.5-4.0) gm/dl Albumin/Globulin Ratio (0.9-2) Procalcitonin Cancelled Urine Color Urine Appearance (Clear) Urine pH (4.5-7.5) Ur Specific Rison (1.000-1.030) Urine Protein (Negative) Urine Glucose (UA) (Negative) Urine Ketones (Negative) Urine Blood (Negative) Urine Nitrite (Negative) Urine Bilirubin (Negative) Urine Urobilinogen (Negative) Ur Leukocyte Esterase (Negative) SARS-CoV-2 (PCR) NEGATIVE (Negative) Influenza Type A (PCR) Negative (Neg) Influenza Type B (PCR) Negative (Neg) RSV (RT-PCR) Negative (Neg) 07/27/21 07/27/21 07/27/21 Range/Units 05:46 05:46 05:46 WBC Cancelled RBC Cancelled Hgb Cancelled Hct Cancelled MCV Cancelled MCH Cancelled MCHC Cancelled RDW Std Deviation Cancelled RDW Coeff of Ezra Cancelled Plt Count Cancelled MPV Cancelled Immature Gran % (Auto) Cancelled Neut % (Auto) Cancelled Lymph % (Auto) Cancelled Swisher % (Auto) Cancelled Eos % (Auto) Cancelled Baso % (Auto) Cancelled Reticulocyte % (Auto) (0.5-2.0) % Neut # (Auto) Cancelled Lymph # (Auto) Cancelled Swisher # (Auto) Cancelled Eos # (Auto) Cancelled Baso # (Auto) Cancelled Reticulocyte # (0.02-0.10) 10^6/uL Immature Gran # (Auto) Cancelled Absolute Nucleated RBC Cancelled Nucleated RBC % (auto) Cancelled Neutrophils % (Manual) Cancelled Band Neutrophils % Cancelled Lymphocytes % (Manual) Cancelled Prolymphocyte % Cancelled Reactive Lymphs % (Man) Cancelled Monocytes % (Manual) Cancelled Eosinophils % (Manual) Cancelled Basophils % (Manual) Cancelled Metamyelocytes % (Man) Cancelled Myelocytes % (Man) Cancelled Promyelocytes % (Man) Cancelled Blast Cells % (Manual) Cancelled Plasma Cell % (Manual) Cancelled Other Cells % Cancelled Nucleated RBC % Cancelled Neutrophils # (Manual) Cancelled Band Neutrophils # Cancelled Total Absolute Neuts Cancelled Lymphocytes # (Manual) Cancelled Prolymphocyte # Cancelled Reactive Lymphs # Cancelled Total Abs Lymphocytes Cancelled Monocytes # (Manual) Cancelled Eosinophils # (Manual) Cancelled Basophils # (Manual) Cancelled Metamyelocytes # (Man) Cancelled Myelocytes # (Manual) Cancelled Promyelocytes # (Man) Cancelled Blast Cells # (Man) Cancelled Plasma Cell # (Manual) Cancelled Other Cells # Cancelled Nucleated RBCs # (Man) Cancelled Hypersegmented Neuts Cancelled Hyposegmented Neuts Cancelled Hypogranular Neuts Cancelled Large Granular Lymphs Cancelled # Lrg Granular Lymphs Cancelled Hairy Cells Cancelled Smudge Cells Cancelled Toxic Granulation Cancelled Toxic Vacuolation Cancelled Dohle Bodies Cancelled Ryan Rods Cancelled Platelet Estimate Cancelled Hypogranular Platelets Cancelled Clumped Platelets Cancelled Giant Platelets Cancelled Platelet Satelliting Cancelled RBC Morphology Cancelled Polychromasia Cancelled Hypochromasia Cancelled Poikilocytosis Cancelled Basophilic Stippling Cancelled Anisocytosis Cancelled Microcytosis Cancelled Macrocytosis Cancelled Spherocytes Cancelled Pappenheimer Bodies Cancelled Sickle Cells Cancelled Target Cells Cancelled Tear Drop Cells Cancelled Ovalocytes Cancelled Stomatocytes Cancelled [place] Bodies Cancelled Echinocytes Cancelled Acanthocytes (Spur) Cancelled Rouleaux Cancelled RBC Agglutinates Cancelled Schistocytes Cancelled RBC Morph Comment Cancelled Peripher Smr Path Cons Sezary Cell Cancelled PT 11.3 INR 1.1 APTT 31.9 H PTT Ratio 1.2 Sodium (136-145) mmol/L Potassium 3.2 L (3.5-5.1) mmol/L Chloride (98-107) mmol/L Carbon Dioxide (21-32) mmol/L Anion Gap (3-11) BUN (7-18) mg/dl Creatinine (0.6-1.2) mg/dl Est Cr Clr Drug Dosing ml/min Est GFR ( Amer) ml/min Est GFR (Non-Af Amer) ml/min BUN/Creatinine Ratio (10-20) Glucose (70-99) mg/dl Lactate (0.4-2.0) mmol/L Calcium (8.5-10.1) mg/dl Magnesium 1.4 L (1.8-2.4) mg/dl Total Bilirubin (0.2-1) mg/dl AST 9 L (15-37) U/L ALT (12-78) Alkaline Phosphatase (45-117) U/L Lactate Dehydrogenase (84-246) U/L Troponin I (0-0.045) ng/ml Total Protein (6.4-8.2) gm/dl Albumin (3.4-5.0) gm/dl Globulin (2.5-4.0) gm/dl Albumin/Globulin Ratio (0.9-2) Procalcitonin Urine Color Urine Appearance (Clear) Urine pH (4.5-7.5) Ur Specific Rison (1.000-1.030) Urine Protein (Negative) Urine Glucose (UA) (Negative) Urine Ketones (Negative) Urine Blood (Negative) Urine Nitrite (Negative) Urine Bilirubin (Negative) Urine Urobilinogen (Negative) Ur Leukocyte Esterase (Negative) SARS-CoV-2 (PCR) (Negative) Influenza Type A (PCR) (Neg) Influenza Type B (PCR) (Neg) RSV (RT-PCR) (Neg) 07/27/21 07/27/21 07/27/21 Range/Units 05:46 05:46 06:49 WBC RBC Hgb Hct MCV MCH MCHC RDW Std Deviation RDW Coeff of Ezra Plt Count MPV Immature Gran % (Auto) Neut % (Auto) Lymph % (Auto) Swisher % (Auto) Eos % (Auto) Baso % (Auto) Reticulocyte % (Auto) (0.5-2.0) % Neut # (Auto) Lymph # (Auto) Swisher # (Auto) Eos # (Auto) Baso # (Auto) Reticulocyte # (0.02-0.10) 10^6/uL Immature Gran # (Auto) Absolute Nucleated RBC Nucleated RBC % (auto) Neutrophils % (Manual) Band Neutrophils % Lymphocytes % (Manual) Prolymphocyte % Reactive Lymphs % (Man) Monocytes % (Manual) Eosinophils % (Manual) Basophils % (Manual) Metamyelocytes % (Man) Myelocytes % (Man) Promyelocytes % (Man) Blast Cells % (Manual) Plasma Cell % (Manual) Other Cells % Nucleated RBC % Neutrophils # (Manual) Band Neutrophils # Total Absolute Neuts Lymphocytes # (Manual) Prolymphocyte # Reactive Lymphs # Total Abs Lymphocytes Monocytes # (Manual) Eosinophils # (Manual) Basophils # (Manual) Metamyelocytes # (Man) Myelocytes # (Manual) Promyelocytes # (Man) Blast Cells # (Man) Plasma Cell # (Manual) Other Cells # Nucleated RBCs # (Man) Hypersegmented Neuts Hyposegmented Neuts Hypogranular Neuts Large Granular Lymphs # Lrg Granular Lymphs Hairy Cells Smudge Cells Toxic Granulation Toxic Vacuolation Dohle Bodies Ryan Rods Platelet Estimate Hypogranular Platelets Clumped Platelets Giant Platelets Platelet Satelliting RBC Morphology Polychromasia Hypochromasia Poikilocytosis Basophilic Stippling Anisocytosis Microcytosis Macrocytosis Spherocytes Pappenheimer Bodies Sickle Cells Target Cells Tear Drop Cells Ovalocytes Stomatocytes [place] Bodies Echinocytes Acanthocytes (Spur) Rouleaux RBC Agglutinates Schistocytes RBC Morph Comment Peripher Smr Path Cons Sezary Cell PT INR APTT PTT Ratio Sodium (136-145) mmol/L Potassium (3.5-5.1) mmol/L Chloride (98-107) mmol/L Carbon Dioxide (21-32) mmol/L Anion Gap (3-11) BUN (7-18) mg/dl Creatinine (0.6-1.2) mg/dl Est Cr Clr Drug Dosing ml/min Est GFR ( Amer) ml/min Est GFR (Non-Af Amer) ml/min BUN/Creatinine Ratio (10-20) Glucose (70-99) mg/dl Lactate (0.4-2.0) mmol/L Calcium (8.5-10.1) mg/dl Magnesium (1.8-2.4) mg/dl Total Bilirubin (0.2-1) mg/dl AST (15-37) U/L ALT (12-78) Alkaline Phosphatase (45-117) U/L Lactate Dehydrogenase 112 (84-246) U/L Troponin I (0-0.045) ng/ml Total Protein (6.4-8.2) gm/dl Albumin (3.4-5.0) gm/dl Globulin (2.5-4.0) gm/dl Albumin/Globulin Ratio (0.9-2) Procalcitonin 0.11 Urine Color Yellow Urine Appearance Clear (Clear) Urine pH 5.0 (4.5-7.5) Ur Specific Rison > 1.045 H (1.000-1.030) Urine Protein Negative (Negative) Urine Glucose (UA) Negative (Negative) Urine Ketones Negative (Negative) Urine Blood Negative (Negative) Urine Nitrite Negative (Negative) Urine Bilirubin Negative (Negative) Urine Urobilinogen Negative (Negative) Ur Leukocyte Esterase Negative (Negative) SARS-CoV-2 (PCR) (Negative) Influenza Type A (PCR) (Neg) Influenza Type B (PCR) (Neg) RSV (RT-PCR) (Neg) 07/27/21 07/27/21 Range/Units 07:21 07:21 WBC 0.69 L* RBC 2.81 L Hgb 9.2 L Hct 27.3 L MCV 97.2 MCH 32.7 MCHC 33.7 RDW Std Deviation 52.9 H RDW Coeff of Ezra 14.9 H Plt Count 3 L* MPV Immature Gran % (Auto) 2.9 Neut % (Auto) 2.9 Lymph % (Auto) 91.3 Swisher % (Auto) 0.0 Eos % (Auto) 2.9 Baso % (Auto) 0.0 Reticulocyte % (Auto) < 0.5 L (0.5-2.0) % Neut # (Auto) 0.02 L* Lymph # (Auto) 0.63 L Swisher # (Auto) 0.00 L Eos # (Auto) 0.02 Baso # (Auto) 0.00 Reticulocyte # < 0.02 L (0.02-0.10) 10^6/uL Immature Gran # (Auto) 0.02 Absolute Nucleated RBC Nucleated RBC % (auto) Neutrophils % (Manual) Band Neutrophils % Lymphocytes % (Manual) Prolymphocyte % Reactive Lymphs % (Man) Monocytes % (Manual) Eosinophils % (Manual) Basophils % (Manual) Metamyelocytes % (Man) Myelocytes % (Man) Promyelocytes % (Man) Blast Cells % (Manual) Plasma Cell % (Manual) Other Cells % Nucleated RBC % Neutrophils # (Manual) Band Neutrophils # Total Absolute Neuts Lymphocytes # (Manual) Prolymphocyte # Reactive Lymphs # Total Abs Lymphocytes Monocytes # (Manual) Eosinophils # (Manual) Basophils # (Manual) Metamyelocytes # (Man) Myelocytes # (Manual) Promyelocytes # (Man) Blast Cells # (Man) Plasma Cell # (Manual) Other Cells # Nucleated RBCs # (Man) Hypersegmented Neuts Hyposegmented Neuts Hypogranular Neuts Large Granular Lymphs # Lrg Granular Lymphs Hairy Cells Smudge Cells Toxic Granulation Toxic Vacuolation Dohle Bodies Ryan Rods Platelet Estimate SIGNIFIC DECREASED Hypogranular Platelets Clumped Platelets Giant Platelets Platelet Satelliting RBC Morphology Polychromasia Hypochromasia Poikilocytosis Basophilic Stippling Anisocytosis Microcytosis Macrocytosis Spherocytes Pappenheimer Bodies Sickle Cells Target Cells Tear Drop Cells Ovalocytes Stomatocytes [place] Bodies Echinocytes Acanthocytes (Spur) Rouleaux RBC Agglutinates Schistocytes RBC Morph Comment Peripher Smr Path Cons Cancelled Sezary Cell PT INR APTT PTT Ratio Sodium (136-145) mmol/L Potassium (3.5-5.1) mmol/L Chloride (98-107) mmol/L Carbon Dioxide (21-32) mmol/L Anion Gap (3-11) BUN (7-18) mg/dl Creatinine (0.6-1.2) mg/dl Est Cr Clr Drug Dosing ml/min Est GFR ( Amer) ml/min Est GFR (Non-Af Amer) ml/min BUN/Creatinine Ratio (10-20) Glucose (70-99) mg/dl Lactate (0.4-2.0) mmol/L Calcium (8.5-10.1) mg/dl Magnesium (1.8-2.4) mg/dl Total Bilirubin (0.2-1) mg/dl AST (15-37) U/L ALT (12-78) Alkaline Phosphatase (45-117) U/L Lactate Dehydrogenase (84-246) U/L Troponin I (0-0.045) ng/ml Total Protein (6.4-8.2) gm/dl Albumin (3.4-5.0) gm/dl Globulin (2.5-4.0) gm/dl Albumin/Globulin Ratio (0.9-2) Procalcitonin Urine Color Urine Appearance (Clear) Urine pH (4.5-7.5) Ur Specific Rison (1.000-1.030) Urine Protein (Negative) Urine Glucose (UA) (Negative) Urine Ketones (Negative) Urine Blood (Negative) Urine Nitrite (Negative) Urine Bilirubin (Negative) Urine Urobilinogen (Negative) Ur Leukocyte Esterase (Negative) SARS-CoV-2 (PCR) (Negative) Influenza Type A (PCR) (Neg) Influenza Type B (PCR) (Neg) RSV (RT-PCR) (Neg) Administered Medications Discontinued Medications Sodium Chloride (Nss 1000ml) 1,000 mls @ 999 mls/hr IV .Q1H1M ONE Stop: 07/27/21 04:54 Last Infusion: 07/27/21 06:09 Dose: 0 mls/hr Documented by: [id number] Admin: 07/27/21 05:08 Dose: 999 mls/hr Documented by: [id number] Ioversol (Optiray 320 125ml) 120 ml IV ONCE ONE Stop: 07/27/21 06:23 Last Admin: 07/27/21 06:14 Dose: 120 ml Documented by: [id number] Potassium Chloride (Potassium Chloride Crtab 20 Meq Tabcr) 40 meq PO NOW STA Stop: 07/27/21 07:26 Last Admin: 07/27/21 08:30 Dose: 40 meq Documented by: [id number] Imaging Data Radiologist's Impression: Chest CTA 07/27/21 04:21 CT ANGIOGRAPHY OF THE CHEST, PULMONARY EMBOLUS PROTOCOL CLINICAL HISTORY: Shortness of breath. Fatigue. Evaluate for pulmonary embolus. COMPARISON STUDY: Chest CT September 03, 2016. Chest radiograph performed earlier today. TECHNIQUE: Following IV administration of 120 mL of Optiray, helical axial images of the chest were obtained utilizing the pulmonary embolus protocol. Maximal intensity projections and sagittal and coronal reformats were viewed on an independent 3D workstation. IV contrast was administered without complication. Automated exposure control was utilized for the study. A dose lowering technique was utilized adhering to the principles of ALARA. CT DOSE: 349.09 mGy.cm FINDINGS: No pulmonary emboli are identified. There is moderate to marked cardiomegaly. Trace pericardial effusion is noted. There is a small hiatal hernia. There is no pneumothorax. Small right and trace left pleural effusions are noted. There are multifocal groundglass opacities within the left lower lobe. There are scattered tree-in-bud nodules within the lungs. The previously described right middle lobe nodule is not identified on this examination. There is an irregular hyperdense 2.5 cm subpleural density within the right lower lobe on image 51 of 271. There is a similar-appearing 3.7 cm subpleural hyperdense subpleural focus within the right lower lobe on image 41. Central airways are patent. A cyst within the upper pole of the left kidney is incidentally noted. IMPRESSION: 1. No pulmonary emboli identified. 2. Multifocal groundglass opacities within the left lower lobe. The findings favor an infectious process. 3. A few indeterminate hypodense subpleural right lower lobe densities. These could reflect scar. Neoplastic process is considered less likely but is within the differential. A follow-up chest CT in 6 months is recommended. 4. Scattered tree-in-bud nodules within the lungs which are likely infectious or inflammatory. However, these can be assessed on follow-up CT to ensure resolution. 5. Moderate to marked cardiomegaly. 6. Small right and trace left pleural effusions. ACT 112: Negative or not required by law. Electronically signed by: Holland Barros M.D. 07/27/2021 8:53 AM Discharge Plan Visit Data Chief Complaint: Shortness of Breath/Dyspnea Stated Complaint: SOB,GENERALLY NOT FEELING WELL ED Provider: Sathish Moralse Discharge Problem: Thrombocytopenia, Uremia, acute, Leukopenia, Anemia Forms Stand Alone Forms: [facility] Prescriptions Prescriptions: No Action methotrexate sodium 2.5 mg tablet 10 mg PO WK RF: 0 ferrous sulfate [iron] 325 mg (65 mg iron) Tablet 325 mg PO DAILY RF: 0 folic acid 1 mg Tablet 1 mg PO DAILY RF: 0 Centrum Silver 0.4-300-250 mg-mcg-mcg Tablet 1 tab PO DAILY RF: 0 Humira Pen 40 mg/0.8 mL pen injector kit 40 mg SUBCUT MONTHLY RF: 0 metoprolol succinate 200 mg tablet extended release 24 hr 200 mg PO DAILY RF: 0 lisinopril 20 mg tablet 20 mg PO DAILY RF: 0 aspirin [Aspirin Low Dose] 81 mg Tablet,Delayed Release (Dr/Ec) 81 mg PO DAILY RF: 0 famotidine 20 mg tablet 20 mg PO DAILY RF: 0 pravastatin 80 mg tablet 80 mg PO HS RF: 0 amlodipine 10 mg tablet 10 mg PO DAILY RF: 0 alendronate 70 mg tablet 70 mg PO WK RF: 0 acetaminophen [Tylenol Extra Strength] 500 mg Tablet 1,000 mg PO HS RF: 0 furosemide [Lasix] 20 mg tablet 20 mg PO DAILY PRN (Reason: SWELLING) RF: 0 doxycycline hyclate 100 mg capsule 100 mg PO BID RF: 0 Referrals Referrals: Aniyah Lujan DO [Primary Care Provider] - Discharge Problem: Leukopenia Qualifiers: Leukopenia type: neutropenia Neutropenia type: unspecified Qualified Code(s): D70.9 - Neutropenia, unspecified Anemia Qualifiers: Anemia type: other cause Other causes of anemia: other cause, not classified Qualified Code(s): D64.89 - Other specified anemias
[2021-07-27 05:06] LABS: Influenza A virus by PCR Negative (Neg); Influenza B virus by PCR Negative (Neg); RSV by PCR Negative (Neg)
[2021-07-27 05:22] LABS: Alanine Aminotransferase 16 (12-78); Albumin Level 2.2 gm/dl (3.4-5.0); BUN Creatinine Ratio 62.1 (10-20); Blood Urea Nitrogen 36 mg/dl (7-18); Calcium 8.8 mg/dl (8.5-10.1); Carbon Dioxide 25 mmol/L (21-32); Chloride 104 mmol/L (98-107); Creatinine Clr Calc Pharmacy 67.9 ml/min; Est GFR (African American) 101.6 ml/min; Est GFR (Non-African American) 87.7 ml/min; Glucose 123 mg/dl (70-99); Sodium 135 mmol/L (136-145)
[2021-07-27 05:26] LABS: Albumin Globulin Ratio 0.5 (0.9-2); Alkaline Phosphatase 77 U/L (45-117); Bilirubin,Total 1.3 mg/dl (0.2-1); Globulin 4.5 gm/dl (2.5-4.0); Total Protein 6.7 gm/dl (6.4-8.2); Troponin I < 0.015 ng/ml (0-0.045)
[2021-07-27] MEDS ORDERED: OPTIRAY 320 125ml IV ONE (06:22)
[2021-07-27 06:23] LABS: INR 1.1 (0.9-1.1); Partial Thromboplastin Ratio 1.2; Partial Thromboplastin Time 31.9 Seconds (21.0-31.0); Prothrombin Time 11.3 Seconds (9.0-12.0)
[2021-07-27 06:24] LABS: Potassium 3.2 mmol/L (3.5-5.1)
[2021-07-27 06:29] LABS: Magnesium 1.4 mg/dl (1.8-2.4)
[2021-07-27 07:03] LABS: Appearance Urine Clear (Clear); Bilirubin Urine Negative (Negative); Blood Urine Negative (Negative); Color Urine Yellow; Glucose Urine UA Negative (Negative); Ketones Urine Negative (Negative); Leukocyte Esterase Urine Negative (Negative); Nitrite Urine Negative (Negative); Protein Urine Negative (Negative); Specific Gravity Urine > 1.045 (1.000-1.030); Urobilinogen Urine Negative (Negative)
[2021-07-27] MEDS ORDERED: POTASSIUM CHLORIDE CRTAB 20 MEQ TABCR PO STA ×2 (07:25→18:56)
[2021-07-27 07:39] LABS: Hematocrit (blood only) 27.3 % (37-47); Hemoglobin 9.2 g/dL (12.0-16.0); Mean Corpuscular Hemoglobin 32.7 pg (25-34); Mean Corpuscular Hgb Conc 33.7 g/dL (32-36); Mean Corpuscular Volume 97.2 fL (80-100); Platelet Count 3 K/uL (130-400); RDW Coefficient of Variation 14.9 % (11.5-14.5); RDW Standard Deviation 52.9 fL (36.4-46.3); Red Blood Count 2.81 M/uL (4.2-5.4); White Blood Count 0.69 K/uL (4.8-10.8)
[2021-07-27 07:58] LABS: Eosinophils # (auto) 0.02 K/uL (0-0.5); Eosinophils % (auto) 2.9 %; Immature Granulocytes # (auto) 0.02 K/uL (0.00-0.02); Immature Granulocytes % (auto) 2.9 %; Lymphocytes # (auto) 0.63 K/uL (1.2-3.4); Lymphocytes % (auto) 91.3 %; Neutrophils # (auto) 0.02 K/uL (1.4-6.5); Neutrophils % (auto) 2.9 %; Platelet Estimate SIGNIFIC DECREASED (Normal)
--- NOTE | 2021-07-27 08:54 | CT Scan Report ---
CT ANGIOGRAPHY OF THE CHEST, PULMONARY EMBOLUS PROTOCOL CLINICAL HISTORY: Shortness of breath. Fatigue. Evaluate for pulmonary embolus. COMPARISON STUDY: Chest CT September 03, 2016. Chest radiograph performed earlier today. TECHNIQUE: Following IV administration of 120 mL of Optiray, helical axial images of the chest were o btained utilizing the pulmonary embolus protocol. Maximal intensity projections and sagittal and cor onal reformats were viewed on an independent 3D workstation. IV contrast was administered without co mplication. Automated exposure control was utilized for the study. A dose lowering technique was ut ilized adhering to the principles of ALARA. CT DOSE: 349.09 mGy.cm FINDINGS: No pulmonary emboli are identified. There is moderate to marked cardiomegaly. Trace perica rdial effusion is noted. There is a small hiatal hernia. There is no pneumothorax. Small right and tr srinivas left pleural effusions are noted. There are multifocal groundglass opacities within the left lowe r lobe. There are scattered tree-in-bud nodules within the lungs. The previously described right midd le lobe nodule is not identified on this examination. There is an irregular hyperdense 2.5 cm subpleu ral density within the right lower lobe on image 51 of 271. There is a similar-appearing 3.7 cm subpl eural hyperdense subpleural focus within the right lower lobe on image 41. Central airways are patent . A cyst within the upper pole of the left kidney is incidentally noted. IMPRESSION: 1. No pulmonary emboli identified. 2. Multifocal groundglass opacities within the left lower lobe. The findings favor an infectious proc ess. 3. A few indeterminate hypodense subpleural right lower lobe densities. These could reflect scar. Edjan plastic process is considered less likely but is within the differential. A follow-up chest CT in 6 [facility] is recommended. 4. Scattered tree-in-bud nodules within the lungs which are likely infectious or inflammatory. Howeve r, these can be assessed on follow-up CT to ensure resolution. 5. Moderate to marked cardiomegaly. 6. Small right and trace left pleural effusions. ACT 112: Negative or not required by law. Electronically signed by: Holland Barros M.D. 07/27/2021 8:53 AM
[2021-07-27] MEDS ORDERED: AZITHROMYCIN 500 MG in DEXTROSE 5% 250 ML IV ONE (08:55)
[2021-07-27] MEDS ORDERED: cefTRIAXone SODIUM 1,000 MG/50 ML BAG IV STA (08:55)
[2021-07-27 09:03] LABS: Reticulocytes # < 0.02 10^6/uL (0.02-0.10)
[2021-07-27 09:04] LABS: Reticulocyte % < 0.5 % (0.5-2.0)
--- NOTE | 2021-07-27 09:29 | XRay Report ---
XR chest 1V portable CLINICAL HISTORY: Shortness of breath. COMPARISON STUDY: Chest radiograph June 03, 2021. FINDINGS: Cardiomegaly is unchanged. There is no evidence for pulmonary edema. Small right pleural ef fusion is unchanged. There is no pneumothorax. An 8 mm nodular density projects over the right midlun g. No lobar consolidation is present. Degenerative changes of both shoulders are incidentally noted. IMPRESSION: 1. No significant change in a small right pleural effusion. 2. Cardiomegaly without evidence for pulmonary edema. 3. 8 mm nodular density within the right midlung. This may reflect a pulmonary nodule, scarring or mi nimal airspace disease and can be assessed on follow-up CT. ACT 112: Negative or not required by law. Electronically signed by: Holland Barros M.D. 07/27/2021 9:28 AM
[2021-07-27] MEDS ORDERED: SODIUM CHLORIDE 0.9% 250 ML IV PRN (09:33)
[2021-07-27] MEDS ORDERED: VANCOMYCIN CONSULT ACTIVE PRN (10:41)
--- NOTE | 2021-07-27 10:44 | Communication Note ---
Date of Service: July 27, 2021 81-year-old female with history of rheumatoid arthritis on Humira and methotrexate presents with worsening weakness, chills and shortness of breath. Reports some cough. History of shingles on bilateral glutes approximately 1 month ago which has resolved with valacyclovir treatment. Subsequently was treated with doxycycline for presumed superimposed bacterial infection consistent with folliculitis in this area. Days on 07/23 with work-up revealing tonsillar erythema without an exudate. CT of the neck at that time with contrast was obtained which did not show any evidence of deep space infection. There was mention of some swelling of the tonsils bilaterally consistent with tonsillitis. Patient's symptoms were suspected to be viral in nature. A concerning finding was that she had a platelet count of 40 with no history of thrombocytopenia previously. She also was slightly leukopenic with a white blood cell count of 2.53. As she had no bleeding and Covid testing was negative she was sent home with close primary care follow-up in 2 to 3 days and otolaryngology follow-up recommended. She represents today with symptoms above. Throat discomfort is persistent and she feels more physically L. She was slightly tachycardic and was given an IV fluid bolus with blood cultures drawn x2. Her hemoglobin notably dropped from 11.7 a few days ago down to 9.2. Her platelet count dropped from 40 down to 3. There was no evidence of gross bleeding blood per rectum and the patient denied any diarrhea. She is increasingly uremic with a BUN of 36. 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 A CT angiography of the chest did not show any evidence of pulmonary embolism however there was a questionable pneumonia in the left lower lobe. Given the patient's leukopenia and hemodynamics she was started on ceftriaxone and azithromycin for pulmonary coverage. After discussion of the case with Dr. Diallo a transfer to tertiary care was recommended for plasma exchange capabilities not present at this facility. An LDH was normal reticulocyte count normal and an ADA MTS-13 level and peripheral smear were ordered and pending. The patient remains alert and oriented x3 on exam. She is very ill-appearing and weak but in no acute distress. She is strong enough to independently move around in bed. She has no gross focal deficits from a musculoskeletal or neurologic perspective. Cardiac auscultation is normal with S1/S2 heard and no murmurs, gallops or rubs. Pulmonary auscultation is clear throughout without evidence of crackles, wheezing or rales. Normal respiratory effort is observed. Abdomen is tender in the right upper quadrant with all other areas of the abdomen soft. Abdomen is n ondistended and there is no guarding present. She is clinically dry without any evidence of peripheral edema and there is no evidence of peripheral rash. She does have various areas of bruising from peripheral IV attempts and blood draws. She does have some dried blood surrounding her mouth and some bright red blood that is in the back of her throat. She states there was a "blood blister" that seem to pop and she cannot remember when this happened. She is not experiencing pain. She denied any ear pain and there is a left middle ear effusion without purulence behind the tympanic membrane. Right tympanic membrane is pearly without fluid present and no erythema. There is no cervical or submandibular lymphadenopathy and no maxillary or ethmoid sinus tenderness to palpation. Oropharyngeal exam reveals blood as noted above and an enlarged left tonsil with questionable exudate present. Plan is to continue to transfer her to [facility] for hematology evaluation and consideration for plasmapheresis. In discussions with pathology onsite at [facility], FFP as a continuous infusion was considered. She is already receiving 2 units of FFP based on the conversation between the ER physician and the oncologist this morning. We then reached out to [facility] hematology who will be accepting the patient in care. They do not feel this is consistent with TTP as a diagnosis but agree with the transfer. They suggested this may be more of a myelosuppressive process from either recent infections or drugs. Notably she is taking Humira and methotrexate for RA. Leukemic process and/or sepsis is also in the differential. She is continuing broad coverage with antibiotics, replacing azithromycin with doxycycline with high endemic likelihood of rickettsial illness locally. We are also adding vancomycin for proper MRSA coverage. Per hematology recommendations we will transfuse platelets for greater than 10 and if fever present for greater than 20. Will ensure hemoglobin is greater than 7 and trend labs every 12 hours until transfer. Patient lives at home with her son who is aware of the plan. Full code, dispo- PCU pending transfer to [facility]. Accepting physician is Dr. Parker-hospitalist. DO [facility] Hospital[facility]
[2021-07-27] MEDS ORDERED: MAGNESIUM SULFATE 50% 4 GM in SODIUM CHLORIDE 0.9% 1000ML 1,000 ML IV SCH (10:53)
[2021-07-27] MEDS ORDERED: ACETAMINOPHEN 325 MG TAB PO SCH (11:00)
[2021-07-27] MEDS ORDERED: diphenhydrAMINE Capsule 25 MG CAP PO SCH (11:00)
[2021-07-27] MEDS ORDERED: ACETAMINOPHEN 325 MG TAB PO PRN (11:28)
[2021-07-27] MEDS ORDERED: VANCOMYCIN HCL 1,250 MG in SODIUM CHLORIDE 0.9% 250 ML IV ONE (11:30)
--- NOTE | 2021-07-27 11:57 | History & Physical Report ---
Date of Service July 27, 2021 Assessment & Plan (1) Thrombocytopenia: Plan: In the setting of pancytopenia - Unclear etiology at present. Differential includes myelosuppression related to medications or recent infection, TTP, leukemic process. Pt seen and reviewed with Dr. Root, who spoke to ED physician. Plan is for pt to be transferred to [place] but no bed available for 24-36 hrs so will plan to hold in PCU here. ED spoke with hematology on-call here - recommended two units of FFP due to concern for TTP as the etiology of pt's thrombocytopenia. This was started in the ED. Peripheral smear is pending. We then [place] [facility] [place] King Ly[place]. She thinks that TTP is less likely, myelosuppression or leukemic process more likely and recommends platelet transfusion to keep count >10, if febrile >20. Transfuse PRBCs to keep Hgb >7. 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 Follow CBC, coags, and LDH Q12 hours. (2) Acute tonsillitis: Plan: Covered with empiric antibiotics (see plan for #1). Will check Monospot. (3) Sepsis: Plan: On broad spectrum antibiotic coverage. Does not meeting criteria for severe se psis at the time of evaluation, lactate <2. Received one liter of IVF in ED. Receiving two units of FFP, one of platelets, and electrolyte repletion. Will assess need for additional fluid once all of these are complete. Blood and urine culture pending. (4) Leukopenia: (5) Anemia: (6) Rheumatoid arthritis: Plan: Holding Humira and Methotrexate for now (7) Dyslipidemia: Plan: - Continue statin (8) HTN (hypertension): Plan: Currently hypotensive in the ED - will hold amlodipine and lisinopril. Continue beta-noel with holds due to need for rate control for atrial fibrillation (9) Atrial fibrillation: Plan: Continue Metoprolol with holds. Holding aspirin due to #1. (10) GERD (gastroesophageal reflux disease): Plan: - Continue famotidine Plan: Pt seen and reviewed with attending physician, Dr. Root. Plan of care discussed and as outlined above. [place] [facility] [place] higher level of care. Code Status: Full code Francine Giles PA-C History of Present Illness Chief Complaint: Weakness, sore throat Primary Care Provider: Aniyah Lujan DO This is a 81 y/o female with a PMH of RA on methotrexate and Humira, chronic atrial fibrillation but not on AC due to fall risk/hx anemia, HTN, GERD, emphysema, dyslipidemia, pulmonary nodule, hx breast cancer s/p partial mastectomy/Arimidex and osteoporosis who presented to the ED today with progressive weakness and fatigue. At the end of Apr, pt was noted to have a rash on left thigh/buttock that was determined to be shingles - treated with 10 day course of valacyclovir and Humira held due to active infection. Resumed end of May per pt with last dose of Humira about a week ago. At the end of Jun, pt was seen by PCP and noted to have a folliculitis of the left buttock for which she was put on doxycycline. She states that she has been taking this as prescribed but is unsure if it is helping with the rash and it didn't significantly bother her to begin with. Then, pt was originally seen in the ED at this facility on 07/23/21 for a sore throat, which was treated with supportive care and outpatient f/u with PCP/ENT. Labs at that visit showed a drop in her platelet count from normal to 40. She comes back today feeling worse and was noted to have worsening thrombocytopenia, anemia, and leukopenia. Currently, pt reports significant weakness and fatigue. She notes that her oral intake has been decreased due to the sore throat and a loss of appetite. She denies abdominal pain, N/V/D. The sore throat is about the same as when she was here four days ago - no better, no worse. Has noted a mild cough but non-productive. Denies chest pain, palpitations, SOB, wheezing, CARDOZA, Dizziness, fevers. Has noted some chills. Denies any prior transfusion history that she can reall Allergies Allergy/AdvReac Type Severity Reaction Status Date / Time No Known Allergies Allergy NONE Verified 07/23/21 19:18 Home Medications Medication Instructions Recorded Confirmed Type adalimumab 40 mg/0.8 mL 40 mg SUBCUT MONTHLY 09/11/19 07/27/21 History subcutaneous pen kit (Humira Pen) amlodipine 10 mg tablet 10 mg PO DAILY 09/11/19 07/27/21 History aspirin 81 mg tablet,delayed 81 mg PO DAILY 09/11/19 07/27/21 History release (Aspirin Low Dose) famotidine 20 mg tablet 20 mg PO PM 09/11/19 07/27/21 History ferrous sulfate 325 mg (65 mg 325 mg PO DAILY 09/11/19 07/27/21 History iron) tablet (iron) lisinopril 20 mg tablet 20 mg PO DAILY 09/11/19 07/27/21 History methotrexate sodium 2.5 mg tablet 10 mg PO WK 09/11/19 07/27/21 History metoprolol succinate 200 mg 200 mg PO DAILY 09/11/19 07/27/21 History tablet,extended release 24 hr [id number] acid 0.4 1 tab PO DAILY 09/11/19 07/27/21 History mg-lycopene 300 mcg-lutein 250 mcg tablet (Centrum Silver) pravastatin 80 mg tablet 80 mg PO HS 09/11/19 07/27/21 History acetaminophen 500 mg tablet 1,000 mg PO HS 06/03/21 07/27/21 History (Tylenol Extra Strength) alendronate 70 mg tablet 70 mg PO WK 06/03/21 07/27/21 History furosemide 20 mg tablet (Lasix) 20 mg PO DAILY PRN 06/03/21 07/27/21 History doxycycline hyclate 100 mg capsule 100 mg PO BID 07/23/21 07/27/21 History fluticasone propionate 50 2 spray INTRANASAL DAILY 07/27/21 07/27/21 History mcg/actuation nasal spray,suspension folic acid 400 mcg tablet 0.4 mg PO DAILY 07/27/21 07/27/21 History Past Med/Surg History Medical History (Updated 07/27/21 @ 11:52 by Julee Giles PA-C) Atrial fibrillation Not on AC due to hx falls, anemia Dyslipidemia Emphysema, unspecified Gastritis GERD (gastroesophageal reflux disease) History of breast cancer s/p partial mastectomy and Arimidex x5 yrs History of DVT (deep vein thrombosis) HTN (hypertension) Iron deficiency anemia Osteoporosis Pulmonary nodule Rheumatoid arthritis Rheumatoid nodule Surgical History H/O partial mastectomy "04/21/10 Right needle [place] [facility] [place] History of bilateral knee arthroplasty History of carpal tunnel surgery "bilateral" Family History Mother Heart disease Hypertension Father Heart disease Hypertension Sister Diabetes Social History Smoking Status: Never smoker Hx Alcohol Use: No Hx Substance Use: No Preferred Language: Paraguayan Communication Ability: Effective [place] Required: No Beliefs That Will Affect Care: None Current Living Situation: Family Current Living Situation Comment: Pt lives with her son, Jerome Rosario Other Information That Helps Us Care for You: No Feels Safe at Home: Yes Safety Concerns: Feels Safe At This Time Assistive Devices: Glasses Review of Systems Review of Systems: All systems reviewed & are unremarkable except as noted in HPI & below Constitutional: + chills, + fatigue, + malaise, + weakness and + anorexia; no fever Eyes: no diplopia and no worsening vision Ear, Nose, Mouth, Throat: + sore throat Respiratory: + cough (mild); no dyspnea and no wheezing Cardiovascular: no chest pain, no palpitations, no lightheadedness and no edema Gastrointestinal: no abdominal pain, no nausea, no vomiting, no diarrhea/loose stools and no blood in stools Genitourinary: no dysuria and no urinary frequency Musculoskeletal: no back pain and no neck pain Integumentary: + unusual bruising Neurologic: no tremor(s), no seizure-like activity and no headache(s) Psychiatric: no depression and no anxiety Physical Exam Constitutional: + frail appearing and cooperative; no acute distress Eyes: PERRL, conjunctivae normal, anicteric sclerae ENMT: Ears: + TM abnormality (left TM with fluid but no erythema) left tonsil enlarged with ?exudate, blood in posterior oropharynx, dried blood around mouth - no clear source of active bleeding at present Neck: trachea midline No lymphadenopathy or tenderness in the anterior/posterior cervical, pre-auricular, submandibular, submental or supraclavicular chains Respiratory: no respiratory distress and no labored breathing Auscultation: lungs clear to auscultation bilaterally; no rales, no rhonchi and no wheezes Cardiovascular: Rate/Rhythm: + tachycardic and + irregularly irregular Gastrointestinal (Abdomen): Inspection/Auscultation: normal bowel sounds; abdomen not distended Percussion/Palpation: + abdomen tender (mild RUQ), abdomen soft and + tympanic to percussion; no splenomegaly Skin: + dry skin multiple areas of ecchymosis on arms related to blood d raws/lines, left buttock with multiple tiny scabbed areas but no surrounding erythema or warmth Neurologic: moves all extremities; no focal motor deficits Psychiatric: A+Ox3, euthymic affect Results & Data Results & Data ([facility]) Vital Signs (Past 12 Hours) Vital Signs Temp Pulse Pulse Resp BP BP Pulse Ox 07/27/21 11:27 37.9 C H 07/27/21 11:11 37.8 C H 89 15 95/48 L 96 07/27/21 08:00 106 H 18 101/51 L 94 07/27/21 06:00 99 H 22 105/55 L 92 07/27/21 05:08 90 22 100/55 L 94 07/27/21 04:17 87 22 122/48 L 98 07/27/21 04:15 98 07/27/21 02:48 37.0 C 90 18 96/52 L 97 Laboratory Results Laboratory Results - last 24 hr 07/27/21 07/27/21 07/27/21 03:54 03:54 03:54 WBC Cancelled RBC Cancelled Hgb Cancelled Hct Cancelled MCV Cancelled MCH Cancelled MCHC Cancelled RDW Std Deviation Cancelled RDW Coeff of Ezra Cancelled Plt Count Cancelled MPV Cancelled Immature Gran % (Auto) Cancelled Neut % (Auto) Cancelled Lymph % (Auto) Cancelled [place] % (Auto) Cancelled Eos % (Auto) Cancelled Baso % (Auto) Cancelled Reticulocyte % (Auto) Neut # (Auto) Cancelled Lymph # (Auto) Cancelled [place] # (Auto) Cancelled Eos # (Auto) Cancelled Baso # (Auto) Cancelled Reticulocyte # Immature Gran # (Auto) Cancelled Absolute Nucleated RBC Cancelled Nucleated RBC % (auto) Cancelled Neutrophils % (Manual) Cancelled Band Neutrophils % Cancelled Lymphocytes % (Manual) Cancelled Prolymphocyte % Cancelled Reactive Lymphs % (Man) Cancelled Monocytes % (Manual) Cancelled Eosinophils % (Manual) Cancelled Basophils % (Manual) Cancelled Metamyelocytes % (Man) Cancelled Myelocytes % (Man) Cancelled Promyelocytes % (Man) Cancelled Blast Cells % (Manual) Cancelled Plasma Cell % (Manual) Cancelled Other Cells % Cancelled Nucleated RBC % Cancelled Neutrophils # (Manual) Cancelled Band Neutrophils # Cancelled Total Absolute Neuts Cancelled Lymphocytes # (Manual) Cancelled Prolymphocyte # Cancelled Reactive Lymphs # Cancelled Total Abs Lymphocytes Cancelled Monocytes # (Manual) Cancelled Eosinophils # (Manual) Cancelled Basophils # (Manual) Cancelled Metamyelocytes # (Man) Cancelled Myelocytes # (Manual) Cancelled Promyelocytes # (Man) Cancelled Blast Cells # (Man) Cancelled Plasma Cell # (Manual) Cancelled Other Cells # Cancelled Nucleated RBCs # (Man) Cancelled Hypersegmented Neuts Cancelled Hyposegmented Neuts Cancelled Hypogranular Neuts Cancelled Large Granular Lymphs Cancelled # Lrg Granular Lymphs Cancelled Hairy Cells Cancelled Smudge Cells Cancelled Toxic Granulation Cancelled Toxic Vacuolation Cancelled Dohle Bodies Cancelled Ryan Rods Cancelled Platelet Estimate Cancelled Hypogranular Platelets Cancelled Clumped Platelets Cancelled Giant Platelets Cancelled Platelet Satelliting Cancelled RBC Morphology Cancelled Polychromasia Cancelled Hypochromasia Cancelled Poikilocytosis Cancelled Basophilic Stippling Cancelled Anisocytosis Cancelled Microcytosis Cancelled Macrocytosis Cancelled Spherocytes Cancelled Pappenheimer Bodies Cancelled Sickle Cells Cancelled Target Cells Cancelled Tear Drop Cells Cancelled Ovalocytes Cancelled Stomatocytes Cancelled Mccauley-Senoia Bodies Cancelled Echinocytes Cancelled Acanthocytes (Spur) Cancelled Rouleaux Cancelled RBC Agglutinates Cancelled Schistocytes Cancelled RBC Morph Comment Cancelled Peripher Smr Path Cons Sezary Cell Cancelled PT Cancelled INR Cancelled APTT Cancelled PTT Ratio Cancelled Sodium 135 L Potassium Chloride 104 Carbon Dioxide 25 Anion Gap 6.0 BUN 36 H Creatinine 0.58 L Est Cr Clr Drug Dosing 67.9 Est GFR ( Amer) 101.6 Est GFR (Non-Af Amer) 87.7 BUN/Creatinine Ratio 62.1 H Glucose 123 H Lactate Calcium 8.8 Magnesium Total Bilirubin 1.3 H AST ALT 16 Alkaline Phosphatase 77 Lactate Dehydrogenase Troponin I < 0.015 Total Protein 6.7 Albumin 2.2 L Globulin 4.5 H Albumin/Globulin Ratio 0.5 L Procalcitonin Urine Color Urine Appearance Urine pH Ur Specific [place] Urine Protein Urine Glucose (UA) Urine Ketones Urine Blood Urine Nitrite Urine Bilirubin Urine Urobilinogen Ur Leukocyte Esterase SARS-CoV-2 (PCR) Influenza Type A (PCR) Influenza Type B (PCR) RSV (RT-PCR) Blood Type 07/27/21 07/27/21 07/27/21 03:54 04:10 05:01 WBC RBC Hgb Hct MCV MCH MCHC RDW Std Deviation RDW Coeff of Ezra Plt Count MPV Immature Gran % (Auto) Neut % (Auto) Lymph % (Auto) [place] % (Auto) Eos % (Auto) Baso % (Auto) Reticulocyte % (Auto) Neut # (Auto) Lymph # (Auto) [place] # (Auto) Eos # (Auto) Baso # (Auto) Reticulocyte # Immature Gran # (Auto) Absolute Nucleated RBC Nucleated RBC % (auto) Neutrophils % (Manual) Band Neutrophils % Lymphocytes % (Manual) Prolymphocyte % Reactive Lymphs % (Man) Monocytes % (Manual) Eosinophils % (Manual) Basophils % (Manual) Metamyelocytes % (Man) Myelocytes % (Man) Promyelocytes % (Man) Blast Cells % (Manual) Plasma Cell % (Manual) Other Cells % Nucleated RBC % Neutrophils # (Manual) Band Neutrophils # Total Absolute Neuts Lymphocytes # (Manual) Prolymphocyte # Reactive Lymphs # Total Abs Lymphocytes Monocytes # (Manual) Eosinophils # (Manual) Basophils # (Manual) Metamyelocytes # (Man) Myelocytes # (Manual) Promyelocytes # (Man) Blast Cells # (Man) Plasma Cell # (Manual) Other Cells # Nucleated RBCs # (Man) Hypersegmented Neuts Hyposegmented Neuts Hypogranular Neuts Large Granular Lymphs # Lrg Granular Lymphs Hairy Cells Smudge Cells Toxic Granulation Toxic Vacuolation Dohle Bodies Ryan Rods Platelet Estimate Hypogranular Platelets Clumped Platelets Giant Platelets Platelet Satelliting RBC Morphology Polychromasia Hypochromasia Poikilocytosis Basophilic Stippling Anisocytosis Microcytosis Macrocytosis Spherocytes Pappenheimer Bodies Sickle Cells Target Cells Tear Drop Cells Ovalocytes Stomatocytes Mccauley-Senoia Bodies Echinocytes Acanthocytes (Spur) Rouleaux RBC Agglutinates Schistocytes RBC Morph Comment Peripher Smr Path Cons Sezary Cell PT INR APTT PTT Ratio Sodium Potassium Chloride Carbon Dioxide Anion Gap BUN Creatinine Est Cr Clr Drug Dosing Est GFR ( Amer) Est GFR (Non-Af Amer) BUN/Creatinine Ratio Glucose Lactate 1.7 Calcium Magnesium Total Bilirubin AST ALT Alkaline Phosphatase Lactate Dehydrogenase Troponin I Total Protein Albumin Globulin Albumin/Globulin Ratio Procalcitonin Cancelled Urine Color Urine Appearance Urine pH Ur Specific [place] Urine Protein Urine Glucose (UA) Urine Ketones Urine Blood Urine Nitrite Urine Bilirubin Urine Urobilinogen Ur Leukocyte Esterase SARS-CoV-2 (PCR) NEGATIVE Influenza Type A (PCR) Negative Influenza Type B (PCR) Negative RSV (RT-PCR) Negative Blood Type 07/27/21 07/27/21 07/27/21 05:46 05:46 05:46 WBC Cancelled RBC Cancelled Hgb Cancelled Hct Cancelled MCV Cancelled MCH Cancelled MCHC Cancelled RDW Std Deviation Cancelled RDW Coeff of Ezra Cancelled Plt Count Cancelled MPV Cancelled Immature Gran % (Auto) Cancelled Neut % (Auto) Cancelled Lymph % (Auto) Cancelled [place] % (Auto) Cancelled Eos % (Auto) Cancelled Baso % (Auto) Cancelled Reticulocyte % (Auto) Neut # (Auto) Cancelled Lymph # (Auto) Cancelled [place] # (Auto) Cancelled Eos # (Auto) Cancelled Baso # (Auto) Cancelled Reticulocyte # Immature Gran # (Auto) Cancelled Absolute Nucleated RBC Cancelled Nucleated RBC % (auto) Cancelled Neutrophils % (Manual) Cancelled Band Neutrophils % Cancelled Lymphocytes % (Manual) Cancelled Prolymphocyte % Cancelled Reactive Lymphs % (Man) Cancelled Monocytes % (Manual) Cancelled Eosinophils % (Manual) Cancelled Basophils % (Manual) Cancelled Metamyelocytes % (Man) Cancelled Myelocytes % (Man) Cancelled Promyelocytes % (Man) Cancelled Blast Cells % (Manual) Cancelled Plasma Cell % (Manual) Cancelled Other Cells % Cancelled Nucleated RBC % Cancelled Neutrophils # (Manual) Cancelled Band Neutrophils # Cancelled Total Absolute Neuts Cancelled Lymphocytes # (Manual) Cancelled Prolymphocyte # Cancelled Reactive Lymphs # Cancelled Total Abs Lymphocytes Cancelled Monocytes # (Manual) Cancelled Eosinophils # (Manual) Cancelled Basophils # (Manual) Cancelled Metamyelocytes # (Man) Cancelled Myelocytes # (Manual) Cancelled Promyelocytes # (Man) Cancelled Blast Cells # (Man) Cancelled Plasma Cell # (Manual) Cancelled Other Cells # Cancelled Nucleated RBCs # (Man) Cancelled Hypersegmented Neuts Cancelled Hyposegmented Neuts Cancelled Hypogranular Neuts Cancelled Large Granular Lymphs Cancelled # Lrg Granular Lymphs Cancelled Hairy Cells Cancelled Smudge Cells Cancelled Toxic Granulation Cancelled Toxic Vacuolation Cancelled Dohle Bodies Cancelled Ryan Rods Cancelled Platelet Estimate Cancelled Hypogranular Platelets Cancelled Clumped Platelets Cancelled Giant Platelets Cancelled Platelet Satelliting Cancelled RBC Morphology Cancelled Polychromasia Cancelled Hypochromasia Cancelled Poikilocytosis Cancelled Basophilic Stippling Cancelled Anisocytosis Cancelled Microcytosis Cancelled Macrocytosis Cancelled Spherocytes Cancelled Pappenheimer Bodies Cancelled Sickle Cells Cancelled Target Cells Cancelled Tear Drop Cells Cancelled Ovalocytes Cancelled Stomatocytes Cancelled Mccauley-Senoia Bodies Cancelled Echinocytes Cancelled Acanthocytes (Spur) Cancelled Rouleaux Cancelled RBC Agglutinates Cancelled Schistocytes Cancelled RBC Morph Comment Cancelled Peripher Smr Path Cons Sezary Cell Cancelled PT 11.3 INR 1.1 APTT 31.9 H PTT Ratio 1.2 Sodium Potassium 3.2 L Chloride Carbon Dioxide Anion Gap BUN Creatinine Est Cr Clr Drug Dosing Est GFR ( Amer) Est GFR (Non-Af Amer) BUN/Creatinine Ratio Glucose Lactate Calcium Magnesium 1.4 L Total Bilirubin AST 9 L ALT Alkaline Phosphatase Lactate Dehydrogenase Troponin I Total Protein Albumin Globulin Albumin/Globulin Ratio Procalcitonin Urine Color Urine Appearance Urine pH Ur Specific [place] Urine Protein Urine Glucose (UA) Urine Ketones Urine Blood Urine Nitrite Urine Bilirubin Urine Urobilinogen Ur Leukocyte Esterase SARS-CoV-2 (PCR) Influenza Type A (PCR) Influenza Type B (PCR) RSV (RT-PCR) Blood Type 07/27/21 07/27/21 07/27/21 05:46 05:46 06:49 WBC RBC Hgb Hct MCV MCH MCHC RDW Std Deviation RDW Coeff of Ezra Plt Count MPV Immature Gran % (Auto) Neut % (Auto) Lymph % (Auto) [place] % (Auto) Eos % (Auto) Baso % (Auto) Reticulocyte % (Auto) Neut # (Auto) Lymph # (Auto) [place] # (Auto) Eos # (Auto) Baso # (Auto) Reticulocyte # Immature Gran # (Auto) Absolute Nucleated RBC Nucleated RBC % (auto) Neutrophils % (Manual) Band Neutrophils % Lymphocytes % (Manual) Prolymphocyte % Reactive Lymphs % (Man) Monocytes % (Manual) Eosinophils % (Manual) Basophils % (Manual) Metamyelocytes % (Man) Myelocytes % (Man) Promyelocytes % (Man) Blast Cells % (Manual) Plasma Cell % (Manual) Other Cells % Nucleated RBC % Neutrophils # (Manual) Band Neutrophils # Total Absolute Neuts Lymphocytes # (Manual) Prolymphocyte # Reactive Lymphs # Total Abs Lymphocytes Monocytes # (Manual) Eosinophils # (Manual) Basophils # (Manual) Metamyelocytes # (Man) Myelocytes # (Manual) Promyelocytes # (Man) Blast Cells # (Man) Plasma Cell # (Manual) Other Cells # Nucleated RBCs # (Man) Hypersegmented Neuts Hyposegmented Neuts Hypogranular Neuts Large Granular Lymphs # Lrg Granular Lymphs Hairy Cells Smudge Cells Toxic Granulation Toxic Vacuolation Dohle Bodies Ryan Rods Platelet Estimate Hypogranular Platelets Clumped Platelets Giant Platelets Platelet Satelliting RBC Morphology Polychromasia Hypochromasia Poikilocytosis Basophilic Stippling Anisocytosis Microcytosis Macrocytosis Spherocytes Pappenheimer Bodies Sickle Cells Target Cells Tear Drop Cells Ovalocytes Stomatocytes Mccauley-Senoia Bodies Echinocytes Acanthocytes (Spur) Rouleaux RBC Agglutinates Schistocytes RBC Morph Comment Peripher Smr Path Cons Sezary Cell PT INR APTT PTT Ratio Sodium Potassium Chloride Carbon Dioxide Anion Gap BUN Creatinine Est Cr Clr Drug Dosing Est GFR ( Amer) Est GFR (Non-Af Amer) BUN/Creatinine Ratio Glucose Lactate Calcium Magnesium Total Bilirubin AST ALT Alkaline Phosphatase Lactate Dehydrogenase 112 Troponin I Total Protein Albumin Globulin Albumin/Globulin Ratio Procalcitonin 0.11 Urine Color Yellow Urine Appearance Clear Urine pH 5.0 Ur Specific [place] > 1.045 H Urine Protein Negative Urine Glucose (UA) Negative Urine Ketones Negative Urine Blood Negative Urine Nitrite Negative Urine Bilirubin Negative Urine Urobilinogen Negative Ur Leukocyte Esterase Negative SARS-CoV-2 (PCR) Influenza Type A (PCR) Influenza Type B (PCR) RSV (RT-PCR) Blood Type 07/27/21 07/27/21 07/27/21 07:21 07:21 07:21 WBC 0.69 L* RBC 2.81 L Hgb 9.2 L Hct 27.3 L MCV 97.2 MCH 32.7 MCHC 33.7 RDW Std Deviation 52.9 H RDW Coeff of Ezra 14.9 H Plt Count 3 L* MPV Immature Gran % (Auto) 2.9 Neut % (Auto) 2.9 Lymph % (Auto) 91.3 [place] % (Auto) 0.0 Eos % (Auto) 2.9 Baso % (Auto) 0.0 Reticulocyte % (Auto) < 0.5 L Neut # (Auto) 0.02 L* Lymph # (Auto) 0.63 L [place] # (Auto) 0.00 L Eos # (Auto) 0.02 Baso # (Auto) 0.00 Reticulocyte # < 0.02 L Immature Gran # (Auto) 0.02 Absolute Nucleated RBC Nucleated RBC % (auto) Neutrophils % (Manual) Band Neutrophils % Lymphocytes % (Manual) Prolymphocyte % Reactive Lymphs % (Man) Monocytes % (Manual) Eosinophils % (Manual) Basophils % (Manual) Metamyelocytes % (Man) Myelocytes % (Man) Promyelocytes % (Man) Blast Cells % (Manual) Plasma Cell % (Manual) Other Cells % Nucleated RBC % Neutrophils # (Manual) Band Neutrophils # Total Absolute Neuts Lymphocytes # (Manual) Prolymphocyte # Reactive Lymphs # Total Abs Lymphocytes Monocytes # (Manual) Eosinophils # (Manual) Basophils # (Manual) Metamyelocytes # (Man) Myelocytes # (Manual) Promyelocytes # (Man) Blast Cells # (Man) Plasma Cell # (Manual) Other Cells # Nucleated RBCs # (Man) Hypersegmented Neuts Hyposegmented Neuts Hypogranular Neuts Large Granular Lymphs # Lrg Granular Lymphs Hairy Cells Smudge Cells Toxic Granulation Toxic Vacuolation Dohle Bodies Ryan Rods Platelet Estimate SIGNIFIC DECREASED Hypogranular Platelets Clumped Platelets Giant Platelets Platelet Satelliting RBC Morphology Polychromasia Hypochromasia Poikilocytosis Basophilic Stippling Anisocytosis Microcytosis Macrocytosis Spherocytes Pappenheimer Bodies Sickle Cells Target Cells Tear Drop Cells Ovalocytes Stomatocytes Mccauley-Senoia Bodies Echinocytes Acanthocytes (Spur) Rouleaux RBC Agglutinates Schistocytes RBC Morph Comment Peripher Smr Path Cons Cancelled Sezary Cell PT INR APTT PTT Ratio Sodium Potassium Chloride Carbon Dioxide Anion Gap BUN Creatinine Est Cr Clr Drug Dosing Est GFR ( Amer) Est GFR (Non-Af Amer) BUN/Creatinine Ratio Glucose Lactate Calcium Magnesium Total Bilirubin AST ALT Alkaline Phosphatase Lactate Dehydrogenase Troponin I Total Protein Albumin Globulin Albumin/Globulin Ratio Procalcitonin Urine Color Urine Appearance Urine pH Ur Specific [place] Urine Protein Urine Glucose (UA) Urine Ketones Urine Blood Urine Nitrite Urine Bilirubin Urine Urobilinogen Ur Leukocyte Esterase SARS-CoV-2 (PCR) Influenza Type A (PCR) Influenza Type B (PCR) RSV (RT-PCR) Blood Type O Positive Diagnostic Findings Chest X-ray 07/27/21 - IMPRESSION:1. No significant change in a small right pleural effusion. 2. Cardiomegaly without evidence for pulmonary edema. 3. 8 mm nodular density within the right midlung. This may reflect a pulmonary nodule, scarring or minimal airspace disease and can be assessed on follow-up CT. Chest CTA 07/27/21 - IMPRESSION:1. No pulmonary emboli identified. 2. Multifocal groundglass opacities within the left lower lobe. The findings favor an infectious process. 3. A few indeterminate hypodense subpleural right lower lobe densities. These could reflect scar. Neoplastic process is considered less likely but is within the differential. A follow-up chest CT in 6 months is recommended. 4. Scattered tree-in-bud nodules within the lungs which are likely infectious or inflammatory. However, these can be assessed on follow-up CT to ensure resolution. 5. Moderate to marked cardiomegaly. 6. Small right and trace left pleural effusions. Medications Administered Acetaminophen (Acetaminophen 325 Mg Tab) 650 mg PO PRE-TREAT@1100 SKYLER Stop: 07/27/21 15:00 Last Admin: 07/27/21 11:04 Dose: 650 mg Documented by: [id number] Diphenhydramine HCl (Diphenhydramine Capsule 25 Mg Cap) 12.5 mg PO PRE- TREAT@1100 SKYLER Stop: 07/27/21 15:00 Last Admin: 07/27/21 11:04 Dose: 12.5 mg Documented by: [id number] Discontinued Medications Sodium Chloride (Nss 1000ml) 1,000 mls @ 999 mls/hr IV .Q1H1M ONE Stop: 07/27/21 04:54 Last Infusion: 07/27/21 06:09 Dose: 0 mls/hr Documented by: [id number] Admin: 07/27/21 05:08 Dose: 999 mls/hr Documented by: [id number] Ceftriaxone Sodium (Rocephin) 1,000 mg in 50 mls @ 100 mls/hr IV NOW STA Stop: 07/27/21 09:24 Last Admin: 07/27/21 10:20 Dose: 100 mls/hr Documented by: [id number] Azithromycin 500 mg/ Dextrose 255 mls @ 125 mls/hr IV ONE ONE Stop: 07/27/21 10:57 Last Admin: 07/27/21 10:51 Dose: 125 mls/hr Documented by: [id number] Ioversol (Optiray 320 125ml) 120 ml IV ONCE ONE Stop: 07/27/21 06:23 Last Admin: 07/27/21 06:14 Dose: 120 ml Documented by: [id number] Potassium Chloride (Potassium Chloride Crtab 20 Meq Tabcr) 40 meq PO NOW STA Stop: 07/27/21 07:26 Last Admin: 07/27/21 08:30 Dose: 40 meq Documented by: [id number] Code Status & VTE Plan VTE Prophylaxis Plan VTE Prophylaxis will be ordered: Yes Supervising Physician Co-Signing Physician Notes I have seen and examined the patient and have discussed the case with the provider above. I agree with the assessment and plan as stated above with the following exceptions. 81-year-old female with history of rheumatoid arthritis on Humira and meth otrexate presents with worsening weakness, chills and shortness of breath. Reports some cough. History of shingles on bilateral glutes approximately 1 month ago which has resolved with valacyclovir treatment. Subsequently was treated with doxycycline for presumed superimposed bacterial infection consistent with folliculitis in this area. Days on 07/23 with work-up revealing tonsillar erythema without an exudate. CT of the neck at that time with contrast was obtained which did not show any evidence of deep space infection. There was mention of some swelling of the tonsils bilaterally consistent with tonsillitis. Patient's symptoms were suspected to be viral in nature. A concerning finding was that she had a platelet count of 40 with no history of thrombocytopenia previously. She also was slightly leukopenic with a white blood cell count of 2.53. As she had no bleeding and Covid testing was negative she was sent home with close primary care follow-up in 2 to 3 days and otolaryng ology follow-up recommended. She represents today with symptoms above. Throat discomfort is persistent and she feels more physically L. She was slightly tachycardic and was given an IV fluid bolus with blood cultures drawn x2. Her hemoglobin notably dropped from 11.7 a few days ago down to 9.2. Her platelet count dropped from 40 down to 3. There was no evidence of gross bleeding blood per rectum and the patient denied any diarrhea. She is increasingly uremic with a BUN of 36. 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 A CT angiography of the chest did not show any evidence of pulmonary embolism however there was a questionable pneumonia in the left lower lobe. Given the patient's leukopenia and hemodynamics she was started on ceftriaxone and azithromycin for pulmonary coverage. After discussion of the case with Dr. Diallo a transfer to tertiary care was recommended for plasma exchange capabilities not present at this facility. An LDH was normal reticulocyte count normal and an ADA MTS-13 level and peripheral smear were ordered and pending. The patient remains alert and oriented x3 on exam. She is very ill-appearing and weak but in no acute distress. She is strong enough to independently move around in bed. She has no gross focal deficits from a musculoskeletal or neurologic perspective. Cardiac auscultation is normal with S1/S2 heard and no murmurs, gallops or rubs. Pulmonary auscultation is clear throughout without evidence of crackles, wheezing or rales. Normal respiratory effort is observed. Abdomen is tender in the right upper quadrant with all other areas of the abdomen soft. Abdomen is nondistended and there is no guarding present. She is clinically dry without any evidence of peripheral edema and there is no evidence of peripheral rash. She does have various areas of bruising from peripheral IV attempts and blood draws. She does have some dried blood surrounding her mouth and some bright red blood that is in the back of her throat. She states there was a "blood blister" that seem to pop and she cannot remember when this happened. She is not experiencing pain. She denied any ear pain and there is a left middle ear effusion without purulence behind the tympanic membrane. Right tympanic membrane is pearly without fluid present and no erythema. There is no cervical or submandibular lymphadenopathy and no maxillary or ethmoid sinus tenderness to palpation. Oropharyngeal exam reveals blood as noted above and an enlarged left tonsil with questionable exudate present. Plan is [place] continue [place] [facility] [place] and consideration for plasmapheresis. In discussions with pathology onsite at [facility], FFP as a continuous infusion was considered. She is already receiving 2 units of FFP based on the conversation between the ER physician and the oncologist this morning. We then reached out [place] [facility] [place] will be [place] the patient in care. They do not feel this is consistent with TTP as a diagnosis but agree with the transfer. They suggested this may be more of a myelosuppressive process from either recent infections or drugs. Notably she is taking Humira and methotrexate for RA. Leukemic process and/or sepsis is also in the differential. She is continuing broad coverage with antibiotics, replacing azithromycin with doxycycline with high endemic likelihood of rickettsial illness locally. We are also adding vancomycin for proper MRSA coverage. Per hematology recommendations we will transfuse platelets for greater than 10 and if fever present for greater than 20. Will ensure hemoglobin is greater than 7 and trend labs every 12 hours until transfer. Patient lives at home with her son who is aware of the plan. Full code, dispo-PCU pending [place] [facility] [place] Accepting physician is Dr. Parker- hospitalist. DO [facility] (1) Acute tonsillitis Pharyngitis/tonsillitis etiology: unspecified etiology Qualified Code(s): J03.90 - Acute tonsillitis, unspecified (2) Anemia Anemia type: other cause Other causes of anemia: other cause, not classified Qualified Code(s): D64.89 - Other specified anemias (3) Atrial fibrillation Atrial fibrillation type: unspecified Qualified Code(s): I48.91 - Unspecified atrial fibrillation (4) Leukopenia Leukopenia type: neutropenia Neutropenia type: unspecified Qualified Code(s): D70.9 - Neutropenia, unspecified
--- NOTE | 2021-07-27 13:07 | Electrocardiogram Report ---
Test Reason : Blood Pressure : / mmHG Vent. Rate : 094 BPM Atrial Rate : 096 BPM P-R Int : 000 ms QRS Dur : 080 ms QT Int : 376 ms P-R-T Axes : 000 056 -42 degrees QTc Int : 470 ms Poor data quality, interpretation may be adversely affected Atrial fibrillation Abnormal ECG When compared with ECG of 03-JUN-2021 20:22, Inverted T waves have replaced nonspecific T wave abnormality in Inferior leads Confirmed by Ahsan Delacruz ([id number]) on 07/27/2021 1:07:14 PM Referred By: REFERRED SELF Confirmed By:Ahsan Delacruz
[2021-07-27] MEDS: DOXYCYCLINE HYCLATE 100 MG in DEXTROSE 5% 100 ML IV SCH (14:18)
[2021-07-27 18:43] LABS: BUN Creatinine Ratio 50.5 (10-20); Calcium 8.5 mg/dl (8.5-10.1); Creatinine Clr Calc Pharmacy 82.1 ml/min; Est GFR (African American) 108.1 ml/min; Est GFR (Non-African American) 93.3 ml/min; Magnesium 1.6 mg/dl (1.8-2.4); Potassium 3.3 mmol/L (3.5-5.1)
[2021-07-27 18:49] LABS: Monotest Negative (Negative)
[2021-07-27 18:51] LABS: Hematocrit (blood only) 26.8 % (37-47); Mean Corpuscular Hgb Conc 33.6 g/dL (32-36); Mean Corpuscular Volume 98.2 fL (80-100); Platelet Count 2 K/uL (130-400); Platelet Estimate SIGNIFIC DECREASED (Normal); RDW Coefficient of Variation 15.1 % (11.5-14.5); RDW Standard Deviation 53.2 fL (36.4-46.3); Red Blood Count 2.73 M/uL (4.2-5.4); White Blood Count 0.99 K/uL (4.8-10.8)
[2021-07-27 18:54] LABS: Fibrinogen 480 mg/dl (184-400); INR 1.1 (0.9-1.1); Partial Thromboplastin Ratio 1.3; Partial Thromboplastin Time 32.9 Seconds (21.0-31.0); Prothrombin Time 10.9 Seconds (9.0-12.0)
[2021-07-27 19:19] LABS: Lyme Ab IgG w/WB Rflx Negative (Negative); Lyme Ab IgM w/WB Rflx Negative (Negative)
--- NOTE | 2021-07-27 19:23 | Pharmacy Report ---
Pharmacy Vanc AUC Short Note - Date of Service July 27, 2021 - Assessment & Plan Assessment 81 year old F receiving empiric vancomycin + ceftriaxone + doxycycline in the setting of fever, weakness, chills, SOB and pancytopenia * Patient is on immunosuppressive agents for RA; Humira and methotrexate * History of shingles on bilateral glutes approximately 1 month ago which has resolved with valacyclovir treatment. * Recent treatment with doxycycline for presumed superimposed bacterial infec tion consistent with folliculitis in this area. Plan Vancomycin * Loading dose: 1250 mg (22 mg/kg) * Maintenance dose: 750 mg (13 mg/kg) IV q12h * Will target goal AUC/ANNE of 400-600 mg/L.hr * AUC/ANNE is the preferred PK/PD target for vancomycin * AUC guided dosing is effective and associated with decreased risk of nephrotoxicity compared to traditional trough targets * Vanc level ordered for 07/29 @ 1130 Pharmacy will continue to follow and will adjust dose/frequency as necessary. Thank you.
[2021-07-27] MEDS: FAMOTIDINE 20 MG TAB PO SCH (20:04)
[2021-07-27] MEDS: PRAVASTATIN SOD 40 MG TAB PO SCH (20:04)
[2021-07-27] MEDS ORDERED: cefTRIAXone SODIUM 1,000 MG in DEXTROSE 5% 50 ML IV SCH (21:00)
[2021-07-28] MEDS ORDERED: VANCOMYCIN HCL 750 MG in SODIUM CHLORIDE 0.9% 250 ML IV SCH
[2021-07-28 05:08] LABS: INR 1.1 (0.9-1.1); Partial Thromboplastin Ratio 1.3; Prothrombin Time 11.2 Seconds (9.0-12.0)
[2021-07-28 05:17] LABS: Hematocrit (blood only) 23.7 % (37-47); Hemoglobin 7.9 g/dL (12.0-16.0); Mean Corpuscular Hemoglobin 33.1 pg (25-34); Mean Corpuscular Hgb Conc 33.3 g/dL (32-36); Mean Corpuscular Volume 99.2 fL (80-100); Mean Platelet Volume 12.1 fL (7.4-10.4); Platelet Count 20 K/uL (130-400); RDW Coefficient of Variation 15.2 % (11.5-14.5); RDW Standard Deviation 54.2 fL (36.4-46.3); Red Blood Count 2.39 M/uL (4.2-5.4); White Blood Count 0.75 K/uL (4.8-10.8)
[2021-07-28 05:25] LABS: BUN Creatinine Ratio 51.3 (10-20); Creatinine Clr Calc Pharmacy 96.1 ml/min; Est GFR (African American) 113.9 ml/min; Est GFR (Non-African American) 98.3 ml/min; Magnesium 2.7 mg/dl (1.8-2.4); Potassium 3.9 mmol/L (3.5-5.1)
[2021-07-28 05:45] LABS: RBC Morphology Unremarkable
[2021-07-28 05:50] LABS: ALC (manual) 0.66 K/uL (1.2-3.4); Eosinophils # (manual) 0.09 K/uL (0-0.5); Eosinophils % (manual) 12.2 %; Lymphocytes # (manual) 0.66 K/uL (1.2-3.4); Lymphocytes % (manual) 87.8 %
--- NOTE | 2021-07-28 08:08 | Ultrasound Report ---
US abdomen limited CLINICAL HISTORY: Evaluate for hepatosplenomegaly.. COMPARISON: 03/14/2014 TECHNIQUE: Multiple grayscale and color images of the right upper quadrant of the abdomen. FINDINGS: This is a limited examination as the patient refused further imaging after evaluation of t he liver. Pancreas: Not imaged Liver: The liver is homogeneous in echogenicity There is no evidence for a focal mass. There is no in trahepatic biliary duct dilatation. Gallbladder: Not imaged Common Bile Duct: (CBD): Not imaged Inferior Vena Cava (IVC): Not imaged Right kidney: Not imaged not imaged IMPRESSION: Limited examination as patient refused further imaging after scanning the liver. There i s no evidence for hepatomegaly. The spleen was not imaged. ACT 112: Negative or not required by law. Electronically signed by: Rony Elliott M.D. 07/28/2021 8:06 AM
[2021-07-28] MEDS: CEFEPIME 2,000 MG in SYRINGE 0 ML IV SCH ×2 (10:59→17:47)
[2021-07-28] MEDS: DOXYCYCLINE HYCLATE 100 MG in DEXTROSE 5% 100 ML IV SCH ×3 (10:59→23:08)
[2021-07-28] MEDS: METOPROLOL SUCC 50MG EXT REL TAB PO SCH (10:59)
[2021-07-28] MEDS: FOLIC ACID 400 MCG TAB PO SCH (11:00)
[2021-07-28] MEDS: VANCOMYCIN HCL 1,000 MG in SODIUM CHLORIDE 0.9% 250 ML IV SCH ×2 (13:05→23:09)
--- NOTE | 2021-07-28 17:52 | Hospitalist Progress Note ---
Date of Service July 28, 2021 Assessment & Plan (1) Pancytopenia: Plan: Acquired pancytopenia likely secondary to infection as patient was recently infected with herpes zoster a few weeks ago and is in immunosuppressed state. Other possible triggers of pancytopenia are Humira and methotrexate although patient has been taking these long-term or other insult to bone marrow. Malignancy is always in the differential and this differential list is not exhaustive. She is improved with broad-spectrum antibiotics and platelets have improved to 20 after platelet transfusion yesterday. Although she has excessive bruising this is expected as her platelets were 3 yesterday. Overnight she was unsettled and now has intermittent confusion. She reports biting the inside of her cheek when she is upset and the inside of her bucca mucosa appears well bitten with some bleeding present. Oropharynx appears improved with persistently swollen tonsils. No exudates are seen. She clinically appears improved although is upset and agitated, likely driven by some confusion. SARS-CoV-2 PCR negative, flu negative, Lyme negative, RSV negative with other serologies pending. Peripheral smear will reveals no evidence of schistocytes or spherocytes noted. Immature granulocytes including blasts were not identified. Platelets were markedly decreased in number however atypical giant forms were not evident. Reticulocyte count was low. There were no overt changes of leukemia, myelodysplasia or hemolysis noted and the findings were not consistent with thrombotic thrombocytopenic purpura and suggest a primary bone marrow process such as aplastic anemia instead. Patient still awaiting transfer to [facility] and will process through this when bed available. (2) Sepsis: Plan: On broad spectrum antibiotic coverage. Possible sepsis on admission, resuscitated and improved at this point. She remains afebrile for approximately 24 hours now. Continue broad-spectrum antibiotics pending additional culture results and clinical improvement. (3) Rheumatoid arthritis: Plan: Holding Humira and Methotrexate for now (4) Dyslipidemia: Plan: - Continue statin (5) HTN (hypertension): Plan: Amlodipine and lisinopril held in setting of relative hypotension on admission. Continue beta-noel with hold parameters due to need for rate control for atrial fibrillation (6) Atrial fibrillation: Plan: Aspirin was stopped, continue metoprolol. (7) DVT prophylaxis: Plan: SCDs Full code Disposition-to [facility] once bed available DO [facility] and [facility]ticipated Discharge Date Admission Date: July 27, 2021 Subjective 81-year-old female with a history of immunosuppression on methotrexate and Humir a presented with progressive weakness and fatigue as well as dyspnea. Found to have new onset pancytopenia with critically low cell lines. The patient has been confused overnight and multiple bruises have popped up on her chest and arms. She also has a well bitten inside of her left cheek likely as a result of confusion and anxiety. Patient reports biting her cheek when she is anxious. Fresh blood was seen in the back of her throat from this buccal mucosa. She is otherwise swallowing fine, afebrile and feeling better than yesterday. She does have some intermittent confusion and is somewhat agitated stating she thought she went to [facility] and came back to [place]. She is easily redirectable. Review of Systems Review of Systems: All systems were reviewed and negative except as indicated above Physical Exam Physical Exam: CONSTITUTIONAL: elderly, frail, vitals as above, NAD but appears irritated. EYES: normal conjunctivae, no scleral icterus ENT: external ear and nose normal, MMM, upper dentures are in place. NECK: trachea midline RESPIRATORY: clear to auscultation bilaterally, no crackles, rales or wheezes, normal respiratory effort CARDIOVASCULAR: regular rate and rhythm, S1 and 2 heard without murmurs, gallops or rubs, no JVD, no peripheral edema GASTROINTESTINAL: soft, nontender, no hepatomegaly, no guarding MUSCULOSKELETAL: strength 5/5 throughout, head is normocephalic and atraumatic, neck supple, normal palpation of chest wall without tenderness SKIN: warm and dry, multiple areas of ecchymosis along her chest and on her arms and upper back. NEUROLOGIC: CN 2-12 grossly intact, normal cognition, normal speech, no tremor, no gross focal deficit PSYCHIATRIC: alert cooperative and oriented to person, place and time. Agitated at times, appears intermittently confused about what is going on. Results & Data Results & Data ([facility]) Vital Signs (Past 12 Hours) Vital Signs Temp Pulse Resp BP Pulse Ox 07/28/21 10:51 37.5 C 98 H 22 106/57 L 96 Laboratory Results Short CBC 07/27/21 07/28/21 Range/Units 18:05 04:40 WBC 0.99 L* 0.75 L* (4.8-10.8) K/uL Hgb 9.0 L 7.9 L (12.0-16.0) g/dL Hct 26.8 L 23.7 L (37-47) % Plt Count 2 L* 20 L* D (130-400) K/uL BMP 07/27/21 07/28/21 18:05 04:40 Sodium 138 139 Potassium 3.3 L 3.9 D Chloride 105 110 H Carbon Dioxide 26 25 BUN 24 H 21 H Creatinine 0.48 L 0.41 L Glucose 100 H 99 Calcium 8.5 8.0 L Diagnostic Findings Abdomen Ultrasound 07/27/21 19:00 US abdomen limited CLINICAL HISTORY: Evaluate for hepatosplenomegaly.. COMPARISON: 03/14/2014 TECHNIQUE: Multiple grayscale and color images of the right upper quadrant of the abdomen. FINDINGS: This is a limited examination as the patient refused further imaging after evaluation of the liver. Pancreas: Not imaged Liver: The liver is homogeneous in echogenicity There is no evidence for a focal mass. There is no intrahepatic biliary duct dilatation. Gallbladder: Not imaged Common Bile Duct: (CBD): Not imaged Inferior Vena Cava (IVC): Not imaged Right kidney: Not imaged not imaged IMPRESSION: Limited examination as patient refused further imaging after scanning the liver. There is no evidence for hepatomegaly. The spleen was not imaged. ACT 112: Negative or not required by law. Electronically signed by: Rony Elliott M.D. 07/28/2021 8:06 AM Medications Administered Current Inpatient Medications Acetaminophen (Acetaminophen 325 Mg Tab) 650 mg PO Q4H PRN PRN Reason: Pain or Fever Stop: 08/26/21 11:27 Famotidine (Famotidine 20 Mg Tab) 20 mg PO PM SKYLER Stop: 08/26/21 20:59 Last Admin: 07/27/21 20:04 Dose: 20 mg Documented by: Folic Acid (Folic Acid 400 Mcg Tab) 400 mcg PO DAILY SKYLER Stop: 08/27/21 08:59 Last Admin: 07/28/21 11:00 Dose: 400 mcg Documented by: Doxycycline Hyclate 100 mg/ (Dextrose) 110 mls @ 50 mls/hr IV Q12H SKYLER Stop: 08/03/21 11:27 Last Infusion: 07/28/21 13:05 Dose: Infused Documented by: Cefepime HCl 2,000 mg/ Syringe 20 mls @ 5 mls/min IV Q8H [facility]; Protocol Stop: 08/04/21 09:59 Last Admin: 07/28/21 10:59 Dose: 5 mls/min Documented by: Vancomycin HCl 1,000 mg/ (Sodium Chloride) 270 mls @ 200 mls/hr IV Q12H [facility] Stop: 08/04/21 11:59 Last Infusion: 07/28/21 14:35 Dose: Infused Documented by: Metoprolol Succinate (Metoprolol Succ 50mg Ext Rel Tab) 200 mg PO DAILY [facility] Stop: 08/27/21 08:59 Last Admin: 07/28/21 10:59 Dose: 200 mg Documented by: Miscellaneous Information (Vancomycin Consult Active) 0 ea N/A UD PRN PRN Reason: Consult Stop: 08/26/21 10:40 Pravastatin Sodium (Pravastatin Sod 40 Mg Tab) 80 mg PO HS [facility] Stop: 08/26/21 20:59 Last Admin: 07/27/21 20:04 Dose: 80 mg Documented by: (1) Atrial fibrillation Atrial fibrillation type: unspecified Qualified Code(s): I48.91 - Unspecified atrial fibrillation
[2021-07-28 18:23] LABS: SARS CoV2 RNA(COVID-19) InHosp NEGATIVE (Negative)
[2021-07-28 18:26] LABS: INR 1.1 (0.9-1.1); Partial Thromboplastin Ratio 1.3; Partial Thromboplastin Time 33.3 Seconds (21.0-31.0); Prothrombin Time 10.9 Seconds (9.0-12.0)
[2021-07-28] MEDS: PRAVASTATIN SOD 40 MG TAB PO SCH (19:58)
[2021-07-28] MEDS: FAMOTIDINE 20 MG TAB PO SCH (19:59)
[2021-07-28 20:08] LABS: Hematocrit (blood only) 24.6 % (37-47); Mean Corpuscular Hemoglobin 31.9 pg (25-34); Mean Corpuscular Hgb Conc 32.5 g/dL (32-36); Mean Platelet Volume 11.2 fL (7.4-10.4); Platelet Count 17 K/uL (130-400); RDW Coefficient of Variation 15.2 % (11.5-14.5); RDW Standard Deviation 53.8 fL (36.4-46.3); Red Blood Count 2.51 M/uL (4.2-5.4); White Blood Count 0.94 K/uL (4.8-10.8)
[2021-07-28 21:37] LABS: ALC (manual) 0.78 K/uL (1.2-3.4); ANC (manual) 0.02 K/uL (1.4-6.5); Eosinophils # (manual) 0.14 K/uL (0-0.5); Eosinophils % (manual) 14.5 %; Lymphocytes # (manual) 0.78 K/uL (1.2-3.4); Lymphocytes % (manual) 82.5 %; Monocytes # (manual) 0.01 K/uL (0.11-0.59); Neutrophils # (manual) 0.02 K/uL (1.4-6.5)
[2021-07-29] MEDS: CEFEPIME 2,000 MG in SYRINGE 0 ML IV SCH ×3 (01:05→17:36)
[2021-07-29 04:44] LABS: INR 1.1 (0.9-1.1); Partial Thromboplastin Ratio 1.3; Partial Thromboplastin Time 33.8 Seconds (21.0-31.0); Prothrombin Time 11.1 Seconds (9.0-12.0)
[2021-07-29 04:52] LABS: BUN Creatinine Ratio 46.3 (10-20); Calcium 8.1 mg/dl (8.5-10.1); Creatinine Clr Calc Pharmacy 103.7 ml/min; Est GFR (African American) 116.8 ml/min; Est GFR (Non-African American) 100.8 ml/min; Potassium 3.9 mmol/L (3.5-5.1)
[2021-07-29 05:15] LABS: Hematocrit (blood only) 24.9 % (37-47); Hemoglobin 8.3 g/dL (12.0-16.0); Mean Corpuscular Hemoglobin 32.9 pg (25-34); Mean Corpuscular Hgb Conc 33.3 g/dL (32-36); Mean Corpuscular Volume 98.8 fL (80-100); Mean Platelet Volume 11.6 fL (7.4-10.4); Nucleated RBC # (auto) 0.02 K/uL (0-0); Nucleated RBC % (auto) 2.6 %; Platelet Count 13 K/uL (130-400); RDW Coefficient of Variation 15.3 % (11.5-14.5); RDW Standard Deviation 54.4 fL (36.4-46.3); Red Blood Count 2.52 M/uL (4.2-5.4)
[2021-07-29 05:32] LABS: Platelet Estimate SIGNIFIC DECREASED (Normal); RBC Morphology Unremarkable
[2021-07-29 05:35] LABS: ALC (manual) 0.79 K/uL (1.2-3.4); Eosinophils # (manual) 0.11 K/uL (0-0.5); Eosinophils % (manual) 12.4 %; Lymphocytes # (manual) 0.64 K/uL (1.2-3.4); Lymphocytes % (manual) 70.8 %; Reactive Lymphocytes # (manual) 0.15 K/uL; Reactive Lymphocytes % (manual) 16.8 %
[2021-07-29] MEDS: METOPROLOL SUCC 50MG EXT REL TAB PO SCH (08:54)
[2021-07-29] MEDS: FOLIC ACID 400 MCG TAB PO SCH (08:54)
[2021-07-29] MEDS ORDERED: VANCOMYCIN TROUGH ONE (11:30)
[2021-07-29] MEDS: DOXYCYCLINE HYCLATE 100 MG in DEXTROSE 5% 100 ML IV SCH (11:47)
[2021-07-29] MEDS: VANCOMYCIN HCL 1,000 MG in SODIUM CHLORIDE 0.9% 250 ML IV SCH (11:47)
[2021-07-29 12:26] LABS: Epstein Barr Virus Early Ag Ab <9.00 U/mL
--- NOTE | 2021-07-29 13:40 | Pharmacy Report ---
Pharmacy Vanc AUC Short Note - Date of Service July 29, 2021 - Assessment & Plan Assessment * 81 year old F receiving empiric vancomycin + cefepime + doxycycline in the setting of fever, weakness, chills, SOB and pancytopenia * Patient is on immunosuppressive agents for RA; Humira and methotrexate * Neutrophil count on diff = 0 * History of shingles on bilateral glutes approximately 1 month ago which has resolved with valacyclovir treatment. * Recent treatment with doxycycline for presumed superimposed bacterial infection consistent with folliculitis in this area. * Day # 3 vancomycin, Day # 2 cefepime (after 1 day ceftriaxone), Day # 2 doxycycline * Renal fxn stable Plan Vancomycin * AUC/ANNE is the preferred PK/PD target for vancomycin * AUC guided dosing is effective and associated with decreased risk of nephrotoxicity compared to traditional trough targets * Has been receiving 1000mg IV Q 12 hrs. Trough level drawn prior to 3rd dose of this regimen = 10.7. Will change dose to 1250mg IV Q 12 hrs as this has a greater probability of achieving AUC/ANNE 400-600, and will a risk of nephrotoxicity of 10% * Will recheck level in 2 days if therapy to continue. Pharmacy will continue to follow and will adjust dose/frequency as necessary. Thank you.
--- NOTE | 2021-07-29 17:53 | Hospitalist Progress Note ---
Date of Service July 29, 2021 Assessment & Plan (1) Pancytopenia: Plan: Acquired pancytopenia, slightly improved on evening bloodwork. So far she is afebrile. Possible myelosuppression 2/2 MTX toxicity? wrong dose vs medication interaction? infection? Danny syndrome? Repeat us of spleen to rule out splenomegaly. May need bone marrow biopsy. Peripheral smear didn't show evidence of schistocytes or acute malignancy. Continues on broad spectrum antibiotics. Slight increase in heart rate with underlying afib rhythm. Not drinking and eating much today, appears dry. Starting some IVF to assist with this trend. Transfer to [facility] pending for continued investigation/treatment. (2) Sepsis: Plan: On broad spectrum antibiotic coverage. Possible sepsis on admission, resuscita true and improved at this point. She remains afebrile for approximately 24 hours now. Continue broad-spectrum antibiotics pending additional culture results and clinical improvement. (3) Rheumatoid arthritis: Plan: Holding Humira and Methotrexate for now (4) Dyslipidemia: Plan: - Continue statin (5) HTN (hypertension): Plan: Amlodipine and lisinopril held in setting of relative hypotension on admission. Continue beta-noel with hold parameters due to need for rate control for atrial fibrillation (6) Atrial fibrillation: Plan: Aspirin was stopped, continue metoprolol. (7) DVT prophylaxis: Plan: SCDs changed to DNR after discussion with her daughter. She and the patient discussed this last night and agreed upon the change. Patient is slightly confused at this time and cannot verify. Disposition-to [facility] once bed available DO Vadim Linda Hospitalist Admission and Anticipated Discharge Date Admission Date: July 27, 2021 Subjective 81-year-old female with a history of immunosuppression on methotrexate and Humira presented with progressive weakness and fatigue as well as dyspnea. Found to have new onset pancytopenia with critically low cell lines. some confusion daughter present at bedside discussed care plan/reviewed labs patient is feeling better, not in pain, afebrile tolerating PO Review of Systems Review of Systems: All systems were reviewed and negative except as indicated above, limited answers to questions as patient is confused. Physical Exam Physical Exam: CONSTITUTIONAL: elderly, frail, vitals as above, NAD EYES: normal conjunctivae, no scleral icterus ENT: external ear and nose normal, MMM, upper dentures are in place. NECK: trachea midline RESPIRATORY: clear to auscultation bilaterally, no crackles, rales or wheezes, normal respiratory effort CARDIOVASCULAR: regular rate and rhythm, S1 and 2 heard without murmurs, gallops or rubs, no JVD, no peripheral edema GASTROINTESTINAL: soft, nontender, no hepatomegaly, no guarding MUSCULOSKELETAL: strength 5/5 throughout, head is normocephalic and atraumatic, neck supple, normal palpation of chest wall without tenderness SKIN: warm and dry, multiple areas of ecchymosis along her chest and on her arms and upper back. NEUROLOGIC: CN 2-12 grossly intact, normal cognition, normal speech, no tremor, no gross focal deficit PSYCHIATRIC: alert cooperative and appears somewhat confused. Results & Data Results & Data ([facility]) Vital Signs (Past 12 Hours) Vital Signs Temp Pulse Resp BP Pulse Ox 07/29/21 16:00 111 H 14 111/72 92 07/29/21 11:55 107 H 14 107/74 94 07/29/21 06:31 36.8 C 119 H 16 113/72 94 Laboratory Results Short CBC 07/28/21 07/29/21 Range/Units 19:08 03:41 WBC 0.94 L* 0.90 L* (4.8-10.8) K/uL Hgb 8.0 L 8.3 L (12.0-16.0) g/dL Hct 24.6 L 24.9 L (37-47) % Plt Count 17 L* 13 L* (130-400) K/uL BMP 07/29/21 03:41 Sodium 136 Potassium 3.9 Chloride 107 Carbon Dioxide 23 BUN 18 Creatinine 0.38 L Glucose 94 Calcium 8.1 L Medications Administered Current Inpatient Medications Acetaminophen (Acetaminophen 325 Mg Tab) 650 mg PO Q4H PRN PRN Reason: Pain or Fever Stop: 08/26/21 11:27 Famotidine (Famotidine 20 Mg Tab) 20 mg PO PM SKYLER Stop: 08/26/21 20:59 Last Admin: 07/28/21 19:59 Dose: 20 mg Documented by: Folic Acid (Folic Acid 400 Mcg Tab) 400 mcg PO DAILY SKYLER Stop: 08/27/21 08:59 Last Admin: 07/29/21 08:54 Dose: 400 mcg Documented by: Doxycycline Hyclate 100 mg/ (Dextrose) 110 mls @ 50 mls/hr IV Q12H [facility] Stop: 08/03/21 11:27 Last Infusion: 07/29/21 14:04 Dose: Infused Documented by: Cefepime HCl 2,000 mg/ Syringe 20 mls @ 5 mls/min IV Q8H [facility]; Protocol Stop: 08/04/21 09:59 Last Admin: 07/29/21 17:36 Dose: 5 mls/min Documented by: Vancomycin HCl 1,250 mg/ (Sodium Chloride) 275 mls @ 200 mls/hr IV Q12H [facility] Stop: 08/04/21 11:59 Sodium Chloride (Nss 1000ml) 1,000 mls @ 125 mls/hr IV .Q8H [facility] Stop: 07/30/21 09:59 Metoprolol Succinate (Metoprolol Succ 50mg Ext Rel Tab) 200 mg PO DAILY [facility] Stop: 08/27/21 08:59 Last Admin: 07/29/21 08:54 Dose: 200 mg Documented by: Miscellaneous Information (Vancomycin Consult Active) 0 ea N/A UD PRN PRN Reason: Consult Stop: 08/26/21 10:40 Pravastatin Sodium (Pravastatin Sod 40 Mg Tab) 80 mg PO HS [facility] Stop: 08/26/21 20:59 Last Admin: 07/28/21 19:58 Dose: 80 mg Documented by: (1) Atrial fibrillation Atrial fibrillation type: unspecified Qualified Code(s): I48.91 - Unspecified atrial fibrillation
[2021-07-29] MEDS: SODIUM CHLORIDE 0.9% 1000ML 1,000 ML IV SCH (18:07)
[2021-07-29 18:11] LABS: Hematocrit (blood only) 26.7 % (37-47); Hemoglobin 8.6 g/dL (12.0-16.0); Mean Corpuscular Hemoglobin 32.1 pg (25-34); Mean Corpuscular Hgb Conc 32.2 g/dL (32-36); Mean Corpuscular Volume 99.6 fL (80-100); Mean Platelet Volume 12.6 fL (7.4-10.4); Platelet Count 20 K/uL (130-400); Platelet Estimate SIGNIFIC DECREASED (Normal); RDW Coefficient of Variation 15.3 % (11.5-14.5); RDW Standard Deviation 55.1 fL (36.4-46.3); Red Blood Count 2.68 M/uL (4.2-5.4); White Blood Count 1.03 K/uL (4.8-10.8)
[2021-07-29 18:13] LABS: ALC (manual) 0.95 K/uL (1.2-3.4); ANC (manual) 0.02 K/uL (1.4-6.5); Eosinophils # (manual) 0.06 K/uL (0-0.5); Lymphocytes # (manual) 0.95 K/uL (1.2-3.4); Lymphocytes % (manual) 92.3 %; Neutrophils # (manual) 0.02 K/uL (1.4-6.5)
[2021-07-29] MEDS: FAMOTIDINE 20 MG TAB PO SCH (19:57)
[2021-07-29] MEDS: PRAVASTATIN SOD 40 MG TAB PO SCH (19:57)
--- NOTE | 2021-07-29 20:07 | Ultrasound Report ---
SPLEEN ULTRASOUND HISTORY: Evaluate for splenomegaly. COMPARISON: PET/CT April 07, 2017. TECHNIQUE: Sonography of the spleen was performed. FINDINGS: The size of the spleen is at the lower limits of normal, measuring 7.9 cm in maximal sagitt al dimension. A few calcifications within the spleen favor granulomas. There is no perisplenic fluid. Left pleural effusion is incidentally noted. IMPRESSION: No evidence for splenomegaly. ACT 112: Negative or not required by law. Electronically signed by: Holland Barros M.D. 07/29/2021 8:06 PM
[2021-07-30] MEDS: VANCOMYCIN HCL 1,250 MG in SODIUM CHLORIDE 0.9% 250 ML IV SCH ×2 (00:20→11:56)
[2021-07-30] MEDS: DOXYCYCLINE HYCLATE 100 MG in DEXTROSE 5% 100 ML IV SCH ×2 (00:21→11:54)
[2021-07-30] MEDS: CEFEPIME 2,000 MG in SYRINGE 0 ML IV SCH ×2 (02:02→11:13)
[2021-07-30] MEDS: SODIUM CHLORIDE 0.9% 1000ML 1,000 ML IV SCH (04:23)
[2021-07-30 05:19] LABS: BUN Creatinine Ratio 32.1 (10-20); Calcium 7.6 mg/dl (8.5-10.1); Creatinine Clr Calc Pharmacy 89.5 ml/min; Est GFR (African American) 111.3 ml/min; Potassium 3.4 mmol/L (3.5-5.1)
[2021-07-30 05:31] LABS: C Reactive Protein 20.3 mg/dl (0-0.29)
[2021-07-30 05:47] LABS: Hematocrit (blood only) 24.6 % (37-47); Mean Corpuscular Hemoglobin 32.5 pg (25-34); Mean Corpuscular Hgb Conc 32.5 g/dL (32-36); Mean Platelet Volume 11.4 fL (7.4-10.4); Nucleated RBC # (auto) 0.02 K/uL (0-0); Nucleated RBC % (auto) 1.4 %; Platelet Count 28 K/uL (130-400); RDW Coefficient of Variation 15.4 % (11.5-14.5); RDW Standard Deviation 55.9 fL (36.4-46.3); Red Blood Count 2.46 M/uL (4.2-5.4); White Blood Count 1.32 K/uL (4.8-10.8)
[2021-07-30 05:48] LABS: Platelet Estimate Decreased (Normal)
[2021-07-30] MEDS: METOPROLOL SUCC 50MG EXT REL TAB PO SCH (08:04)
[2021-07-30] MEDS: FOLIC ACID 400 MCG TAB PO SCH (08:04)
[2021-07-30 09:56] LABS: ANC (manual) 0.05 K/uL (1.4-6.5); Blast # (manual) 0.03 K/uL (0-0); Eosinophils # (manual) 0.28 K/uL (0-0.5); Monocytes # (manual) 0.07 K/uL (0.11-0.59); Neutrophils # (manual) 0.05 K/uL (1.4-6.5)
--- NOTE | 2021-07-30 14:27 | Discharge Summary ---
Date of Service July 30, 2021 Admission HPI Per Admitting Provider This is a 81 y/o female with a PMH of RA on methotrexate and Humira, chronic atrial fibrillation but not on AC due to fall risk/hx anemia, HTN, GERD, emphysema, dyslipidemia, pulmonary nodule, hx breast cancer s/p partial mastectomy/Arimidex and osteoporosis who presented to the ED today with progressive weakness and fatigue. At the end of Apr, pt was noted to have a rash on left thigh/buttock that was determined to be shingles - treated with 10 day course of valacyclovir and Humira held due to active infection. Resumed end of May per pt with last dose of Humira about a week ago. At the end of Jun, pt was seen by PCP and noted to have a folliculitis of the left buttock for which she was put on doxycycline. She states that she has been taking this as prescribed but is unsure if it is helping with the rash and it didn't significantly bother her to begin with. Then, pt was originally seen in the ED at this facility on 07/23/21 for a sore throat, which was treated with supportive care and outpatient f/u with PCP/ENT. Labs at that visit showed a drop in her platelet count from normal to 40. She comes back today feeling worse and was noted to have worsening thrombocytopenia, anemia, and leukopenia. Currently, pt reports significant weakness and fatigue. She notes that her oral intake has been decreased due to the sore throat and a loss of appetite. She denies abdominal pain, N/V/D. The sore throat is about the same as when she was here four days ago - no better, no worse. Has noted a mild cough but non-productive. Denies chest pain, palpitations, SOB, wheezing, CARDOZA, Dizziness, fevers. Has noted some chills. Denies any prior transfusion history that she can reall Admission Exam Per Admitting Provider Constitutional: + frail appearing and cooperative; no ac sima distress Eyes: PERRL, conjunctivae normal, anicteric sclerae ENMT: Ears: + TM abnormality (left TM with fluid but no erythema) left tonsil enlarged with ?exudate, blood in posterior oropharynx, dried blood around mouth - no clear source of active bleeding at present Neck: trachea midline No lymphadenopathy or tenderness in the anterior/posterior cervical, pre-auricular, submandibular, submental or supraclavicular chains Respiratory: no respiratory distress and no labored breathing Auscultation: lungs clear to auscultation bilaterally; no rales, no rhonchi and no wheezes Cardiovascular: Rate/Rhythm: + tachycardic and + irregularly irregular Gastrointestinal (Abdomen): Inspection/Auscultation: normal bowel sounds; abdomen not distended Percussion/Palpation: + abdomen tender (mild RUQ), abdomen soft and + tympanic to percussion; no splenomegaly Skin: + dry skin multiple areas of ecchymosis on arms related to blood draws/lines, left buttock with multiple tiny scabbed areas but no surrounding erythema or warmth Neurologic: moves all extremities; no focal motor deficits Psychiatric: A+Ox3, euthymic affect Principal Diagnosis Pancytopenia Immunosuppressed state Sepsis Rheumatoid arthritis Discharge Exam CONSTITUTIONAL: elderly, frail, vitals as above, NAD EYES: normal conjunctivae, no scleral icterus ENT: external ear and nose normal, MMM, upper dentures are in place. NECK: trachea midline RESPIRATORY: clear to auscultation bilaterally, no crackles, rales or wheezes, normal respiratory effort CARDIOVASCULAR: regular rate and rhythm, S1 and 2 heard without murmurs, gallops or rubs, no JVD, no peripheral edema GASTROINTESTINAL: soft, nontender, no hepatomegaly, no guarding MUSCULOSKELETAL: strength 5/5 throughout, head is normocephalic and atraumatic, neck supple, normal palpation of chest wall without tenderness SKIN: warm and dry, multiple areas of ecchymosis along her chest and on her arms and upper back. NEUROLOGIC: CN 2-12 grossly intact, normal cognition, normal speech, no tremor, no gross focal deficit PSYCHIATRIC: alert cooperative and appears somewhat confused. Discharge Data Allergies Allergy/AdvReac Type Severity Reaction Status Date / Time No Known Allergies Allergy NONE Verified 07/23/21 19:18 Ordered Studies Laboratory Results WBC 1.32 K/uL (4.8-10.8) L 07/30/21 04:06 RBC 2.46 M/uL (4.2-5.4) L 07/30/21 04:06 Hgb 8.0 g/dL (12.0-16.0) L 07/30/21 04:06 Hct 24.6 % (37-47) L 07/30/21 04:06 MCV 100.0 fL (80-100) 07/30/21 04:06 MCH 32.5 pg (25-34) 07/30/21 04:06 MCHC 32.5 g/dL (32-36) 07/30/21 04:06 RDW Std Deviation 55.9 fL (36.4-46.3) H 07/30/21 04:06 RDW Coeff of Ezra 15.4 % (11.5-14.5) H 07/30/21 04:06 Plt Count 28 K/uL (130-400) L* 07/30/21 04:06 MPV 11.4 fL (7.4-10.4) H 07/30/21 04:06 Immature Gran % (Auto) 2.9 % 07/27/21 07: Neut % (Auto) 2.9 % 07/27/21 07:21 Lymph % (Auto) 91.3 % 07/27/21 07:21 [place] % (Auto) 0.0 % 07/27/21 07: Eos % (Auto) 2.9 % 07/27/21 07:21 Baso % (Auto) 0.0 % 07/27/21 07:21 Reticulocyte % (Auto) < 0.5 % (0.5-2.0) L 07/27/21 07:21 Neut # (Auto) 0.02 K/uL (1.4-6.5) L* 07/27/21 07:21 Lymph # (Auto) 0.63 K/uL (1.2-3.4) L 07/27/21 07:21 [place] # (Auto) 0.00 K/uL (0.11-0.59) L 07/27/21 07:21 Eos # (Auto) 0.02 K/uL (0-0.5) 07/27/21 07:21 Baso # (Auto) 0.00 K/uL (0-0.2) 07/27/21 07:21 Reticulocyte # < 0.02 10^6/uL (0.02-0.10) L 07/27/21 07:21 Immature Gran # (Auto) 0.02 K/uL (0.00-0.02) 07/27/21 07:21 Absolute Nucleated RBC 0.02 K/uL (0-0) H 07/30/21 04:06 Nucleated RBC % (auto) 1.4 % 07/30/21 04:06 Neutrophils % (Manual) 4.0 % 07/30/21 04:06 Band Neutrophils % Cancelled 07/27/21 05:46 Lymphocytes % (Manual) 68.0 % 07/30/21 04:06 Prolymphocyte % Cancelled 07/27/21 05:46 Reactive Lymphs % (Man) 16.8 % 07/29/21 03:41 Monocytes % (Manual) 5.0 % 07/30/21 04:06 Eosinophils % (Manual) 21.0 % 07/30/21 04:06 Basophils % (Manual) Cancelled 07/27/21 05:46 Metamyelocytes % (Man) Cancelled 07/27/21 05:46 Myelocytes % (Man) Cancelled 07/27/21 05:46 Promyelocytes % (Man) Cancelled 07/27/21 05:46 Blast Cells % (Manual) 2.0 % 07/30/21 04:06 Plasma Cell % (Manual) Cancelled 07/27/21 05:46 Other Cells % Cancelled 07/27/21 05:46 Nucleated RBC % Cancelled 07/27/21 05:46 Neutrophils # (Manual) 0.05 K/uL (1.4-6.5) L 07/30/21 04:06 Band Neutrophils # Cancelled 07/27/21 05:46 Total Absolute Neuts 0.05 K/uL (1.4-6.5) L* 07/30/21 04:06 Lymphocytes # (Manual) 0.90 K/uL (1.2-3.4) L 07/30/21 04:06 Prolymphocyte # Cancelled 07/27/21 05:46 Reactive Lymphs # 0.15 K/uL 07/29/21 03:41 Total Abs Lymphocytes 0.90 K/uL (1.2-3.4) L 07/30/21 04:06 Monocytes # (Manual) 0.07 K/uL (0.11-0.59) L 07/30/21 04:06 Eosinophils # (Manual) 0.28 K/uL (0-0.5) 07/30/21 04:06 Basophils # (Manual) Cancelled 07/27/21 05:46 Metamyelocytes # (Man) Cancelled 07/27/21 05:46 Myelocytes # (Manual) Cancelled 07/27/21 05:46 Promyelocytes # (Man) Cancelled 07/27/21 05:46 Blast Cells # (Man) 0.03 K/uL (0-0) H 07/30/21 04:06 Plasma Cell # (Manual) Cancelled 07/27/21 05:46 Other Cells # Cancelled 07/27/21 05:46 Nucleated RBCs # (Man) Cancelled 07/27/21 05:46 Hypersegmented Neuts Cancelled 07/27/21 05:46 Hyposegmented Neuts Cancelled 07/27/21 05:46 Hypogranular Neuts Cancelled 07/27/21 05:46 Large Granular Lymphs Cancelled 07/27/21 05:46 # Lrg Granular Lymphs Cancelled 07/27/21 05:46 Hairy Cells Cancelled 07/27/21 05:46 Smudge Cells Cancelled 07/27/21 05:46 Blood Smear Review 07/30/21 04:06 Toxic Granulation Cancelled 07/27/21 05:46 Toxic Vacuolation Cancelled 07/27/21 05:46 Dohle Bodies Cancelled 07/27/21 05:46 Ryan Rods Cancelled 07/27/21 05:46 Platelet Estimate Decreased (Normal) L 07/30/21 04:06 Hypogranular Platelets Cancelled 07/27/21 05:46 Clumped Platelets Cancelled 07/27/21 05:46 Giant Platelets Cancelled 07/27/21 05:46 Platelet Satelliting Cancelled 07/27/21 05:46 RBC Morphology Unremarkable 07/29/21 03:41 Polychromasia Cancelled 07/27/21 05:46 Hypochromasia Cancelled 07/27/21 05:46 Poikilocytosis Cancelled 07/27/21 05:46 Basophilic Stippling Cancelled 07/27/21 05:46 Anisocytosis Cancelled 07/27/21 05:46 Microcytosis Cancelled 07/27/21 05:46 Macrocytosis Cancelled 07/27/21 05:46 Spherocytes Cancelled 07/27/21 05:46 Pappenheimer Bodies Cancelled 07/27/21 05:46 Sickle Cells Cancelled 07/27/21 05:46 Target Cells Cancelled 07/27/21 05:46 Tear Drop Cells Cancelled 07/27/21 05:46 Ovalocytes Cancelled 07/27/21 05:46 Stomatocytes Cancelled 07/27/21 05:46 [place] Bodies Cancelled 07/27/21 05:46 Echinocytes Cancelled 07/27/21 05:46 Acanthocytes (Spur) Cancelled 07/27/21 05:46 Rouleaux Cancelled 07/27/21 05:46 RBC Agglutinates Cancelled 07/27/21 05:46 Schistocytes Cancelled 07/27/21 05:46 RBC Morph Comment Cancelled 07/27/21 05:46 Peripher Smr Path Cons 07/27/21 07:21 Peripher Smr Path Cons Cancelled 07/27/21 07:21 ESR 53 mm/hr (0-30) H 07/30/21 04:06 Sezary Cell Cancelled 07/27/21 05:46 PT 11.1 Seconds (9.0-12.0) 07/29/21 03:41 INR 1.1 (0.9-1.1) 07/29/21 03:41 APTT 33.8 Seconds (21.0-31.0) H 07/29/21 03:41 PTT Ratio 1.3 07/29/21 03:41 Fibrinogen 480 mg/dl (184-400) H 07/27/21 18:05 Sodium 134 mmol/L (136-145) L 07/30/21 04:06 Potassium 3.4 mmol/L (3.5-5.1) L 07/30/21 04:06 Chloride 106 mmol/L (98-107) 07/30/21 04:06 Carbon Dioxide 21 mmol/L (21-32) 07/30/21 04:06 Anion Gap 7.0 (3-11) 07/30/21 04:06 BUN 14 mg/dl (7-18) 07/30/21 04:06 Creatinine 0.44 mg/dl (0.6-1.2) L 07/30/21 04:06 Est Cr Clr Drug Dosing 89.5 ml/min 07/30/21 04:06 Est GFR ( Amer) 111.3 ml/min 07/30/21 04:06 Est GFR (Non-Af Amer) 96.0 ml/min 07/30/21 04:06 BUN/Creatinine Ratio 32.1 (10-20) H 07/30/21 04:06 Glucose 89 mg/dl (70-99) 07/30/21 04:06 Lactate 1.7 mmol/L (0.4-2.0) 07/27/21 05:01 Calcium 7.6 mg/dl (8.5-10.1) L 07/30/21 04:06 Magnesium 2.7 mg/dl (1.8-2.4) H 07/28/21 04:40 Total Bilirubin 1.3 mg/dl (0.2-1) H 07/27/21 03:54 AST 9 U/L (15-37) L 07/27/21 05:46 ALT 16 (12-78) 07/27/21 03:54 Alkaline Phosphatase 77 U/L (45-117) 07/27/21 03:54 Lactate Dehydrogenase 144 U/L (84-246) 07/29/21 03:41 Troponin I < 0.015 ng/ml (0-0.045) 07/27/21 03:54 C-Reactive Protein 20.30 mg/dl (0-0.29) H 07/30/21 04:06 Total Protein 6.7 gm/dl (6.4-8.2) 07/27/21 03:54 Albumin 2.2 gm/dl (3.4-5.0) L 07/27/21 03:54 Globulin 4.5 gm/dl (2.5-4.0) H 07/27/21 03:54 Albumin/Globulin Ratio 0.5 (0.9-2) L 07/27/21 03:54 Procalcitonin 0.11 ng/ml (0-0.5) 07/27/21 05:46 Urine Color Yellow 07/27/21 06:49 Urine Appearance Clear (Clear) 07/27/21 06:49 Urine pH 5.0 (4.5-7.5) 07/27/21 06:49 Ur Specific [place] > 1.045 (1.000-1.030) H 07/27/21 06:49 Urine Protein Negative (Negative) 07/27/21 06:49 Urine Glucose (UA) Negative (Negative) 07/27/21 06:49 Urine Ketones Negative (Negative) 07/27/21 06:49 Urine Blood Negative (Negative) 07/27/21 06:49 Urine Nitrite Negative (Negative) 07/27/21 06:49 Urine Bilirubin Negative (Negative) 07/27/21 06:49 Urine Urobilinogen Negative (Negative) 07/27/21 06:49 Ur Leukocyte Esterase Negative (Negative) 07/27/21 06:49 Vancomycin Trough 10.7 mcg/ml (See Comment) 07/29/21 11:26 Lyme Disease IgG Ab Negative (Negative) 07/27/21 18:05 Lyme Disease IgM Ab Negative (Negative) 07/27/21 18:05 SARS-CoV-2 (PCR) NEGATIVE (Negative) 07/27/21 04:10 EBV Capsid Ag IgG Ab 283.00 U/mL H 07/27/21 18:05 EBV Capsid Ag IgM Ab <36.00 U/mL 07/27/21 18:05 EBV EA Restrict+Diffuse <9.00 U/mL 07/27/21 18:05 EBV Nuclear Antigen Ab 566.00 U/mL H 07/27/21 18:05 EBV Antibody Interp SEE NOTE 07/27/21 18:05 Monoscreen Negative (Negative) 07/27/21 18:05 Influenza Type A (PCR) Negative (Neg) 07/27/21 04:10 Influenza Type B (PCR) Negative (Neg) 07/27/21 04:10 RSV (RT-PCR) Negative (Neg) 07/27/21 04:10 Blood Type O Positive 07/27/21 07:21 Impressions Chest X-Ray 07/27/21 02:52 XR chest 1V portable CLINICAL HISTORY: Shortness of breath. COMPARISON STUDY: Chest radiograph June 03, 2021. FINDINGS: Cardiomegaly is unchanged. There is no evidence for pulmonary edema. Small right pleural effusion is unchanged. There is no pneumothorax. An 8 mm nodular density projects over the right midlung. No lobar consolidation is present. Degenerative changes of both shoulders are incidentally noted. IMPRESSION: 1. No significant change in a small right pleural effusion. 2. Cardiomegaly without evidence for pulmonary edema. 3. 8 mm nodular density within the right midlung. This may reflect a pulmonary nodule, scarring or minimal airspace disease and can be assessed on follow-up CT. ACT 112: Negative or not required by law. Electronically signed by: Holland Barros M.D. 07/27/2021 9:28 AM Chest CTA 07/27/21 04:21 CT ANGIOGRAPHY OF THE CHEST, PULMONARY EMBOLUS PROTOCOL CLINICAL HISTORY: Shortness of breath. Fatigue. Evaluate for pulmonary embolus. COMPARISON STUDY: Chest CT September 03, 2016. Chest radiograph performed earlier today. TECHNIQUE: Following IV administration of 120 mL of Optiray, helical axial images of the chest were obtained utilizing the pulmonary embolus protocol. Maximal intensity projections and sagittal and coronal reformats were viewed on an independent 3D workstation. IV contrast was administered without complication. Automated exposure control was utilized for the study. A dose lowering technique was utilized adhering to the principles of ALARA. CT DOSE: 349.09 mGy.cm FINDINGS: No pulmonary emboli are identified. There is moderate to marked cardiomegaly. Trace pericardial effusion is noted. There is a small hiatal hernia. There is no pneumothorax. Small right and trace left pleural effusions are noted. There are multifocal groundglass opacities within the left lower lobe. There are scattered tree-in-bud nodules within the lungs. The previously described right middle lobe nodule is not identified on this examination. There is an irregular hyperdense 2.5 cm subpleural density within the right lower lobe on image 51 of 271. There is a similar-appearing 3.7 cm subpleural hyperdense subpleural focus within the right lower lobe on image 41. Central airways are patent. A cyst within the upper pole of the left kidney is incidentally noted. IMPRESSION: 1. No pulmonary emboli identified. 2. Multifocal groundglass opacities within the left lower lobe. The findings favor an infectious process. 3. A few indeterminate hypodense subpleural right lower lobe densities. These could reflect scar. Neoplastic process is considered less likely but is within the differential. A follow-up chest CT in 6 months is recommended. 4. Scattered tree-in-bud nodules within the lungs which are likely infectious or inflammatory. However, these can be assessed on follow-up CT to ensure resolution. 5. Moderate to marked cardiomegaly. 6. Small right and trace left pleural effusions. ACT 112: Negative or not required by law. Electronically signed by: Holland Barros M.D. 07/27/2021 8:53 AM Abdomen Ultrasound 07/29/21 17:51 SPLEEN ULTRASOUND HISTORY: Evaluate for splenomegaly. COMPARISON: PET/CT April 07, 2017. TECHNIQUE: Sonography of the spleen was performed. FINDINGS: The size of the spleen is at the lower limits of normal, measuring 7.9 cm in maximal sagittal dimension. A few calcifications within the spleen favor granulomas. There is no perisplenic fluid. Left pleural effusion is incidentally noted. IMPRESSION: No evidence for splenomegaly. ACT 112: Negative or not required by law. Electronically signed by: Holland Barros M.D. 07/29/2021 8:06 PM Hospital Course (1) Pancytopenia: Acquired pancytopenia, slightly improved on evening bloodwork. So far she is afebrile. Possible myelosuppression 2/2 MTX toxicity? wrong dose vs medication interaction? infection? Danny syndrome? Repeat ultrasound reveals no evidence of splenomegaly. May need bone marrow biopsy. Peripheral smear didn't show evidence of schistocytes or acute malignancy. Continues on broad spectrum antibiotics. Slight increase in heart rate with underlying afib rhythm. Not drinking and eating much tthis admission, appears dry. Started some IVF on PM 12 with some improvement in heart rate. Transfer to [facility] pending for continued investigation/treatment. (2) Sepsis: On broad spectrum antibiotic coverage. Possible sepsis on admission, resuscitated and improved at this point. She remains afebrile for approximately 24 hours now. Continue broad-spectrum antibiotics pending additional culture results and clinical improvement. (3) Rheumatoid arthritis: Holding Humira and Methotrexate for now (4) HTN (hypertension): Amlodipine and lisinopril held in setting of relative hypotension on admission. Continue beta-noel with hold parameters due to need for rate control for atrial fibrillation (5) Atrial fibrillation: Aspirin was stopped, continue metoprolol. (6) DVT prophylaxis: SCDs Code status changed to DNR after discussion with her daughter. She and the patient discussed this together and agreed upon the change. Intermittent sundowning this hospital stay. Transferred to [facility]. DO Vadim Linda Hospitalist Total Time Total Time Spent Total Time Spent (In Minutes): 60 Discharge Plan Discharge Items Patient Disposition: Transfer Acute Care Hospital Reason For Visit: TTP Discharge Diagnosis: Pancytopenia Immunosuppressed state Sepsis Rheumatoid arthritis Condition on Discharge: Serious Activity: Resume your previous activity Non-emergency contact: Primary Care Provider Call non-emergency contact if: you have any medication questions, your symptoms worsen and you have a fever Follow-up/Referrals: Aniyah Lujan DO [Primary Care Provider] - Diet: Regular Addtl Attending Provider Instructions: You are being transferred to [facility] for further work-up and treatment of your medical symptoms. It is recommended that you follow-up with your primary care doctor within 1 week of discharge from that hospital. It was a pleasure taking care of you! Please call if you have any questions or problems. You can reach a [facility] hospitalist on duty at [facility] 24 hours a day by calling [phone]. Take care of yourself. Tracey Root [facility] Pending Studies at Discharge: Yes Studies:: [id number] activity level pending, VW activity level pending, Blood cultures pending. Stand-Alone Forms: My [facility] Skilled Items Patient informed of condition?: Yes DNR: No Discharge Level of Care: Other Communicable Disease: No Discharge Prognosis: Stable Lines: Peripheral IV Urinary Catheter: No Medications and DC Order Prescriptions: Continued methotrexate sodium 2.5 mg tablet 10 mg PO WK RF: 0 ferrous sulfate [iron] 325 mg (65 mg iron) Tablet 325 mg PO DAILY RF: 0 Centrum Silver 0.4-300-250 mg-mcg-mcg Tablet 1 tab PO DAILY RF: 0 Humira Pen 40 mg/0.8 mL pen injector kit 40 mg SUBCUT MONTHLY RF: 0 metoprolol succinate 200 mg tablet extended release 24 hr 200 mg PO DAILY RF: 0 lisinopril 20 mg tablet 20 mg PO DAILY RF: 0 aspirin [Aspirin Low Dose] 81 mg Tablet,Delayed Release (Dr/Ec) 81 mg PO DAILY RF: 0 famotidine 20 mg tablet 20 mg PO PM RF: 0 pravastatin 80 mg tablet 80 mg PO HS RF: 0 amlodipine 10 mg tablet 10 mg PO DAILY RF: 0 alendronate 70 mg tablet 70 mg PO WK RF: 0 acetaminophen [Tylenol Extra Strength] 500 mg Tablet 1,000 mg PO HS RF: 0 furosemide [Lasix] 20 mg tablet 20 mg PO DAILY PRN (Reason: SWELLING) RF: 0 doxycycline hyclate 100 mg capsule 100 mg PO BID RF: 0 folic acid 400 mcg Tablet 0.4 mg PO DAILY RF: 0 fluticasone propionate 50 mcg/actuation [place],Suspension 2 spray INTRANASAL DAILY RF: 0 Discharge Orders: Discharge Order (Routine); Ordered 07/30/21 Ordered By: Tracey Root Admission Data Admit Date/Time: 07/27/21 10:05 Attending Provider: Tracey Root Admit Provider: Tracey Root Primary Care Provider: Aniyah Lujan
[2021-07-31] MEDS ORDERED: VANCOMYCIN TROUGH ONE (11:30)
[2021-08-06 01:40] LABS: Q Fever IgG, Phase I NEGATIVE; Q Fever Phase I IgM Antibody NEGATIVE; Q Fever Phase II IgG Antibody NEGATIVE; Q Fever Phase II IgM Antibody NEGATIVE; R. typhi IgG Ab NOT DETECTED; R. typhi IgM Ab NOT DETECTED; RMSF IgG Ab NOT DETECTED; RMSF IgM Ab NOT DETECTED
--- NOTE | 2021-08-08 09:40 | Coding Query ---
To promote full compliance with coding requirements relating to patient care, provider participation is requested in all cases of pearl glue drier uncertainty. Please assist us with the question(s) below: Coding Question(s): The diagnosis below was documented in the ER and H&P, then subsequently fell off all further documentation. Please indicate if it is still a possible diagnosis or ruled out. Physician's Response(s): QUESTIONABLE PNEUMONIA ( x ) Diagnosed and POA-I would agree this may have been a possible diagnosis in the differential, and it would have been present on admission. ( ) Diagnosed and not POA ( ) Ruled out ( ) Other (please specify) MTDD
--- NOTE | 2021-08-08 09:43 | Coding Query ---
CODING QUERY To promote full compliance with coding requirements relating to patient care, provider participation is requested in all cases of laundry machine operator uncertainty. Please assist us with the question(s) below: Coding Question(s): Sepsis is documented in the record. Please specify below, in your clinical opinion, regarding the most likely source of Sepsis. ( x ) Sepsis most likely due to questionable Pneumonia ( ) Sepsis most likely due to Other: Please Specify ( ) Sepsis most likely due to Unknown possible source Physician's Response(s): Thank you Edilma Blood Principal Diagnosis: "that condition established after study, to be chiefly responsible for occasioning the admission of the patient to the hospital for care." Co-Existing Principal Diagnosis: "when two or more diagnoses equally meet the criteria for principal diagnosis as determined by the circumstances of admission, diagnostic work up, and/or therapy provided, and the Alphabetic Index, Tabular List, or another coding guideline does not provide sequencing direction, any one of the diagnoses may be sequenced first." "When the physician has documented what appears to be a current diagnosis in the body of the record, but has not included the diagnosis in the final diagnostic statement, the physician should be asked whether the diagnosis should be added." (Source Coding Clinic 2 QTR90. p3-4) ADONIS
== END 2021-07-30 15:04 | disposition short-term general hospital (02) | DRG 808 ==
LOC: ED 02:44 → 2S 10:05 → 1E 20:24
DX: D61.811 Other drug-induced pancytopenia; I48.20 Chronic atrial fibrillation, unspecified; D84.9 Immunodeficiency, unspecified; E78.5 Hyperlipidemia, unspecified; Z20.822 Contact with and (suspected) exposure to COVID-19; Z79.899 Other long term (current) drug therapy; K21.9 Gastro-esophageal reflux disease without esophagitis; N19 Unspecified kidney failure; D61.818 Other pancytopenia; D50.9 Iron deficiency anemia, unspecified; I10 Essential (primary) hypertension; J03.90 Acute tonsillitis, unspecified; Z86.19 Personal history of other infectious and parasitic diseases; J43.9 Emphysema, unspecified; Z66 Do not resuscitate; Z82.49 Family history of ischemic heart disease and other diseases of the circulatory system; M06.9 Rheumatoid arthritis, unspecified; A41.9 Sepsis, unspecified organism; M81.0 Age-related osteoporosis without current pathological fracture; Z86.718 Personal history of other venous thrombosis and embolism; Z79.82 Long term (current) use of aspirin; Z79.52 Long term (current) use of systemic steroids; J18.9 Pneumonia, unspecified organism; T45.1X5A Adverse effect of antineoplastic and immunosuppressive drugs, initial encounter